=== PATIENT | female | born 1980 | race Caucasian/White ===

== ENCOUNTER 2016-07-02 11:25 | Emergency (ER) | payer BC ==
--- NOTE | 2016-07-02 12:10 | ED ---
Lower Extremity Injury HPI - General Chief Complaint: Extremity Injury, Lower Stated Complaint: left foot pain Time Seen by Provider: 07/02/16 12:04 Source: patient Mode of arrival: ambulatory Limitations: no limitations - History of Present Illness Initial Comments: Patient is a 35-year-old female presenting to the hospital with complaints of left plantar foot pain that started yesterday. Patient does not recall any injury to foot. Patient states she was just released from the hospital yesterday for pancreatitis and is currently awaiting surgery for cholecystectomy. Patient currently rates pain 2 out of 10 at rest, 8 out of 10 when she attempts to walk on it. Patient describes pain as sharp when she tries to walk on it and states it feels like his pocket of fluid just proximal to her fourth and fifth toes. Patient denies any previous injury or surgery to her left lower extremity. Patient states she took a Vicodin this morning mostly for her abdominal pain. Patient denies chills, fevers, nausea, vomiting , shortness of breath, chest pain, numbness or tingling. - Related Data Home Medications Medication Instructions Recorded Confirmed Levothyroxine Sodium [Synthroid] 25 mcg PO DAILY 12/07/14 07/02/16 Albuterol Sulfate [Proair Hfa] 2 puff INHALATION RT-Q6H PRN 04/26/15 07/02/16 Cholecalciferol [Vitamin D3] 1,000 unit PO DAILY 04/26/15 07/02/16 Montelukast Sodium [Singulair] 10 mg PO DAILY 07/02/16 07/02/16 Allergies Allergy/AdvReac Type Severity Reaction Status Date / Time venom-honey bee Allergy Unknown Verified 07/02/16 11:55 [bee venom (honey bee)] Review of Systems ROS Statement: Those systems with pertinent positive or pertinent negative responses have been documented in the HPI. ROS Other: All systems not noted in ROS Statement are negative. Past Medical History Past Medical History: Thyroid Disorder Additional Past Medical History / Comment(s): 04/26/15 Pt presented to [facility] ER with upper abdominal pain. Pain is severe, epigastric and radiates to her back. She has had N/V with it. Pain began last Sunday. She is admitted with clinical impression of pancreatitis. Other HX: pancreatitis, hypokalemia, hypothyroidism. History of Any Multi-Drug Resistant Organisms: None Reported Past Surgical History: Section, Orthopedic Surgery Additional Past Surgical History / Comment(s): R foot injury-Sx repair. Past Anesthesia/Blood Transfusion Reactions: No Reported Reaction Additional Past Anesthesia/Blood Transfusion Reaction / Comment(s): Pt states she has never recieved blood. Past Psychological History: Anxiety Additional Psychological History / Comment(s): Pt resides with her spouse and children. She is independent. She drives. Homemaker Smoking Status: Current every day smoker Past Alcohol Use History: Occasional Additional Past Alcohol Use History / Comment(s): Pt states she started smoking at age 17yrs and is alittle less than a ppd smoker. Pt states she drinks less than 7 drinks per week. Past Drug Use History: None Reported - Past Family History Father Family Medical History: Congestive Heart Failure (CHF) Additional Family Medical History / Comment(s): Father has a pacer. He is 63 yrs old. Mother Family Medical History: Cancer Additional Family Medical History / Comment(s): Mother had uterine cancer. She is 59 yrs old. General Exam Limitations: no limitations General appearance: alert, in no apparent distress Head exam: Present: atraumatic, normocephalic, normal inspection Eye exam: Present: normal appearance ENT exam: Present: normal exam, normal oropharynx, mucous membranes moist, normal external ear exam Neck exam: Present: normal inspection, full ROM. Absent: tenderness Respiratory exam: Present: normal lung sounds bilaterally. Absent: respiratory distress, wheezes, rales, rhonchi, stridor Cardiovascular Exam: Present: normal rhythm, tachycardia, normal heart sounds. Absent: systolic murmur GI/Abdominal exam: Present: soft, normal bowel sounds. Absent: distended, tenderness Extremities exam: Present: normal inspection, full ROM, tenderness (Tenderness to plantar surface of left foot proximal to third, fourth, and fifth toe.), normal capillary refill. Absent: pedal edema, joint swelling, calf tenderness Left Foot/Toe exam: Present: normal inspection, full ROM, tenderness (Tenderness to plantar surface proximal to third, fourth, and fifth toes). Absent: swelling, abrasion, laceration, ecchymosis, deformity, erythema, puncture wound, foreign body, calcaneal tenderness, tenderness at base of 5th metatarsal Neurovascular tendon exam: Present: no vascular compromise. Absent: abnormal cap refill, motor deficit, sensory deficit, tendon deficit, extremity cold to touch, foot drop Neurological exam: Present: alert, oriented X3, other (No focal deficits noted.) Psychiatric exam: Present: normal affect, normal mood Skin exam: Present: warm, dry, intact, normal color. Absent: rash Course Vital Signs 07/02/16 11:32 Temperature 98.7 F Pulse Rate 108 H Respiratory 20 Rate Blood Pressure 125/73 O2 Sat by Pulse 96 Oximetry Medical Decision Making - Medical Decision Making Left plantar foot pain suspect secondary to metatarsalgia. Patient instructed to continue Motrin and Tylenol for pain and we are walking shoes with good forefoot support. Patient started to avoid wearing sandals or walking barefoot. Patient instructed to follow-up with primary care physician or orthopedic surgeon in 7-10 days if pain persists. Patient agrees with treatment plan. Discharge instructions and return parameters reviewed. - Radiology Data Radiology results: report reviewed X-ray left foot: Osseous structures are intact and there is hypertrophic change and narrowing of the first MTP. Calcaneal spurs noted. There is no acute fracture or dislocation. Disposition Clinical Impression: Metatarsalgia of left foot Disposition: HOME SELF-CARE Condition: Good Instructions: Arthralgia (ED) Additional Instructions: Obtained with walking shoes that offer for foot support. Avoid walking barefoot. Continue Motrin or Tylenol for pain. May use ice or heat to help with the pain. Follow-up with primary care physician as directed. If pain persists, follow-up with orthopedic service for further evaluation. Referrals: Clementina Israel MD [Primary Care Provider] - 1-2 days [facility] [PHYSICIAN W[employer] MACHINIST] - 1-2 days Time of Disposition: 12:46
--- NOTE | 2016-07-02 12:27 | XR ---
EXAMINATION TYPE: XR foot complete LT DATE OF EXAM: 07/02/2016 COMPARISON: NONE HISTORY: Pain TECHNIQUE: Three views are submitted. FINDINGS: The osseous structures are intact and there is hypertrophic change and narrowing of the first MTP. Ca lcaneal spurs noted.. There is no acute fracture or dislocation. IMPRESSION: 1. No acute fracture or dislocation. If symptoms persist, follow-up exam in 7 to 10 days could be ob tained.
[2016-07-02 12:53] VITALS: BP 120/70; PULSE 78; RESP 16; TEMP 97.8
== END 2016-07-02 12:53 | disposition home or self-care (01) ==
LOC: EC 11:25
DX: M77.42 Metatarsalgia, left foot (principal); E03.9 Hypothyroidism, unspecified; F17.200 Nicotine dependence, unspecified, uncomplicated; Z79.899 Other long term (current) drug therapy; Z91.030 Bee allergy status
CPT/HCPCS: 99283

== ENCOUNTER 2016-07-06 13:33 | Day surgery (SDC) | payer BC ==
[2016-07-04 13:53] VITALS: BMI 38.4
--- NOTE | 2016-07-06 09:55 | P.GSHP ---
History of Present Illness H&P Date: 07/06/16 CHIEF COMPLAINT: Cholecystitis HISTORY OF PRESENT ILLNESS: The patient is a 36-year-old female who presents with history of epigastric including right upper quadrant abdominal pain. She underwent diagnostic studies for her gallbladder. Separately her clinical picture was consistent with cholecystitis. Now she presents for surgical intervention. PAST MEDICAL HISTORY: Please see list PAST SURGICAL HISTORY: Please see list MEDICATIONS: Please see list ALLERGIES: Denies. SOCIAL HISTORY: No illicit drug use or recent tobacco use FAMILY HISTORY: Pertinent for gallbladder disease REVIEW OF ORGAN SYSTEMS: CONSTITUTIONAL: No reports of fevers or chills. HEENT: Denies any troubles with the vision or hearing. PHYSICAL EXAM: VITAL SIGNS: Afebrile vital signs stable GENERAL: Well-developed pleasant in no acute distress. HEENT: No scleral icterus. Extraocular movements grossly intact. Moist buccal mucosa. NECK: Supple without lymphadenopathy. CHEST: Unlabored respirations. Equal bilateral excursions. CARDIOVASCULAR: Regular rate regular rhythm rhythm. Distal 2+ pulses. ABDOMEN: Soft, nondistended. Tender along the epigastrium and right upper quadrant. MUSCULOSKELETAL: No clubbing, cyanosis, or edema. NEURO: Cranial nerves II to XII within normal limits. No focal or lateralizing signs. PSYCH: Alert and oriented to person, place and time. ASSESSMENT: 1. Epigastric and right upper quadrant abdominal pain 2. Chronic cholecystitis 3. Symptomatic gallstones. PLAN: 1. Will need a robotic-assisted laparoscopic cholecystectomy possible open. Benefits and risks were described. 2. Heparin for DVT prophylaxis 5000 units. 3. Antibiotic prophylaxis. Past Medical History Past Medical History: Asthma, Thyroid Disorder Additional Past Medical History / Comment(s): currently having abd pain,recent admission to [facility] for Pacreatitis 06-29-16 thru 07-01-16.Hx 04/26/15 Pt presented to [facility] ER with upper abdominal pain. Pain is severe, epigastric and radiates to her back. She has had N/V with it. Pain began last Sunday. She is admitted with clinical impression of pancreatitis. Other HX: pancreatitis, hypokalemia, hypothyroidism,anemia History of Any Multi-Drug Resistant Organisms: None Reported Past Surgical History: Section, Orthopedic Surgery Additional Past Surgical History / Comment(s): R foot injury-Sx repair,c-sect x 2 Past Anesthesia/Blood Transfusion Reactions: No Reported Reaction Additional Past Anesthesia/Blood Transfusion Reaction / Comment(s): Pt states she has never recieved blood,took awhile to come out of anesthesia with foot surg. Past Psychological History: Anxiety Additional Psychological History / Comment(s): Pt resides with her spouse and children. She is independent. She drives. Homemaker Smoking Status: Current every day smoker Past Alcohol Use History: Occasional Additional Past Alcohol Use History / Comment(s): Pt states she started smoking at age 17yrs and is alittle less than a ppd smoker. Pt states she drinks less than 7 drinks per week. Past Drug Use History: None Reported - Past Family History Father Family Medical History: Congestive Heart Failure (CHF) Additional Family Medical History / Comment(s): Father has a pacer. Mother Family Medical History: Cancer Additional Family Medical History / Comment(s): Mother had uterine cancer. She is 59 yrs old. Medications and Allergies Home Medications Medication Instructions Recorded Confirmed Type Levothyroxine Sodium [Synthroid] 50 mcg PO QAM 12/07/14 07/04/16 History Albuterol Sulfate [Proair Hfa] 2 puff INHALATION RT-Q6H PRN 04/26/15 07/04/16 History Cholecalciferol [Vitamin D3] 1,000 unit PO DAILY 04/26/15 07/04/16 History Montelukast Sodium [Singulair] 10 mg PO QAM 07/02/16 07/04/16 History Hydrocodone/Acetaminophen [Ernul 1 each PO Q4H PRN 07/04/16 07/04/16 History 5-325 Tablet] Ibuprofen [Motrin] 600 mg PO Q6HR PRN 07/04/16 07/04/16 History Allergies Allergy/AdvReac Type Severity Reaction Status Date / Time venom-honey bee Allergy Swelling Verified 07/04/16 13:41 [bee venom (honey bee)] increasingly worse with each sting
[~2016-07-06 13:33] MED LIST: ACETAMINOPHEN IV (For NPO) 1,000 MG in EMPTY BAG 1 BAG IVPB ONE; DEXAMETHASONE SOD PHOSPHATE 10 MG/ML 1 ML VIAL IV ONE; HEPARIN SODIUM,PORCINE 5,000 UNIT/ML 1 ML VIAL SQ ONE; LACTATED RINGERS 1,000 ML IV SCH; LIDOCAINE 1% 20 ML VIAL (10MG/ML) FOR IV START INTRADERMA PRN; ONDANSETRON 4 MG/2 ML VIAL IVP ONE; SCOPOLAMINE 1.5MG/72HR PATCH TRANSDERM ONE; ceFAZolin 2 GM in SODIUM CHLORIDE 0.9% 100 ML IVPB ONE
[2016-07-06] MEDS ORDERED: LACTATED RINGERS 1,000 ML IV ONE ×2 (14:11→18:39)
[2016-07-06 15:08] LABS: ALT 23 U/L (9-52); AST 23 U/L (14-36); Alkaline Phosphatase 44 U/L (38-126); Anion Gap 9 mmol/L; Blood Urea Nitrogen 10 mg/dL (7-17); Calcium 9.6 mg/dL (8.4-10.2); Carbon Dioxide 26 mmol/L (22-30); Chloride 106 mmol/L (98-107); Glucose 97 mg/dL (74-99); Non-African American GFR(MDRD) >60 (>60 ml/min/1.73 sqM); Potassium 4.5 mmol/L (3.5-5.1); Sodium 141 mmol/L (137-145); Total Bilirubin 0.5 mg/dL (0.2-1.3); Total Protein 6.5 g/dL (6.3-8.2)
[2016-07-06] MEDS ORDERED: SUCCINYLCHOLINE CHLORIDE 100 MG/5 ML SYR IV ONE (17:17)
[2016-07-06] MEDS ORDERED: ROCURONIUM BROMIDE 10 MG/ML 10 ML VIAL IV ONE (17:17)
[2016-07-06] MEDS ORDERED: fentaNYL (PF) 50 MCG/ML 2 ML AMP ONE (17:17)
[2016-07-06] MEDS ORDERED: ALBUTEROL INHALER 60 PUFF/8 GM INHALER INHALATION ONE (17:17)
[2016-07-06] MEDS ORDERED: HYDROmorphone (PF) 1 MG/ML ONE (17:17)
[2016-07-06] MEDS ORDERED: LIDOCAINE 1% INJ 10MG/ML (20 ML MDV) ONE (17:17)
[2016-07-06] MEDS ORDERED: GLYCOPYRROLATE 0.2 MG/ML 2 ML VIAL ONE (17:17)
[2016-07-06] MEDS ORDERED: ESMOLOL 100 MG/10 ML VIAL ONE (17:17)
[2016-07-06] MEDS ORDERED: MIDAZOLAM 2 MG/2 ML VIAL ONE (17:17)
[2016-07-06] MEDS ORDERED: NEOSTIGMINE 1 MG/ML 10 ML VIAL ONE (17:17)
[2016-07-06] MEDS ORDERED: PROPOFOL 10 MG/ML 20 ML VIAL IV ONE (17:17)
[2016-07-06] MEDS ORDERED: BUPIVACAIN-EPI 0.25%-1:200,000 30 ML VIAL SQ ONE (17:39)
--- NOTE | 2016-07-06 18:36 | P.OP ---
Date of Procedure: 07/06/16 Preoperative Diagnosis: Postoperative Diagnosis: Procedure(s) Performed: Implants: Indications for Procedure: Operative Findings: Description of Procedure: SURGEON: TONY RAYGOZA MD MOLD PREPARER: aGbby Ramos PREOPERATIVE DIAGNOSES: 1. Chronic cholecystitis. 2. Family history of gallbladder disease. 3. Morbid obesity due to excess calories. 4. Body mass index 38.4 5. Symptomatic gallstones. 6. Right upper quadrant abdominal pain. 7. Gallstone pancreatitis. POSTOPERATIVE DIAGNOSES: 1. Chronic cholecystitis. 2. Family history of gallbladder disease. 3. Morbid obesity due to excess calories. 4. Body mass index 38.4 5. Symptomatic gallstones. 6. Right upper quadrant abdominal pain. 7. Gallstone pancreatitis. OPERATION: Robotic-assisted laparoscopic cholecystectomy, multiport ESTIMATED BLOOD LOSS: 5 mL. SPECIMENS REMOVED: Gallbladder. COMPLICATIONS: None. OPERATIVE FINDINGS: 1. Chronic cholecystitis. INDICATIONS: The patient is a 36-year-old female who presents with gallstone pancreatitis secondary to symptomatically gallstones. Surgical intervention with a laparoscopic cholecystectomy was described at length including injury to the biliary tree, bleeding, infection, need for further surgery. Informed consent was obtained. Robotic assisted laparoscopic approach was described. Benefits and risks of the procedure including but not limited to bleeding, infection, injury to the biliary tree was described. Informed consent was obtained. DESCRIPTION OF PROCEDURE: Patient was brought to the operating room, placed in supine position. After general induction, the abdomen had been prepped and draped in standard sterile fashion. The robotic da Swati SI system was primed. After a timeout protocol was performed, the patient had been prepped and draped in standard sterile fashion. The robot was docked along the right lateral abdomen. The patient was repositioned in reverse Trendelenburg position. Please note prior to docking of the robot; however, a 5 mm 0 degrees laparoscopic trocar entry was performed along the left upper quadrant. Next, two 8 mm robotic ports were placed along the right upper abdomen. The camera 12-mm port was maintained along the epigastrium. Another 8 mm port was placed along the left upper abdominal wall after exchanging the 5 mm port. Please note that the ports were placed at least 10 to 15 cm away from the target anatomy of the gallbladder. Using grasper for arm 3 and arm 2, including hook cautery for arm 1, the robotic system was docked and primed as described. Instruments were interchanged by the assistant branch manager including hook cautery, Bovie cautery scissors and clip appliers. I had sat at the console. Adhesions were identified along the infundibulum of the gallbladder and addressed using hook cautery including blunt dissection with a long forceps grasper. The gallbladder fundus was retracted over the dome of the liver. Initial attention was brought to the infundibulum which was gently retracted in the inferior lateral approach. Using a long forceps grasper, the cystic duct including the cystic artery was carefully skeletonized. Using a 2 large clips were placed proximally, and 2 large clips were placed distally along the cystic duct and then cut with cautery. Again care was taken to avoid any injury to the biliary tree as the common bile duct was clearly visualized during this portion of dissection. Next, the cystic artery was clipped twice proximally, once distally and then cauterized. Electro-Bovie cautery was used to remove the gallbladder from the hepatic fossa without decompression of the gallbladder. Hemostasis was checked and found to be adequate. The robot was undocked. I re-scrubbed into the case. Using a 10 mm Endo Catch bag via the 12 mm port, the specimen was removed from the abdominal cavity. The 12 mm port site was oversewn using 0 Vicryl including a Dedrick Bowser as well. All pneumoperitoneum instruments were evacuated from the abdominal cavity. The incisions were reapproximated using 4-0 Monocryl in an interrupted subcuticular fashion. Please note along the trocar sites, local anesthetic was placed as a field block prior to insertion of all instruments. Dermabond was applied to the skin. At the end of the procedure needle, sponge, and instrument count had been verified correct by the surgical oncologist. The patient was transferred to postanesthesia care unit in stable condition. The patient's was contacted regarding her level of care. Plan - Discharge Summary New Discharge Prescriptions: No Action Levothyroxine Sodium [Synthroid] 50 mcg PO QAM Albuterol Sulfate [Proair Hfa] 2 puff INHALATION RT-Q6H PRN PRN Reason: Shortness Of Breath Cholecalciferol [Vitamin D3] 1,000 unit PO DAILY Montelukast Sodium [Singulair] 10 mg PO QAM Ibuprofen [Motrin] 600 mg PO Q6HR PRN PRN Reason: Pain Hydrocodone/Acetaminophen [Brandywine 5-325 Tablet] 1 each PO Q4H PRN PRN Reason: Pain Discharge Medication List Levothyroxine Sodium [Synthroid] 50 mcg PO QAM 12/07/14 [History] Albuterol Sulfate [Proair Hfa] 2 puff INHALATION RT-Q6H PRN 04/26/15 [History] Cholecalciferol [Vitamin D3] 1,000 unit PO DAILY 04/26/15 [History] Montelukast Sodium [Singulair] 10 mg PO QAM 07/02/16 [History] Hydrocodone/Acetaminophen [Brandywine 5-325 Tablet] 1 each PO Q4H PRN 07/04/16 [ History] Ibuprofen [Motrin] 600 mg PO Q6HR PRN 07/04/16 [History] Patient Instructions/Handouts: *Surgery [facility] - Scopalamine Patch Instructions
[2016-07-06] MEDS ORDERED: NALOXONE 0.4 MG/ML 1 ML VIAL IV PRN (18:38)
[2016-07-06] MEDS ORDERED: HYDROcodone/APAP 5-325MG 1 EACH TAB PO PRN (18:38)
[2016-07-06 18:51] VITALS: TEMP 98
[2016-07-06] MEDS: HYDROmorphone 1 MG/ML 1 ML SYRINGE IVP PRN ×3 (19:01→19:29)
[2016-07-06 21:24] VITALS: BP 126/84; PULSE 94; RESP 18
== END 2016-07-06 21:33 | disposition home or self-care (01) ==
LOC: OR 13:33
PROVIDERS: ATTEND Surgery Plastic and Reconstructive Surgery
DX: K80.10 Calculus of gallbladder with chronic cholecystitis without obstruction (principal); K82.8 Other specified diseases of gallbladder; K85.10 Biliary acute pancreatitis without necrosis or infection; Z83.79 Family history of other diseases of the digestive system; E66.01 Morbid (severe) obesity due to excess calories; Z68.38 Body mass index [BMI] 38.0-38.9, adult; J45.909 Unspecified asthma, uncomplicated; E03.9 Hypothyroidism, unspecified; F41.9 Anxiety disorder, unspecified; F17.200 Nicotine dependence, unspecified, uncomplicated; Z79.1 Long term (current) use of non-steroidal anti-inflammatories (NSAID); Z79.899 Other long term (current) drug therapy; Z91.030 Bee allergy status
CPT/HCPCS: 81025; 88304; 80053; 47562; J2250; J1644; J1100; J2710; J0690; J2405; J2001; J3010; J1170; J0131; J0330; J2704

== ENCOUNTER 2016-10-05 20:24 | Emergency (ER) | payer BC ==
[2016-10-05 20:32] VITALS: BP 127/84; PULSE 106; RESP 20; TEMP 98
[2016-10-05] MEDS ORDERED: diphenhydrAMINE 50 MG/ML 1 ML VIAL IM STA (20:39)
[2016-10-05] MEDS ORDERED: methylPREDNISolone SOD SUCCI 125 MG/2 ML VIAL IM STA (20:39)
[2016-10-05] MEDS ORDERED: FAMOTIDINE 20 MG TAB PO STA (20:39)
--- NOTE | 2016-10-05 20:46 | ED ---
General Adult HPI - General Chief complaint: Skin/Abscess/Foreign Body Stated complaint: Allergic reaction Time Seen by Provider: 10/05/16 20:33 Source: patient, RN notes reviewed Mode of arrival: ambulatory Limitations: no limitations - History of Present Illness Initial comments: 36 yo female presents to the ER with cc of allergic reaction. patient states she started with hives throughout the body and now it has progressed to the face. patient states that she has had no difficulty breathing. patient does not know what she has been exposed to. Patient states that she has noticed some swelling. Patient states there is been no other symptoms with this. Patient was concerned due to the worsening rash so she thought that she should be evaluated. Patient denies any new foods soaps or detergents.Patient denies any recent fever, chills, shortness of breath, chest pain, back pain, abdominal pain , nausea vomiting, numbness or tingling, dysuria or hematuria, constipation or diarrhea, headaches or visual changes, or any other current symptoms. - Related Data Home Medications Medication Instructions Recorded Confirmed Levothyroxine Sodium [Synthroid] 50 mcg PO QAM 12/07/14 10/05/16 Albuterol Sulfate [Proair Hfa] 2 puff INHALATION RT-Q6H PRN 04/26/15 10/05/16 Cholecalciferol [Vitamin D3] 1,000 unit PO DAILY 04/26/15 10/05/16 Montelukast Sodium [Singulair] 10 mg PO QAM 07/02/16 10/05/16 Previous Rx's Medication Instructions Recorded Famotidine [Pepcid] 20 mg PO BID #10 tablet 10/05/16 diphenhydrAMINE [Benadryl] 50 mg PO HS PRN #5 capsule 10/05/16 predniSONE 50 mg PO DAILY #5 tab 10/05/16 Allergies Allergy/AdvReac Type Severity Reaction Status Date / Time venom-honey bee Allergy Swelling Verified 10/05/16 20:32 [bee venom (honey bee)] increasingly worse with each sting Review of Systems ROS Statement: Those systems with pertinent positive or pertinent negative responses have been documented in the HPI. ROS Other: All systems not noted in ROS Statement are negative. Past Medical History Past Medical History: Asthma, Thyroid Disorder Additional Past Medical History / Comment(s): currently having abd pain,recent admission to [facility] for Pacreatitis 06-29-16 thru 07-01-16.Hx 04/26/15 Pt presented to [facility] ER with upper abdominal pain. Pain is severe, epigastric and radiates to her back. She has had N/V with it. Pain began last Sunday. She is admitted with clinical impression of pancreatitis. Other HX: pancreatitis, hypokalemia, hypothyroidism,anemia History of Any Multi-Drug Resistant Organisms: None Reported Past Surgical History: Section, Orthopedic Surgery Additional Past Surgical History / Comment(s): R foot injury-Sx repair,c-sect x 2 Past Anesthesia/Blood Transfusion Reactions: No Reported Reaction Additional Past Anesthesia/Blood Transfusion Reaction / Comment(s): Pt states she has never recieved blood,took awhile to come out of anesthesia with foot surg. Past Psychological History: Anxiety Smoking Status: Current every day smoker Past Alcohol Use History: Occasional Past Drug Use History: None Reported - Past Family History Father Family Medical History: Congestive Heart Failure (CHF) Additional Family Medical History / Comment(s): Father has a pacer. Mother Family Medical History: Cancer Additional Family Medical History / Comment(s): Mother had uterine cancer. She is 59 yrs old. General Exam Limitations: no limitations General appearance: alert, in no apparent distress Eye exam: Present: normal appearance, PERRL, EOMI. Absent: scleral icterus, conjunctival injection, periorbital swelling Neck exam: Present: normal inspection. Absent: tenderness, meningismus, lymphadenopathy Respiratory exam: Present: normal lung sounds bilaterally. Absent: respiratory distress, wheezes, rales, rhonchi, stridor Cardiovascular Exam: Present: regular rate, normal rhythm, normal heart sounds. Absent: systolic murmur, diastolic murmur, rubs, gallop, clicks Extremities exam: Present: normal inspection, full ROM, normal capillary refill. Absent: tenderness, pedal edema, joint swelling, calf tenderness Back exam: Present: normal inspection Neurological exam: Present: alert, oriented X3 Psychiatric exam: Present: normal affect Skin exam: Present: warm, dry, intact, urticaria (diffuse) Course Vital Signs 10/05/16 20:30 Temperature 98 F Pulse Rate 106 H Respiratory 20 Rate Blood Pressure 127/84 O2 Sat by Pulse 98 Oximetry Medical Decision Making - Medical Decision Making 36 chest male presents to the emergency department with a chief complaint of what appears to be urticaria. This time unknown cause. We will treat patient with steroids and Benadryl and Pepcid. Return on this for home. She has had this for 2 days any anaphylaxis we discussed return parameters and all the questions. She stated that she understood and she is again plan. This time she 'll be discharged home. Disposition Clinical Impression: Urticaria Disposition: HOME SELF-CARE Condition: Stable Instructions: Urticaria (ED) Additional Instructions: Please use medication as discussed. Please follow up with family doctor if symptoms have not improved over the next two days. Please return to the emergency room if your symptoms increase or worsen or for any other concerns. Prescriptions: diphenhydrAMINE [Benadryl] 50 mg PO HS PRN #5 capsule PRN Reason: Itching Famotidine [Pepcid] 20 mg PO BID #10 tablet predniSONE 50 mg PO DAILY #5 tab Referrals: Clementina Israel MD [Primary Care Provider] - 1-2 days Time of Disposition: 21:20
== END 2016-10-05 21:39 | disposition home or self-care (01) ==
LOC: EC 20:24
DX: L50.9 Urticaria, unspecified (principal); E03.9 Hypothyroidism, unspecified; J45.909 Unspecified asthma, uncomplicated; F17.200 Nicotine dependence, unspecified, uncomplicated; Z86.2 Personal history of diseases of the blood and blood-forming organs and certain disorders involving the immune mechanism; Z91.030 Bee allergy status; Z79.899 Other long term (current) drug therapy
CPT/HCPCS: 99283; 96372 ×2; J1200; J2930

== ENCOUNTER 2016-10-08 13:22 | Emergency (ER) | payer BC ==
[2016-10-08] MEDS ORDERED: FAMOTIDINE 20 MG/2 ML VIAL IV STA (13:49)
[2016-10-08] MEDS ORDERED: diphenhydrAMINE 50 MG/ML 1 ML VIAL IVP STA (13:49)
[2016-10-08] MEDS ORDERED: methylPREDNISolone SOD SUCCI 125 MG/2 ML VIAL IV STA (13:49)
[2016-10-08] MEDS ORDERED: IPRATROPIUM-ALBUTEROL 3 ML NEB INHALATION STA (13:49)
--- NOTE | 2016-10-08 13:52 | ED ---
General Adult HPI - General Chief complaint: Allergic Reaction Stated complaint: Rash/SOB Time Seen by Provider: 10/08/16 13:41 Source: patient, RN notes reviewed Mode of arrival: wheelchair Limitations: no limitations - History of Present Illness Initial comments: Patient's a 36-year-old female who presents emergency room today with chief complaint of ALLERGIC reaction. Patient does admit that she broke out in a rash and hives approximately 2 days ago. Patient does admit that she did have an ALLERGY shot done 4 days ago as well. Patient states that she was seen here the emergency room started on steroids, Benadryl, Pepcid. She states that she did not take her medications yet today as she is trying to take her thyroid medication and cannot take these medications for 4 hours. Patient does admit that she's felt increased shortness breath over the last few hours at home. States rash is not improving touch come back here to the emergency room to have it evaluated. Patient denies any known contact or reason for the reaction. She denies any other complaints or symptoms at this time. - Related Data Home Medications Medication Instructions Recorded Confirmed Albuterol Sulfate [Proair Hfa] 2 puff INHALATION RT-Q6H PRN 04/26/15 10/08/16 Levothyroxine Sodium [Synthroid] 50 mcg PO DAILY 10/08/16 10/08/16 Previous Rx's Medication Instructions Recorded Famotidine [Pepcid] 20 mg PO BID #10 tablet 10/05/16 diphenhydrAMINE [Benadryl] 50 mg PO HS PRN #5 capsule 10/05/16 predniSONE 50 mg PO DAILY #5 tab 10/05/16 predniSONE 50 mg PO DAILY #3 tab 10/08/16 Allergies Allergy/AdvReac Type Severity Reaction Status Date / Time venom-honey bee Allergy Swelling Verified 10/08/16 13:55 [bee venom (honey bee)] increasingly worse with each sting Review of Systems ROS Statement: Those systems with pertinent positive or pertinent negative responses have been documented in the HPI. ROS Other: All systems not noted in ROS Statement are negative. Past Medical History Past Medical History: Asthma, Thyroid Disorder Additional Past Medical History / Comment(s): currently having abd pain,recent admission to [facility] for Pacreatitis 06-29-16 thru 07-01-16.Hx 04/26/15 Pt presented to [facility] ER with upper abdominal pain. Pain is severe, epigastric and radiates to her back. She has had N/V with it. Pain began last Sunday. She is admitted with clinical impression of pancreatitis. Other HX: pancreatitis, hypokalemia, hypothyroidism,anemia History of Any Multi-Drug Resistant Organisms: None Reported Past Surgical History: Section, Orthopedic Surgery Additional Past Surgical History / Comment(s): R foot injury-Sx repair,c-sect x 2 Past Anesthesia/Blood Transfusion Reactions: No Reported Reaction Additional Past Anesthesia/Blood Transfusion Reaction / Comment(s): Pt states she has never recieved blood,took awhile to come out of anesthesia with foot surg. Past Psychological History: Anxiety Smoking Status: Current every day smoker Past Alcohol Use History: Occasional Past Drug Use History: None Reported - Past Family History Father Family Medical History: Congestive Heart Failure (CHF) Additional Family Medical History / Comment(s): Father has a pacer. Mother Family Medical History: Cancer Additional Family Medical History / Comment(s): Mother had uterine cancer. She is 59 yrs old. General Exam - General Exam Comments Initial Comments: General: The patient is awake and alert, in no distress, and does not appear acutely ill. Eye: Pupils are equal, round and reactive to light, extra-ocular movements are intact. No nystagmus. There is normal conjunctiva bilaterally. No signs of icterus. Ears, nose, mouth and throat: There are moist mucous membranes and no oral lesions. Neck: The neck is supple, there is no tenderness or JVD. Cardiovascular: There is a regular rate and rhythm. No murmur, rub or gallop is appreciated. Respiratory: Lungs are clear to auscultation, respirations are non-labored, breath sounds are equal. No wheezes, stridor, rales, or rhonchi. Gastrointestinal: Soft, non-distended, non-tender abdomen without masses or organomegaly noted. There is no rebound or guarding present. No CVA tenderness. Bowel sounds are unremarkable. Musculoskeletal: Normal ROM, no tenderness. Strength 5/5. Sensation intact. Pulses equal bilaterally 2+. Neurological: A&O x 3. CN II-XII intact, There are no obvious motor or sensory deficits. Coordination appears grossly intact. Speech is normal. Skin: Skin is warm and dry and no rashes or lesions are noted. Psychiatric: Cooperative, appropriate mood & affect, normal judgment. Limitations: no limitations Course Vital Signs 10/08/16 10/08/16 10/08/16 13:38 14:00 14:06 Temperature 98.9 F Pulse Rate 109 H 88 92 Respiratory 24 Rate Blood Pressure 139/92 O2 Sat by Pulse 96 Oximetry Medical Decision Making - Medical Decision Making Patient reexamined at this time shows no signs of distress. She missed a history of asthma. She did have some wheezing bilaterally. She has not been using breathing treatments at home but she does admit that it seems to be worse with ALLERGIES and change in weather. Patient is advised continue with her treatments at home at this time pulse ox is 98% room air and is feeling much better. Patient is advised to continue her previous to prescribed steroid will be given a prescription for 3 more tabs to continue steroids for an infectious 3 days. She is advised to follow-up the family doctor over the next 2 days. Advised continue also Benadryl Pepcid. Advised return here to emergency room if any symptoms increase or worsen. Patient states understanding and is in agreement. Disposition Clinical Impression: Allergic reaction Disposition: HOME SELF-CARE Condition: Good Instructions: Urticaria (ED) Additional Instructions: Please use medication as discussed. Please follow-up with family doctor in the next 2 days of symptoms have not improved. Please return to emergency room if the symptoms increase or worsen or for any other concerns. Prescriptions: predniSONE 50 mg PO DAILY #3 tab Referrals: Clementina Israel MD [Primary Care Provider] - 1-2 days Time of Disposition: 15:21
[2016-10-08 15:44] VITALS: BP 124/70; PULSE 96; RESP 16; TEMP 99.5
== END 2016-10-08 15:42 | disposition home or self-care (01) ==
LOC: EC 13:22
DX: T78.40XA Allergy, unspecified, initial encounter (principal); R06.02 Shortness of breath; E07.9 Disorder of thyroid, unspecified; F17.200 Nicotine dependence, unspecified, uncomplicated; Z79.899 Other long term (current) drug therapy; Z91.030 Bee allergy status
CPT/HCPCS: 94640; 99283; 96374; 96375 ×2; J1200; J2930

== ENCOUNTER 2017-11-17 23:13 | Inpatient (IN) | payer BC ==
[2017-11-17] MEDS ORDERED: ONDANSETRON 4 MG/2 ML VIAL IVP STA (23:50)
[2017-11-17] MEDS ORDERED: MORPHINE SULFATE 4 MG/ML SYRINGE IV STA (23:50)
[2017-11-17] MEDS ORDERED: SODIUM CHLORIDE 0.9% 1,000 ML IV STA ×2 (23:50)
--- NOTE | 2017-11-17 23:58 | ED ---
Abdominal Pain HPI - General Chief Complaint: Abdominal Pain Stated Complaint: VOMITING,BACK PAIN Time Seen by Provider: 11/17/17 23:31 Source: patient Mode of arrival: ambulatory Limitations: no limitations - History of Present Illness Initial Comments: Patient is a 37-year-old female presenting for abdominal pain. Patient states that she's got recurrent history of pancreatitis and that for the last couple days, she has had 6 episodes of vomiting. The pain and then became more epigastric as well as in the upper back and she feels like it's a stabbing sensation. It is not associated with fevers or chills as well as chest pain or shortness of breath but she thinks that this is consistent with her prior pancreatitis episodes. She also denies taking any alcohol which she has done in the past. - Related Data Home Medications Medication Instructions Recorded Confirmed Levothyroxine Sodium [Synthroid] 50 mcg PO DAILY 10/08/16 10/12/17 Cholecalciferol (Vitamin D3) 2,000 unit PO DAILY 10/12/17 10/12/17 [Vitamin D3] Ferrous Sulfate [Feosol] 325 mg PO DAILY 10/12/17 10/12/17 Allergies Allergy/AdvReac Type Severity Reaction Status Date / Time venom-honey bee Allergy Swelling Verified 11/17/17 23:22 [bee venom (honey bee)] increasingly worse with each sting Review of Systems ROS Statement: Those systems with pertinent positive or pertinent negative responses have been documented in the HPI. Constitutional: Negative for chills, fatigue and fever. HENT: Negative for congestion. Respiratory: Negative for chest tightness, shortness of breath and wheezing. Negative for cough Cardiovascular: Negative for chest pain and palpitations. Gastrointestinal: Positive for abdominal pain and nausea/vomiting. Negative for abdominal distention, diarrhea. Genitourinary: Negative for dysuria. Musculoskeletal: Positive for back pain, neck pain and neck stiffness. Skin: Negative for color change. Neurological: Negative for dizziness, speech difficulty, weakness and light- headedness. Psychiatric/Behavioral: Negative for agitation and confusion. Negative for anxiety ROS Other: All systems not noted in ROS Statement are negative. Past Medical History Past Medical History: Asthma, Thyroid Disorder Additional Past Medical History / Comment(s): Other HX: pancreatitis, hypokalemia, hypothyroidism,anemia History of Any Multi-Drug Resistant Organisms: None Reported Past Surgical History: Section, Orthopedic Surgery Additional Past Surgical History / Comment(s): R foot injury-Sx repair,c-sect x 2 Past Anesthesia/Blood Transfusion Reactions: No Reported Reaction Additional Past Anesthesia/Blood Transfusion Reaction / Comment(s): Pt states she has never recieved blood,took awhile to come out of anesthesia with foot surg. Past Psychological History: Anxiety Smoking Status: Current every day smoker Past Alcohol Use History: Occasional Past Drug Use History: Marijuana - Past Family History Father Family Medical History: Congestive Heart Failure (CHF) Additional Family Medical History / Comment(s): Father has a pacer. Mother Family Medical History: Cancer Additional Family Medical History / Comment(s): Mother had uterine cancer. She is 59 yrs old. General Exam - General Exam Comments Initial Comments: Constitutional: Pt is oriented to person, place, and time. Pt appears well- developed and well-nourished. No distress. HENT: Head: Normocephalic and atraumatic. Eyes: EOM are normal. Neck: Normal range of motion. Neck supple. Cardiovascular: Tachycardia present, regular rhythm, S1 normal, S2 normal and normal heart sounds. Exam reveals no gallop and no friction rub. No murmur heard. Pulmonary/Chest: Effort normal and breath sounds normal. No tachypnea and no bradypnea. No respiratory distress. No wheezes or rales noted. Abdominal: Soft. Bowel sounds are normal. Pt exhibits no shifting dullness, no distension, no pulsatile liver, no fluid wave, no abdominal bruit and no ascites. There is no tenderness. There is no rigidity, no rebound, no guarding, no tenderness at McBurney's point and negative Aguayo's sign. Musculoskeletal: Normal range of motion. Neurological: Pt is alert and oriented to person, place, and time. No cranial nerve deficit. Skin: Skin is warm and dry. No rash noted. Pt is not diaphoretic. No erythema. No pallor. Psychiatric: Pt has a normal mood and affect. Pt behavior is normal. Thought content normal. Limitations: no limitations Course Vital Signs 11/17/17 11/18/17 23:22 00:53 Temperature 97.0 F L Pulse Rate 116 H 79 Respiratory 18 18 Rate Blood Pressure 149/92 117/79 O2 Sat by Pulse 97 99 Oximetry Medical Decision Making - Medical Decision Making Laboratory studies showed that there is no significant leukocytosis and no evidence of pancreatitis. However, there was significant pancreatitis his lipase is elevated at 10,465. For this, the patient was made nothing by mouth and started on normal saline infusion at 200 mL per hour.Explained all labs and diagnostic test results and that we will admit patient to hospital. Pt is agreeable to plan and case has been discussed with Dr. Vasquez and they agree to accept the pt. - Lab Data Result diagrams: 11/17/17 23:34 11/17/17 23:34 Lab Results 11/17/17 11/17/17 11/17/17 Range/Units 23:34 23:34 23:34 WBC 11.1 H (3.8-10.6) k/uL RBC 4.85 (3.80-5.40) m/uL Hgb 15.7 (11.4-16.0) gm/dL Hct 46.4 H (34.0-46.0) % MCV 95.6 (80.0-100.0) fL MCH 32.3 (25.0-35.0) pg MCHC 33.8 (31.0-37.0) g/dL RDW 12.9 (11.5-15.5) % Plt Count 288 (150-450) k/uL Neutrophils % 71 % Lymphocytes % 19 % Monocytes % 4 % Eosinophils % 3 % Basophils % 0 % Neutrophils # 7.9 H (1.3-7.7) k/uL Lymphocytes # 2.1 (1.0-4.8) k/uL Monocytes # 0.5 (0-1.0) k/uL Eosinophils # 0.4 (0-0.7) k/uL Basophils # 0.0 (0-0.2) k/uL Sodium 138 (137-145) mmol/L Potassium 3.5 (3.5-5.1) mmol/L Chloride 102 (98-107) mmol/L Carbon Dioxide 19 L (22-30) mmol/L Anion Gap 17 mmol/L BUN 11 (7-17) mg/dL Creatinine 0.62 (0.52-1.04) mg/dL Est GFR (CKD-EPI)AfAm >90 (>60 ml/min/1.73 sqM) Est GFR (CKD-EPI)NonAf >90 (>60 ml/min/1.73 sqM) Glucose 95 (74-99) mg/dL Calcium 10.3 H (8.4-10.2) mg/dL Total Bilirubin 0.9 (0.2-1.3) mg/dL AST 18 (14-36) U/L ALT 26 (9-52) U/L Alkaline Phosphatase 73 (38-126) U/L Total Protein 7.9 (6.3-8.2) g/dL Albumin 4.8 (3.5-5.0) g/dL Lipase 00713 H (23-300) U/L Urine Color Urine Appearance (Clear) Urine pH (5.0-8.0) Ur Specific [place] (1.001-1.035) Urine Protein (Negative) Urine Glucose (UA) (Negative) Urine Ketones (Negative) Urine Blood (Negative) Urine Nitrite (Negative) Urine Bilirubin (Negative) Urine Urobilinogen (<2.0) mg/dL Ur Leukocyte Esterase (Negative) Urine RBC (0-5) /hpf Urine WBC (0-5) /hpf Ur Squamous Epith Cells (0-4) /hpf Urine Mucus (None) /hpf Urine HCG, Qual Not Detected (Not Detectd) 11/17/17 Range/Units 23:34 WBC (3.8-10.6) k/uL RBC (3.80-5.40) m/uL Hgb (11.4-16.0) gm/dL Hct (34.0-46.0) % MCV (80.0-100.0) fL MCH (25.0-35.0) pg MCHC (31.0-37.0) g/dL RDW (11.5-15.5) % Plt Count (150-450) k/uL Neutrophils % % Lymphocytes % % Monocytes % % Eosinophils % % Basophils % % Neutrophils # (1.3-7.7) k/uL Lymphocytes # (1.0-4.8) k/uL Monocytes # (0-1.0) k/uL Eosinophils # (0-0.7) k/uL Basophils # (0-0.2) k/uL Sodium (137-145) mmol/L Potassium (3.5-5.1) mmol/L Chloride (98-107) mmol/L Carbon Dioxide (22-30) mmol/L Anion Gap mmol/L BUN (7-17) mg/dL Creatinine (0.52-1.04) mg/dL Est GFR (CKD-EPI)AfAm (>60 ml/min/1.73 sqM) Est GFR (CKD-EPI)NonAf (>60 ml/min/1.73 sqM) Glucose (74-99) mg/dL Calcium (8.4-10.2) mg/dL Total Bilirubin (0.2-1.3) mg/dL AST (14-36) U/L ALT (9-52) U/L Alkaline Phosphatase (38-126) U/L Total Protein (6.3-8.2) g/dL Albumin (3.5-5.0) g/dL Lipase (23-300) U/L Urine Color Yellow Urine Appearance Cloudy H (Clear) Urine pH 6.0 (5.0-8.0) Ur Specific [place] 1.028 (1.001-1.035) Urine Protein 2+ H (Negative) Urine Glucose (UA) Negative (Negative) Urine Ketones 4+ H (Negative) Urine Blood Trace H (Negative) Urine Nitrite Negative (Negative) Urine Bilirubin Negative (Negative) Urine Urobilinogen 2.0 (<2.0) mg/dL Ur Leukocyte Esterase Negative (Negative) Urine RBC 1 (0-5) /hpf Urine WBC 2 (0-5) /hpf Ur Squamous Epith Cells 21 H (0-4) /hpf Urine Mucus Rare H (None) /hpf Urine HCG, Qual (Not Detectd) Disposition Clinical Impression: Pancreatitis Disposition: ADMITTED IP TO THIS [facility] Condition: Good Referrals: Clementina Israel MD [Primary Care Provider] - 1-2 days Decision to Admit Reason: Admit from EC Decision Date: 11/18/17 Decision Time: 01:06
[2017-11-18 00:02] LABS: Basophils % (A) 0 %; Eosinophils # (A) 0.4 k/uL (0-0.7); Eosinophils % (A) 3 %; HCT 46.4 % (34.0-46.0); HGB 15.7 gm/dL (11.4-16.0); Lymphocytes # (A) 2.1 k/uL (1.0-4.8); Lymphocytes % (A) 19 %; MCH 32.3 pg (25.0-35.0); MCHC 33.8 g/dL (31.0-37.0); MCV 95.6 fL (80.0-100.0); Mean Platelet Volume 7.2; Monocytes # (A) 0.5 k/uL (0-1.0); Monocytes % (A) 4 %; Neutrophils # (A) 7.9 k/uL (1.3-7.7); Neutrophils % (A) 71 %; Platelet Count 288 k/uL (150-450); RBC 4.85 m/uL (3.80-5.40); RDW 12.9 % (11.5-15.5); WBC 11.1 k/uL (3.8-10.6)
[2017-11-18 00:04] LABS: Appearance,Urine Cloudy (Clear); Bilirubin,Urine Negative (Negative); Blood,Urine Trace (Negative); Color,Urine Yellow; Glucose,Urine (UA) Negative (Negative); Ketones,Urine 4+ (Negative); Leukocyte Esterase,Urine Negative (Negative); Mucus,Urine Rare /hpf; Nitrite,Urine Negative (Negative); Protein,Urine 2+ (Negative); RBC,Urine 1 /hpf (0-5); Specific Gravity,Urine 1.028 (1.001-1.035); Squamous Epithelial Cell,Urine 21 /hpf (0-4); WBC,Urine 2 /hpf (0-5)
[2017-11-18 00:10] LABS: ALT 26 U/L (9-52); AST 18 U/L (14-36); Albumin 4.8 g/dL (3.5-5.0); Alkaline Phosphatase 73 U/L (38-126); Anion Gap 17 mmol/L; Blood Urea Nitrogen 11 mg/dL (7-17); Calcium 10.3 mg/dL (8.4-10.2); Carbon Dioxide 19 mmol/L (22-30); Chloride 102 mmol/L (98-107); Glucose 95 mg/dL (74-99); Potassium 3.5 mmol/L (3.5-5.1); Sodium 138 mmol/L (137-145); Total Bilirubin 0.9 mg/dL (0.2-1.3); Total Protein 7.9 g/dL (6.3-8.2)
[2017-11-18] MEDS ORDERED: HYDROmorphone 1 MG/ML 1 ML SYRINGE IVP STA (00:26)
[2017-11-18 00:48] LABS: Lipase 10465 U/L (23-300)
[2017-11-18] MEDS ORDERED: SODIUM CHLORIDE 0.9% 1,000 ML IV STA (01:03)
[2017-11-18] MEDS ORDERED: NALOXONE 0.4 MG/ML 1 ML VIAL IV PRN (01:04)
[2017-11-18] MEDS: HYDROmorphone 1 MG/ML 1 ML SYRINGE IVP PRN ×11 (03:04→23:57)
[2017-11-18] MEDS: LACTATED RINGERS 1,000 ML IV SCH ×3 (06:26→20:18)
[2017-11-18] MEDS: LEVOTHYROXINE 50 MCG TAB PO SCH (06:26)
--- NOTE | 2017-11-18 06:55 | P.HPIM ---
History of Present Illness H&P Date: 11/18/17 Chief Complaint: abd pain 37-year-old female with history of asthma, and recurrent pancreatitis. She presented due to recurrent vomiting over the past few days associated with epigastric abdominal pain radiating to the back stabbing in nature 10 out of 10 in severity, which is consistent with her prior pancreatitis attacks, eating makes pain worse. This was associated with repeated nausea and vomiting, she couldnot keep anything down, and loose diarrhea non bloody no melena. Diarrhea has stopped for the past 1-2 days Patient has history of cholecystectomy, Patient denies any alcohol intake, changes in her recent medications, denies any trauma to the abdomen. Patient denies any fevers or chills, headache changes in her vision or hearing denies any focal neurologic deficits denies any chest pain or trouble breathing Review of Systems Pertinent positives as noted in HPI. All other systems were reviewed and are negative Past Medical History Past Medical History: Asthma, Thyroid Disorder Additional Past Medical History / Comment(s): Other HX: pancreatitis, hypokalemia, hypothyroidism,anemia, vit D deficiency History of Any Multi-Drug Resistant Organisms: None Reported Past Surgical History: Section, Cholecystectomy, Orthopedic Surgery Additional Past Surgical History / Comment(s): R foot injury-Sx repair,c-sect x 2 Past Anesthesia/Blood Transfusion Reactions: No Reported Reaction Additional Past Anesthesia/Blood Transfusion Reaction / Comment(s): Pt states she has never recieved blood,took awhile to come out of anesthesia with foot surg. Past Psychological History: ADD/ADHD, Anxiety Additional Psychological History / Comment(s): Pt resides with her spouse and children. She is independent. She drives. Homemaker Smoking Status: Current every day smoker Past Alcohol Use History: Occasional Additional Past Alcohol Use History / Comment(s): Pt states she started smoking at age 17yrs and is alittle less than a ppd smoker. Pt states she drinks less than 7 drinks per week. Past Drug Use History: Marijuana Additional Drug Use History / Comment(s): Pt smokes marijuana occasionally. - Past Family History Father Family Medical History: Congestive Heart Failure (CHF) Additional Family Medical History / Comment(s): Father has a pacer. Mother Family Medical History: Cancer Additional Family Medical History / Comment(s): Mother had uterine cancer. She is 59 yrs old. Medications and Allergies Home Medications Medication Instructions Recorded Confirmed Type Levothyroxine Sodium [Synthroid] 50 mcg PO DAILY 10/08/16 11/18/17 History Cholecalciferol (Vitamin D3) 2,000 unit PO DAILY 10/12/17 11/18/17 History [Vitamin D3] Ferrous Sulfate [Feosol] 325 mg PO DAILY 10/12/17 11/18/17 History Albuterol Inhaler [Ventolin Hfa 1 - 2 puff INHALATION RT-Q6H PRN 11/18/17 History Inhaler] Allergies Allergy/AdvReac Type Severity Reaction Status Date / Time venom-honey bee Allergy Intermediate Swelling Verified 11/18/17 02:05 [bee venom (honey bee)] increasingly worse with each sting Physical Exam Vitals: Vital Signs Temp Pulse Pulse Resp BP BP Pulse Ox 11/18/17 01:54 98.2 F 72 18 140/85 100 11/18/17 01:24 84 19 134/100 99 11/18/17 00:53 79 18 117/79 99 11/17/17 23:22 97.0 F L 116 H 18 149/92 97 Intake and Output 11/17/17 11/17/17 11/18/17 14:59 22:59 06:59 Intake Total 0 Balance 0 Intake: Oral 0 Other: Weight 86.455 kg Constitutional: No acute distress, conversant, pleasant Eyes: Anicteric sclerae, moist conjunctiva, no lid-lag Pupils equal round reactive to light ENMT: NC/AT Oropharynx clear, no erythema, or exudates Neck: Supple, FROM, no masses, or JVD No carotid bruits No thyromegaly Lungs: Clear to auscultation Clear to percussion Normal respiratory effort, no accessory muscle use Cardiovascular: Heart regular in rate and rhythm, No murmurs, gallops, or rubs No peripheral edema Abdominal: Soft Some discomfort to deep palpation of the epigastric region , no guarding, rebound or rigidity Abdomen moving with respiration Normoactive bowel sounds No hepatomegaly, No splenomegaly No palpable mass No abdominal wall hernia noted Skin: Normal temperature, tone, texture, turgor No induration No subcutaneous nodules No rash, lesions No ulcers Extremities: No digital cyanosis No clubbing Pedal pulses intact and symmetrical Radial pulses intact and symmetrical No calf tenderness Psychiatric: Alert and oriented to person, place and time Appropriate affect fair judgment Neuro Muscles Strength 5/5 in all 4 extremities Sensation to light touch grossly present throughout Cranial nerves II-XII grossly intact No focal sensory deficits Lymphatics: no palpable cervical or supraclavicular , or inguinal lymph nodes Results CBC & Chem 7: 11/17/17 23:34 11/17/17 23:34 Labs: Abnormal Lab Results - Last 24 Hours (Table) 11/17/17 11/17/17 11/17/17 Range/Units 23:34 23:34 23:34 WBC 11.1 H (3.8-10.6) k/uL Hct 46.4 H (34.0-46.0) % Neutrophils # 7.9 H (1.3-7.7) k/uL Carbon Dioxide 19 L (22-30) mmol/L Calcium 10.3 H (8.4-10.2) mg/dL Lipase 93598 H (23-300) U/L Urine Appearance Cloudy H (Clear) Urine Protein 2+ H (Negative) Urine Ketones 4+ H (Negative) Urine Blood Trace H (Negative) Ur Squamous Epith Cells 21 H (0-4) /hpf Urine Mucus Rare H (None) /hpf Thrombosis Risk Factor Assmnt - Choose All That Apply Any of the Below Risk Factors Present?: Yes Each Factor Represents 1 point: Obesity (BMI >25), Varicose veins Other Risk Factors: No Other congenital or acquired thrombophilia - If yes, enter type in comment: No Thrombosis Risk Factor Assessment Total Risk Factor Score: 2 Thrombosis Risk Factor Assessment Level: Low Risk Assessment and Plan Assessment: 37-year-old female with history of asthma and recurrent pancreatitis patient is admitted as inpatient with anticipated length of stay of more than 48 hours due to a new episode of acute pancreatitis associated with recurrent vomiting over the past few days, and the ED patient was found to have lipase of over 10,000. Patient denies any alcohol intake Plan: Acute pancreatitis Pain control Aggressive IV fluid hydration lactated Ringer Follow-up labs Symptoms control Nothing by mouth check c diff for reported diarrhea Asthma currently stable DuoNeb's when necessary as needed Hypothyroidism currently stable Continue levothyroxine DVT prophylaxis Heparin subcu 3 times a day CODE STATUS: Full code Discussed with: Patient, ER,RN Anticipated discharge: 48-[address]:home A total of 60 minutes was spent on the care of this complex patient more than 50 % of the time was spent in counseling and care coordination.
[2017-11-18 07:25] LABS: HCT 42.4 % (34.0-46.0); MCH 31.8 pg (25.0-35.0); MCHC 33.1 g/dL (31.0-37.0); MCV 95.9 fL (80.0-100.0); Mean Platelet Volume 6.8; Platelet Count 243 k/uL (150-450); RBC 4.42 m/uL (3.80-5.40); RDW 12.8 % (11.5-15.5); WBC 8.6 k/uL (3.8-10.6)
[2017-11-18 07:38] LABS: Anion Gap 12 mmol/L; Blood Urea Nitrogen 9 mg/dL (7-17); Calcium 8.8 mg/dL (8.4-10.2); Carbon Dioxide 19 mmol/L (22-30); Chloride 108 mmol/L (98-107); Cholesterol 171 mg/dL (<200); Glucose 82 mg/dL (74-99); HDL Cholesterol 37 mg/dL (40-60); LDL Cholesterol,Calculated 98 mg/dL (0-99); Potassium 4.2 mmol/L (3.5-5.1); Sodium 139 mmol/L (137-145); Triglycerides 181 mg/dL (<150)
[2017-11-18] MEDS ORDERED: IPRATROPIUM-ALBUTEROL 3 ML NEB INHALATION PRN (09:18)
--- NOTE | 2017-11-18 09:19 | P.PN ---
Progress Note - Text Progress Note Date: 11/18/17 Patient was seen and examined. No acute events overnight. Patient reports improvement in her abdominal pain, received Dilaudid injection 1 hour ago. Patient reports multiple episodes of pancreatitis in the past. She did get a cholecystectomy and July 2016. Since then she has had 2 episodes of pancreatitis. Patient reports drinking 1-2 glasses of wine daily. She reports nausea but no vomiting. She is nothing by mouth. AOx3 Heart is regular rate and rhythm. Normal S1-S2. Lungs are clear to auscultation bilaterally. Abdomen soft with positive bowel sounds. There is tenderness to palpation of the right upper and left upper quadrant. There is no rebound tenderness. There is no hepatomegaly. There is no lower extremity edema. Assessment and Plan 1. Pancreatitis: Lipase 75723. Lipid panel shows T. Chol 171, TG of 181. Patient is afebrile with a mild leukocytosis of 11.1 on 11/17 which resolved this morning. CT AP in 10/2017 shows mild pancreatitis with some calcifications in the head with no duct dilatation. Pain control with Dilaudid IV 0.5 mg IV Q1H. Continue LR 150 cc/h. Zofrain IV PRN for N/V. NPO and advance diet as tolerated. FU RUQ US, C. difficile, Lipase 2. Asthma: Stable. DuoNeb PRN. 3. Hypothryoidism: Stable. Synthroid 50 mcg PO QD. 4. DVT/GI Prophylaxis: SCD boots. Protonix 40 mg IV QD.
--- NOTE | 2017-11-18 10:55 | US ---
EXAMINATION TYPE: US liver DATE OF EXAM: 11/18/2017 COMPARISON: NONE CLINICAL HISTORY: Pancreatitis. EXAM MEASUREMENTS: Liver Length: 14.0 cm Gallbladder Wall: Surgically absent CBD: 0.5 cm Right Kidney: 10.0 x 4.3 x 4.8 cm Pancreas: not well visualized due to overlying bowel gas, duct measures 0.4cm Liver: wnl Gallbladder: Surgically absent Evidence for sonographic Aguayo's sign: no CBD: wnl Right Kidney: wnl Limited views of the pancreas demonstrate a dilated pancreatic duct measuring 4.2 mm. The liver is normal in size without evidence of biliary dilatation. The gallbladder is been removed. Distal common hepatic duct measures 5 mm. There is no sonographic Mu rphy's sign. The right kidney is normal. IMPRESSION: 1. MILD PROMINENCE OF THE PANCREATIC DUCT. 2. NO EVIDENCE OF PSEUDOCYST AT THIS TIME.
[2017-11-19] MEDS: HYDROmorphone 1 MG/ML 1 ML SYRINGE IVP PRN ×11 (01:16→22:31)
[2017-11-19] MEDS: ONDANSETRON ODT 4 MG TAB PO PRN (02:48)
[2017-11-19] MEDS ORDERED: HYDROmorphone 1 MG/ML 1 ML SYRINGE IVP STA (02:56)
[2017-11-19] MEDS ORDERED: MELATONIN 3 MG TABLET PO ONE (03:30)
[2017-11-19] MEDS: LACTATED RINGERS 1,000 ML IV SCH ×4 (04:43→20:44)
[2017-11-19] MEDS: LEVOTHYROXINE 50 MCG TAB PO SCH (06:24)
[2017-11-19] MEDS: PANTOPRAZOLE 40 MG/10 ML VIAL IVP SCH (08:42)
--- NOTE | 2017-11-19 08:57 | P.PN ---
Subjective Progress Note Date: 11/19/17 Principal diagnosis: Acute pancreatitis Patient is doing fairly well today. She informs me that her pain is a lot better compared to yesterday. She is rating her pain as 4-5 out of 10 in severity. She said that she is feeling hungry. Nursing staff informed me that patient has been getting IV Dilaudid 1 mg every 1 hour around the clock. There was no acute events overnight reported by nursing staff. Repeat lab work from this morning is still pending. Objective - Vital Signs Vital signs: Vital Signs Temp 98.4 F 11/18/17 23:00 Pulse 73 11/18/17 23:00 Resp 18 11/18/17 23:00 BP 145/60 11/18/17 23:00 Pulse Ox 99 11/18/17 23:00 Intake & Output 11/18/17 11/19/17 11/19/17 18:59 06:59 18:59 Intake Total 0 Balance 0 Intake: Oral 0 Other: # Voids 2 1 - Exam General: The patient is awake and alert, in no distress Eye: there is normal conjunctiva bilaterally. Neck: The neck is supple, there is no JVD. Cardiovascular: Normal S1-S2, no S3-S4, no murmurs. Respiratory: Lungs clear to auscultation bilaterally Gastrointestinal: Abdomen is soft, there is mild tenderness to palpation in the upper abdomen worse in the epigastric area Musculoskeletal: There is no pedal edema. Neurological:. Speech is normal. Skin: Skin is warm and dry - Labs CBC & Chem 7: 11/18/17 07:07 11/18/17 07:07 Assessment and Plan Assessment: 1. Pancreatitis: Lipase 13668 on presentation awaiting repeat today. CT AP in shows mild pancreatitis with some calcifications in the head with no duct dilatation. Ultrasound during this admission showed no evidence of pseudocyst. There is mild dilation of the pancreatic duct. Patient was treated with aggressive IV fluid hydration, pain control, and antiemetics. GI consulted awaiting evaluation. Patient has been nothing by mouth since admission. 2. Asthma: Stable. DuoNeb PRN. 3. Hypothryoidism: Stable. Synthroid 50 mcg PO QD. 4. DVT/GI Prophylaxis: Subcu heparin. Protonix 40 mg IV QD. Today, I reviewed her medication list and lab work results. Urinalysis is contaminated with no evidence of UTI. I discussed with the patient changing her pain medication frequency to every 3 hours. Start liquid diet and advance as tolerated. Await lab work from this morning. Encouraged ambulation. Overall improvement in clinical condition.
--- NOTE | 2017-11-19 09:38 | P.CONS ---
History of Present Illness - Reason for Consult Consult date: 11/19/17 pancreatitis Requesting physician: Vikki Vasquez - Chief Complaint abdominal pain - History of Present Illness 37-year-old female patient of Dr. Israel with a past medical history of pancreatitis dates back to 2014, remote alcohol consumption, acalculous cholecystectomy 2016, anxiety, asthma, and hypothyroidism. Patient presents with acute abdominal pain upper abdomen back 1 day with nausea vomiting without fever chills hematemesis medical easy melena. Pancreatic enzymes elevated lipase 10,465. LFTs within normal limits. Patient had a previous attack of pancreatitis last month lipase is 330. Previous tach prior to that was about a year ago. Patient used to drink on a daily basis at night a few mixed drinks to help with sleep for a few years. She now drinks socially last alcoholic drink was a glass of wine 2 weeks ago. She's been told in the past or pancreatitis most likely related to alcohol consumption. No history of known autoimmune disorders. Triglycerides 181. Abdominal ultrasound CBD 0.5 cm. Liver within normal limits. Pancreas not visualized. Pancreatic duct 0.[address] last month reported multiple calcifications within the head of the pancreas with subtle inflammatory changes adjacent to the uncinate process. Review of Systems Constitutional: Denies fever, chills, sweats, weight gain, or loss. HEENT: Negative for migraines, blurred vision or loss, earaches, drainage, tinnitus, oral mucosal lesions, dysphagia, or odynophagia. CARDIAC: Negative for chest pain, arrhythmias, or palpitation. RESPIRATORY: Negative for shortness of breath, hemoptysis, cough, or sputum production. GI: See HPI for pertinent findings. : Negative for hematuria, urgency, frequency, polyuria, or dysuria. GYNc: Denies possibility of . Negative vaginal discharge. MUSCULOSKELETAL: Negative for muscle aches, swelling, arthritis, and arthralgias. NEUROLOGIC: Negative for stroke or TIA. ENDOCRINE: Negative for thyroid problems. SKIN: Negative for rash or itching. PSYCHIATRIC: History of anxiety. Past Medical History Past Medical History: Asthma, Thyroid Disorder Additional Past Medical History / Comment(s): Other HX: pancreatitis, hypokalemia, hypothyroidism,anemia, vit D deficiency History of Any Multi-Drug Resistant Organisms: None Reported Past Surgical History: Section, Cholecystectomy, Orthopedic Surgery Additional Past Surgical History / Comment(s): R foot injury-Sx repair,c-sect x 2 Past Anesthesia/Blood Transfusion Reactions: No Reported Reaction Additional Past Anesthesia/Blood Transfusion Reaction / Comm: Pt states she has never recieved blood,took awhile to come out of anesthesia with foot surg. Past Psychological History: ADD/ADHD, Anxiety Additional Psychological History / Comment(s): Pt resides with her spouse and children. She is independent. She drives. Homemaker Smoking Status: Current every day smoker Past Alcohol Use History: Occasional Additional Past Alcohol Use History / Comment(s): Pt states she started smoking at age 17yrs and is alittle less than a ppd smoker. Pt states she drinks less than 7 drinks per week. Past Drug Use History: Marijuana Additional Drug Use History / Comment(s): Pt smokes marijuana occasionally. - Past Family History Father Family Medical History: Congestive Heart Failure (CHF) Additional Family Medical History / Comment(s): Father has a pacer. Mother Family Medical History: Cancer Additional Family Medical History / Comment(s): Mother had uterine cancer. She is 59 yrs old. Medications and Allergies Home Medications Medication Instructions Recorded Confirmed Type Cholecalciferol (Vitamin D3) 2,000 unit PO DAILY 10/12/17 11/18/17 History [Vitamin D3] Ferrous Sulfate [Feosol] 325 mg PO DAILY 10/12/17 11/18/17 History Albuterol Inhaler [Ventolin Hfa 1 - 2 puff INHALATION RT-Q6H PRN 11/18/17 History Inhaler] Levothyroxine Sodium [Synthroid] 75 mcg PO DAILY 11/18/17 11/18/17 History Allergies Allergy/AdvReac Type Severity Reaction Status Date / Time venom-honey bee Allergy Intermediate Swelling Verified 11/18/17 10:57 [bee venom (honey bee)] increasingly worse with each sting Physical Exam Vitals: Vital Signs Temp Pulse Resp BP Pulse Ox 11/19/17 08:30 18 11/18/17 23:00 98.4 F 73 18 145/60 99 11/18/17 20:00 98.2 F 80 18 134/65 99 11/18/17 14:08 98.2 F 69 19 129/70 99 Intake and Output 11/18/17 11/19/17 11/19/17 22:59 06:59 14:59 Intake Total 0 0 Balance 0 0 Intake: Oral 0 0 Other: # Voids 1 1 General appearance: The patient is alert, oriented, in no acute distress. HET: Head is normocephalic and atraumatic. Pupils are equal and reactive. Oropharynx is clear without lesions. Neck: Supple without lymphadenopathy. Trachea midline. Heart: S1 S2. Regular rate and rhythm. Lungs: No crackles or wheezes are heard. Abdomen: Soft, mild midepigastric tenderness, nondistended with bowel sounds. No peritoneal signs. No palpable organomegaly or masses. Extremities: Normal skin color and turgor. No cyanosis, rash, ulceration, clubbing, or edema. Radial and pedal pulses are 2/4 bilaterally. Neurological: No focal deficits. Strength and sensation are grossly intact. Results CBC & Chem 7: 11/18/17 07:07 11/19/17 10:02 US - abdomen: report reviewed (Dr. Mars) Assessment and Plan (1) Acute pancreatitis Narrative/Plan: 37-year-old female admitted with acute pancreatitis with a history of pancreatitis and remote alcohol consumption acalculous cholecystectomy 2016. Possible alcohol related autoimmune cannot be entirely excluded. Current Visit: No Status: Acute Code(s): K85.9 - ACUTE PANCREATITIS, UNSPECIFIED * DO NOT USE * SNOMED Code(s): 557119632 Plan: 1. Abdominal pain is improving. Morning chemistries are pending. We'll start clear liquids and observe. JIMY screen IgG subclass 1-4 rule out autoimmune disease. We'll follow closely with you. Continue with IV hydration 125 mL an hour. Thank you for this kind referral and the opportunity to participate in the care of your patient. This consultation was discussed with Dr. Jones. The impression and plan of care have been directed as dictated.
[2017-11-19] MEDS: HEPARIN SODIUM,PORCINE 5,000 UNIT/ML 1 ML VIAL SQ SCH ×2 (10:21→20:44)
[2017-11-19 10:44] LABS: ALT 25 U/L (9-52); AST 22 U/L (14-36); Albumin 3.4 g/dL (3.5-5.0); Alkaline Phosphatase 56 U/L (38-126); Anion Gap 10 mmol/L; Blood Urea Nitrogen 5 mg/dL (7-17); Carbon Dioxide 25 mmol/L (22-30); Chloride 104 mmol/L (98-107); Glucose 70 mg/dL (74-99); Sodium 139 mmol/L (137-145); Total Bilirubin 0.6 mg/dL (0.2-1.3)
[2017-11-19 11:44] LABS: Lipase 4946 U/L (23-300)
[2017-11-19] MEDS: MELATONIN 3 MG TABLET PO SCH (20:44)
[2017-11-20] MEDS: HYDROmorphone 1 MG/ML 1 ML SYRINGE IVP PRN ×8 (01:21→23:08)
[2017-11-20] MEDS: LACTATED RINGERS 1,000 ML IV SCH ×3 (05:37→23:10)
[2017-11-20] MEDS: LEVOTHYROXINE 50 MCG TAB PO SCH (06:49)
[2017-11-20] MEDS: PANTOPRAZOLE 40 MG/10 ML VIAL IVP SCH (07:59)
[2017-11-20] MEDS: HEPARIN SODIUM,PORCINE 5,000 UNIT/ML 1 ML VIAL SQ SCH ×2 (07:59→20:04)
--- NOTE | 2017-11-20 08:22 | P.DS ---
Providers Date of admission: 11/18/17 01:06 Expected date of discharge: 11/20/17 Attending physician: Vikki Vasquez MD Consults: 11/18/17 11:10 Consult Physician Urgent Consulting Provider: Harmony Mars Consult Reason/Comments: Pancreatitis, dilated pancreatic duct Do you want consulting provider notified?: Yes Primary care physician: Clementina Israel MD Hospital Course: 1. Pancreatitis: Lipase 19944 on presentation trending down on follow-up lab work. CT AP in 10/2017 shows mild pancreatitis with some calcifications in the head with no duct dilatation. Ultrasound during this admission showed no evidence of pseudocyst. There is mild dilation of the pancreatic duct. Patient was treated with aggressive IV fluid hydration, pain control, and antiemetics. GI consulted and workup to rule out autoimmune pancreatitis in process. Triglyceride level within acceptable range. Patient improved significantly throughout her hospital stay. Diet was advanced as tolerated. 2. Asthma: Stable. DuoNeb PRN. 3. Hypothryoidism: Stable. Synthroid 50 mcg PO QD. Patient will be discharged home in a stable condition. She will follow-up with her PCP and GI as directed. She'll be given prescription for tramadol for pain control as needed. She was advised to avoid alcohol. Patient Condition at Discharge: Good Plan - Discharge Summary Discharge Rx Participant: No New Discharge Prescriptions: New traMADol HCL [Ultram] 50 mg PO Q6HR PRN 3 Days #12 tab PRN Reason: Pain Continue Ferrous Sulfate [Iron (65 MG Elemental)] 325 mg PO DAILY Cholecalciferol (Vitamin D3) [Vitamin D3] 2,000 unit PO DAILY Albuterol Inhaler [Ventolin Hfa Inhaler] 1 - 2 puff INHALATION RT-Q6H PRN PRN Reason: Shortness Of Breath Or Wheezing Levothyroxine Sodium [Synthroid] 75 mcg PO DAILY Discharge Medication List Cholecalciferol (Vitamin D3) [Vitamin D3] 2,000 unit PO DAILY 10/12/17 [History] Ferrous Sulfate [Iron (65 MG Elemental)] 325 mg PO DAILY 10/12/17 [History] Albuterol Inhaler [Ventolin Hfa Inhaler] 1 - 2 puff INHALATION RT-Q6H PRN [History] Levothyroxine Sodium [Synthroid] 75 mcg PO DAILY 11/18/17 [History] traMADol HCL [Ultram] 50 mg PO Q6HR PRN 3 Days #12 tab 11/20/17 [Rx] Follow up Appointment(s)/Referral(s): Clementina Israel MD [Primary Care Provider] - 3 Days Harmony Mars MD [STAFF PHYSICIAN] - 1 Week Discharge Disposition: HOME SELF-CARE
--- NOTE | 2017-11-20 09:14 | P.PN ---
Subjective Progress Note Date: 11/20/17 Principal diagnosis: pancreatitis Increased abdominal pain after eating regular breakfast; crying. Morning chemistries pending. Afebrile. Objective - Vital Signs Vital signs: Vital Signs Temp 98.3 F 11/20/17 01:22 Pulse 79 11/20/17 01:22 Resp 18 11/20/17 01:22 BP 151/89 11/20/17 01:22 Pulse Ox 97 11/20/17 01:22 Intake & Output 11/19/17 11/20/17 11/20/17 18:59 06:59 18:59 Intake Total 240 Balance 240 Intake: Oral 240 Other: # Voids 1 1 - Constitutional General appearance: Present: obese - EENT Eyes: Present: normal appearance ENT: Present: normal oropharynx Ears: bilateral: normal - Neck Neck: Present: normal ROM - Respiratory Respiratory: bilateral: CTA - Cardiovascular Rhythm: regular Heart sounds: normal: S1, S2 - Gastrointestinal General gastrointestinal: Present: soft Localized gastrointestinal: tender: LUQ - Integumentary Integumentary: Present: normal turgor - Neurologic Neurologic: Present: CNII-XII intact - Musculoskeletal Musculoskeletal: Present: gait normal - Psychiatric Psychiatric: Present: A&O x's 3, appropriate affect, intact judgment & insight - Labs CBC & Chem 7: 11/18/17 07:07 11/19/17 10:02 Labs: Abnormal Lab Results - Last 24 Hours (Table) 11/19/17 Range/Units 10:02 BUN 5 L (7-17) mg/dL Glucose 70 L (74-99) mg/dL Total Protein 6.0 L (6.3-8.2) g/dL Albumin 3.4 L (3.5-5.0) g/dL Lipase 4946 H (23-300) U/L Assessment and Plan (1) Acute pancreatitis Narrative/Plan: 37-year-old female admitted with acute pancreatitis with a history of pancreatitis and remote alcohol consumption acalculous cholecystectomy 2017. Possible alcohol related autoimmune cannot be entirely excluded. Current Visit: No Status: Acute Code(s): K85.9 - ACUTE PANCREATITIS, UNSPECIFIED * DO NOT USE * SNOMED Code(s): 798063690 Plan: 1. Abdominal pain worsened w/meal this morning will decrease to liquid diet. JIMY negative. Morning chemistries are pending. Outpatient EUS discussed. RTO 1 -2 weeks. We'll follow closely with you. Toradol 30 mg IV every 6 hours as needed. Continue with IV hydration 125 mL an hour. Assessment and plan of care discussed with Dr. Jones
[2017-11-20] MEDS: KETOROLAC 30 MG/ML 1 ML VIAL IVP PRN ×2 (09:21→16:12)
[2017-11-20] MEDS: ONDANSETRON ODT 4 MG TAB PO PRN (09:22)
[2017-11-20 10:14] LABS: Basophils % (A) 1 %; Eosinophils # (A) 0.5 k/uL (0-0.7); Eosinophils % (A) 9 %; HCT 40.5 % (34.0-46.0); HGB 13.9 gm/dL (11.4-16.0); Lymphocytes # (A) 1.5 k/uL (1.0-4.8); Lymphocytes % (A) 26 %; MCH 32.8 pg (25.0-35.0); MCHC 34.3 g/dL (31.0-37.0); MCV 95.7 fL (80.0-100.0); Monocytes # (A) 0.3 k/uL (0-1.0); Monocytes % (A) 5 %; Neutrophils # (A) 3.3 k/uL (1.3-7.7); Neutrophils % (A) 56 %; Platelet Count 234 k/uL (150-450); RBC 4.23 m/uL (3.80-5.40); RDW 12.5 % (11.5-15.5); WBC 5.9 k/uL (3.8-10.6)
[2017-11-20 10:47] LABS: ALT 33 U/L (9-52); AST 22 U/L (14-36); Albumin 3.7 g/dL (3.5-5.0); Alkaline Phosphatase 57 U/L (38-126); Anion Gap 11 mmol/L; Blood Urea Nitrogen 3 mg/dL (7-17); Calcium 9.4 mg/dL (8.4-10.2); Carbon Dioxide 25 mmol/L (22-30); Chloride 102 mmol/L (98-107); Potassium 3.4 mmol/L (3.5-5.1); Sodium 138 mmol/L (137-145); Total Bilirubin 0.5 mg/dL (0.2-1.3); Total Protein 6.3 g/dL (6.3-8.2)
[2017-11-20 10:54] LABS: Glucose 118 mg/dL (74-99)
[2017-11-20 11:29] LABS: IgG Subclass 3 50.6 mg/dL (11.0-85.0); IgG Subclass 4 37.2 mg/dL (3.0-175.0)
[2017-11-20 12:26] LABS: Lipase 4544 U/L (23-300)
[2017-11-20] MEDS ORDERED: HYDROmorphone 1 MG/ML 1 ML SYRINGE IVP PRN (15:45)
[2017-11-20] MEDS: MELATONIN 3 MG TABLET PO SCH (20:04)
[2017-11-21] MEDS: KETOROLAC 30 MG/ML 1 ML VIAL IVP PRN ×2 (02:10→08:23)
[2017-11-21] MEDS: HYDROmorphone 1 MG/ML 1 ML SYRINGE IVP PRN ×2 (02:11→05:23)
[2017-11-21] MEDS: LEVOTHYROXINE 50 MCG TAB PO SCH (06:12)
[2017-11-21] MEDS: LACTATED RINGERS 1,000 ML IV SCH (06:12)
[2017-11-21] MEDS ORDERED: HYDROmorphone 1 MG/ML 1 ML SYRINGE IVP PRN (07:10)
[2017-11-21] MEDS ORDERED: POTASSIUM CHLORIDE ER 20 MEQ TAB.ER PO STA (07:10)
[2017-11-21] MEDS: PANTOPRAZOLE 40 MG/10 ML VIAL IVP SCH (08:22)
[2017-11-21 08:23] LABS: Basophils % (A) 1 %; Eosinophils # (A) 0.5 k/uL (0-0.7); Eosinophils % (A) 9 %; HGB 13.6 gm/dL (11.4-16.0); Lymphocytes # (A) 1.6 k/uL (1.0-4.8); Lymphocytes % (A) 29 %; MCH 32.2 pg (25.0-35.0); MCHC 33.9 g/dL (31.0-37.0); Mean Platelet Volume 6.9; Monocytes # (A) 0.3 k/uL (0-1.0); Monocytes % (A) 6 %; Neutrophils # (A) 2.9 k/uL (1.3-7.7); Neutrophils % (A) 52 %; Platelet Count 264 k/uL (150-450); RBC 4.22 m/uL (3.80-5.40); RDW 12.5 % (11.5-15.5); WBC 5.7 k/uL (3.8-10.6)
[2017-11-21] MEDS: HEPARIN SODIUM,PORCINE 5,000 UNIT/ML 1 ML VIAL SQ SCH (08:23)
[2017-11-21 08:35] VITALS: RESP 20
[2017-11-21 08:54] LABS: ALT 26 U/L (9-52); AST 22 U/L (14-36); Albumin 3.5 g/dL (3.5-5.0); Alkaline Phosphatase 43 U/L (38-126); Anion Gap 12 mmol/L; Blood Urea Nitrogen 3 mg/dL (7-17); Calcium 8.9 mg/dL (8.4-10.2); Carbon Dioxide 27 mmol/L (22-30); Chloride 101 mmol/L (98-107); Glucose 87 mg/dL (74-99); Potassium 3.4 mmol/L (3.5-5.1); Sodium 140 mmol/L (137-145); Total Bilirubin 0.5 mg/dL (0.2-1.3); Total Protein 5.9 g/dL (6.3-8.2)
[2017-11-21 09:08] LABS: Lipase 3979 U/L (23-300)
--- NOTE | 2017-11-21 09:24 | P.PN ---
Subjective Principal diagnosis: Acute pancreatitis Patient is doing well today. She was not discharged yesterday as she was complaining of worsening abdominal pain. She appears very comfortable to me. She was talking to me comfortably and laughing at times. That was similar to yesterday. She is still requesting IV Dilaudid around the clock. She was frustrated this morning when her nurse informed her that her IV Dilaudid was changed to every 6 hours. Objective - Vital Signs Vital signs: Vital Signs Temp 98.2 F 11/21/17 08:18 Pulse 67 11/21/17 08:18 Resp 20 11/21/17 08:18 BP 133/89 11/21/17 08:18 Pulse Ox 96 11/21/17 08:18 Intake & Output 11/20/17 11/21/17 11/21/17 18:59 06:59 18:59 Other: # Voids 2 - Exam General: The patient is awake and alert, in no distress Eye: there is normal conjunctiva bilaterally. Neck: The neck is supple, there is no JVD. Cardiovascular: Normal S1-S2, no S3-S4, no murmurs. Respiratory: Lungs clear to auscultation bilaterally Gastrointestinal: Abdomen is soft, there is mild tenderness to palpation in the upper abdomen worse in the epigastric area Musculoskeletal: There is no pedal edema. Neurological:. Speech is normal. Skin: Skin is warm and dry - Labs CBC & Chem 7: 11/21/17 08:00 11/21/17 08:00 Labs: Abnormal Lab Results - Last 24 Hours (Table) 11/19/17 11/20/17 11/21/17 Range/Units 10:02 09:51 08:00 Potassium 3.4 L 3.4 L (3.5-5.1) mmol/L BUN 3 L 3 L (7-17) mg/dL Glucose 118 H (74-99) mg/dL Total Protein 5.9 L (6.3-8.2) g/dL Lipase 4544 H 3979 H (23-300) U/L IgG1 395.0 L (405.0-1011.0) mg/dL Assessment and Plan Assessment: 1. Pancreatitis: Lipase 05429 on presentation and now trending down. CT AP in shows mild pancreatitis with some calcifications in the head with no duct dilatation. Ultrasound during this admission showed no evidence of pseudocyst. There is mild dilation of the pancreatic duct. Patient was treated with aggressive IV fluid hydration, pain control, and antiemetics. GI consulted appreciate his recommendations. Workup for autoimmune pancreatitis in process. Triglycerides within normal range. 2. Asthma: Stable. DuoNeb PRN. 3. Hypothryoidism: Stable. Synthroid 50 mcg PO QD. 4. DVT/GI Prophylaxis: Subcu heparin. Protonix 40 mg IV QD. Awaiting GI clearance for discharge
--- NOTE | 2017-11-21 11:20 | P.PN ---
Subjective Progress Note Date: 11/21/17 Principal diagnosis: pancreatitis Abdominal pain improved from yesterday but still present. White count 5.7. Hemoglobin 13.6. LFTs within normal limits. JIMY screen negative. IgG subclass 1-4 unremarkable. Lipase 3979 improved from 4544 yesterday. Afebrile. Tolerating liquid diet. Objective - Vital Signs Vital signs: Vital Signs Temp 98.2 F 11/21/17 08:18 Pulse 67 11/21/17 08:18 Resp 20 11/21/17 08:18 BP 133/89 11/21/17 08:18 Pulse Ox 96 11/21/17 08:18 Intake & Output 11/20/17 11/21/17 11/21/17 18:59 06:59 18:59 Other: # Voids 2 - Exam General appearance: The patient is alert, oriented, in no acute distress. HET: Head is normocephalic and atraumatic. Pupils are equal and reactive. Oropharynx is clear without lesions. Neck: Supple without lymphadenopathy. Trachea midline. Heart: S1 S2. Regular rate and rhythm. Lungs: No crackles or wheezes are heard. Abdomen: Soft, mild midepigastric left upper quadrant tenderness, nondistended with bowel sounds. No peritoneal signs. No palpable organomegaly or masses. Extremities: Normal skin color and turgor. No cyanosis, rash, ulceration, clubbing, or edema. Radial and pedal pulses are 2/4 bilaterally. Neurological: No focal deficits. Strength and sensation are grossly intact. - Labs CBC & Chem 7: 11/21/17 08:00 11/21/17 08:00 Labs: Abnormal Lab Results - Last 24 Hours (Table) 11/19/17 11/20/17 11/21/17 Range/Units 10:02 09:51 08:00 Potassium 3.4 L (3.5-5.1) mmol/L BUN 3 L (7-17) mg/dL Glucose 118 H (74-99) mg/dL Total Protein 5.9 L (6.3-8.2) g/dL Lipase 4544 H 3979 H (23-300) U/L IgG1 395.0 L (405.0-1011.0) mg/dL Assessment and Plan (1) Acute pancreatitis Narrative/Plan: 37-year-old female admitted with acute pancreatitis with a history of pancreatitis and remote alcohol consumption acalculous cholecystectomy 2017. Possible alcohol. Autoimmune workup so far unremarkable. Current Visit: No Status: Acute Code(s): K85.9 - ACUTE PANCREATITIS, UNSPECIFIED * DO NOT USE * SNOMED Code(s): 194983434 Plan: 1. Agreeable for discharge if patient tolerates diet. Advise repeat chemistries in the outpatient setting in 3-5 days. Return to office in 7-10 days. Patient was advised to return to the hospital with worsening abdominal pain new-onset of fever chills nausea vomiting or abdominal bloatedness. Low fat diet. He should verbalized understanding of instructions. She is requesting discharge later today. Follow with PCP 7-10 days after discharge. Assessment and plan a care discussed with Dr. Jones
[2017-11-21 12:36] VITALS: BP 116/82; PULSE 73; TEMP 98.1
== END 2017-11-21 14:28 | disposition home or self-care (01) | DRG 440 ==
LOC: EC 23:13 → 6PED 11-18 01:06
PROVIDERS: ADMIT Internal Medicine; ATTEND Internal Medicine
DX: K85.90 Acute pancreatitis without necrosis or infection, unspecified (principal); K86.1 Other chronic pancreatitis; E03.9 Hypothyroidism, unspecified; F17.210 Nicotine dependence, cigarettes, uncomplicated; F41.9 Anxiety disorder, unspecified; F90.9 Attention-deficit hyperactivity disorder, unspecified type; J45.909 Unspecified asthma, uncomplicated; Z80.49 Family history of malignant neoplasm of other genital organs; Z82.49 Family history of ischemic heart disease and other diseases of the circulatory system; Z79.890 Hormone replacement therapy; Z79.899 Other long term (current) drug therapy; Z91.030 Bee allergy status; E55.9 Vitamin D deficiency, unspecified
CPT/HCPCS: 36415; 76705; 80048; 80053; 80061; 81001; 81025; 82787; 83690; 85025; 85027; 86038; 96361; 96374; 96375; 99285

== ENCOUNTER → 2017-11-24 | Outpatient (CLI) | payer BC ==
[2017-11-24 12:09] LABS: Amylase 208 U/L (30-110)
[2017-11-24 12:36] LABS: Lipase 2073 U/L (23-300)
== END ==
LOC: LABWHC1 10:43
PROVIDERS: ATTEND Nurse Practitioner
DX: K85.90 Acute pancreatitis without necrosis or infection, unspecified (principal)
CPT/HCPCS: 36415; 82150; 83690

== ENCOUNTER 2018-04-03 12:47 | Emergency (ER) | payer BC ==
[2018-04-03 12:55] VITALS: TEMP 98.4
[2018-04-03] MEDS ORDERED: IPRATROPIUM-ALBUTEROL 3 ML NEB INHALATION STA ×2 (13:34→13:35)
[2018-04-03] MEDS ORDERED: methylPREDNISolone SOD SUCCI 125 MG/2 ML VIAL IV STA (13:35)
[2018-04-03] MEDS ORDERED: SODIUM CHLORIDE 0.9% 1,000 ML IV STA ×2 (13:35)
--- NOTE | 2018-04-03 14:10 | ED ---
SOB HPI - General Chief Complaint: Shortness of Breath Stated Complaint: GEOFFREY-Dr sent Time Seen by Provider: 04/03/18 13:06 Source: patient, RN notes reviewed, old records reviewed Mode of arrival: ambulatory Limitations: no limitations - History of Present Illness Initial Comments: Patient is a 37-year-old female presents resort today with shortness of breath. She reports she's had progressive shortness breath for the past 2 months. She states is worse over the past 2 weeks. Patient states that she was seen by medics wrist are not steroids and antibiotic prescription she has 5 days left of Augmentin. Patient reports she is a smoker. She is nursing a technical sales director. - Related Data Home Medications Medication Instructions Recorded Confirmed Cholecalciferol (Vitamin D3) 2,000 unit PO DAILY 10/12/17 04/03/18 [Vitamin D3] Ferrous Sulfate [Iron (65 MG 325 mg PO DAILY 10/12/17 04/03/18 Elemental)] Levothyroxine Sodium [Synthroid] 75 mcg PO DAILY 11/18/17 04/03/18 Albuterol Nebulized (Conc) 2.5 mg INHALATION RT-Q4H 04/03/18 04/03/18 [Ventolin Nebulized (Conc)] Albuterol Sulfate [Proair Hfa] 2 puff INHALATION RT-Q4H 04/03/18 04/03/18 Amoxic-Pot Clav 500-125 mg 1 tab PO TID 04/03/18 04/03/18 [Augmentin 500-125 mg] Montelukast [Singulair] 10 mg PO DAILY 04/03/18 04/03/18 Previous Rx's Medication Instructions Recorded Ipratropium-Albuterol Nebulize 3 ml INHALATION TID #30 neb 04/03/18 [Duoneb 0.5 mg-3 mg/3 ml Soln] predniSONE 50 mg PO DAILY #5 tablet 04/03/18 Allergies Allergy/AdvReac Type Severity Reaction Status Date / Time venom-honey bee Allergy Intermediate Swelling Verified 04/03/18 12:55 [bee venom (honey bee)] increasingly worse with each sting Review of Systems ROS Statement: Those systems with pertinent positive or pertinent negative responses have been documented in the HPI. ROS Other: All systems not noted in ROS Statement are negative. Past Medical History Past Medical History: Asthma, Thyroid Disorder Additional Past Medical History / Comment(s): Other HX: pancreatitis, hypokalemia, hypothyroidism,anemia, vit D deficiency History of Any Multi-Drug Resistant Organisms: None Reported Past Surgical History: Section, Cholecystectomy, Orthopedic Surgery Additional Past Surgical History / Comment(s): R foot injury-Sx repair,c-sect x 2 Past Anesthesia/Blood Transfusion Reactions: No Reported Reaction Additional Past Anesthesia/Blood Transfusion Reaction / Comment(s): Pt states she has never recieved blood,took awhile to come out of anesthesia with foot surg. Past Psychological History: ADD/ADHD, Anxiety Smoking Status: Current every day smoker Past Alcohol Use History: Occasional Past Drug Use History: Marijuana - Past Family History Father Family Medical History: Congestive Heart Failure (CHF) Additional Family Medical History / Comment(s): Father has a pacer. Mother Family Medical History: Cancer Additional Family Medical History / Comment(s): Mother had uterine cancer. She is 59 yrs old. General Exam - General Exam Comments Initial Comments: 37-year-old male. Alert and oriented. No distress. Limitations: no limitations General appearance: alert, in no apparent distress Head exam: Present: atraumatic, normocephalic, normal inspection Eye exam: Present: normal appearance, PERRL, EOMI. Absent: scleral icterus, conjunctival injection, periorbital swelling ENT exam: Present: normal exam, mucous membranes moist Neck exam: Present: normal inspection. Absent: tenderness, meningismus, lymphadenopathy Respiratory exam: Present: wheezes, decreased breath sounds. Absent: normal lung sounds bilaterally, respiratory distress, rales, rhonchi, stridor Cardiovascular Exam: Present: regular rate, normal rhythm, normal heart sounds. Absent: systolic murmur, diastolic murmur, rubs, gallop, clicks GI/Abdominal exam: Present: soft, normal bowel sounds. Absent: distended, tenderness, guarding, rebound, rigid Extremities exam: Present: normal inspection, full ROM, normal capillary refill. Absent: tenderness, pedal edema, joint swelling, calf tenderness Back exam: Present: normal inspection, full ROM Neurological exam: Present: alert, oriented X3, CN II-XII intact Psychiatric exam: Present: normal affect, normal mood Skin exam: Present: warm, dry, intact, normal color. Absent: rash Course Vital Signs 04/03/18 04/03/18 04/03/18 12:52 13:29 13:30 Temperature 98.4 F Pulse Rate 105 H 105 H Respiratory 20 16 18 Rate Blood Pressure 129/86 120/91 O2 Sat by Pulse 95 96 Oximetry 04/03/18 04/03/18 04/03/18 13:47 14:04 16:51 Temperature Pulse Rate 86 100 66 Respiratory 16 Rate Blood Pressure 137/95 O2 Sat by Pulse 96 Oximetry Medical Decision Making - Medical Decision Making 37-year-old female presents emergency department today with complaints of shortness of breath. His been progressive over the past 2 months. She reports today with significant wheezing. She is have a smoker. She was given a double DuoNeb treatment and IV Solu-Medrol. Lab work including d-dimer and troponin was negative. EKG is normal. Chest x-rays negative for any acute process. She is currently on Augmentin out patiently for bronchitis treatment. At this time Patient has normal vital signs. Pulse ox 100% on room air. She continues to have some wheezing. Discussed the Patient could follow up patiently with her PCP and referral for pulmonology. Patient will be discharged at this time with increased steroids and repeat breathing treatments at home. - Lab Data Result diagrams: 04/03/18 14:30 04/03/18 14:30 Lab Results 04/03/18 04/03/18 04/03/18 Range/Units 14:30 14:30 14:30 WBC 7.2 (3.8-10.6) k/uL RBC 4.55 (3.80-5.40) m/uL Hgb 14.6 (11.4-16.0) gm/dL Hct 42.6 (34.0-46.0) % MCV 93.7 (80.0-100.0) fL MCH 32.1 (25.0-35.0) pg MCHC 34.3 (31.0-37.0) g/dL RDW 13.5 (11.5-15.5) % Plt Count 230 (150-450) k/uL Neutrophils % 59 % Lymphocytes % 31 % Monocytes % 6 % Eosinophils % 1 % Basophils % 1 % Neutrophils # 4.3 (1.3-7.7) k/uL Lymphocytes # 2.2 (1.0-4.8) k/uL Monocytes # 0.4 (0-1.0) k/uL Eosinophils # 0.1 (0-0.7) k/uL Basophils # 0.0 (0-0.2) k/uL PT 9.9 (9.0-12.0) sec INR 0.9 (<1.2) APTT 25.7 (22.0-30.0) sec D-Dimer 0.34 (<0.60) mg/L FEU Sodium 141 (137-145) mmol/L Potassium 3.2 L (3.5-5.1) mmol/L Chloride 107 (98-107) mmol/L Carbon Dioxide 24 (22-30) mmol/L Anion Gap 10 mmol/L BUN 15 (7-17) mg/dL Creatinine 0.69 (0.52-1.04) mg/dL Est GFR (CKD-EPI)AfAm >90 (>60 ml/min/1.73 sqM) Est GFR (CKD-EPI)NonAf >90 (>60 ml/min/1.73 sqM) Glucose 107 H (74-99) mg/dL Calcium 9.2 (8.4-10.2) mg/dL Total Bilirubin 0.6 (0.2-1.3) mg/dL AST 24 (14-36) U/L ALT 50 (9-52) U/L Alkaline Phosphatase 71 (38-126) U/L Troponin I (0.000-0.034) ng/mL Total Protein 7.1 (6.3-8.2) g/dL Albumin 4.3 (3.5-5.0) g/dL 04/03/18 Range/Units 14:30 WBC (3.8-10.6) k/uL RBC (3.80-5.40) m/uL Hgb (11.4-16.0) gm/dL Hct (34.0-46.0) % MCV (80.0-100.0) fL MCH (25.0-35.0) pg MCHC (31.0-37.0) g/dL RDW (11.5-15.5) % Plt Count (150-450) k/uL Neutrophils % % Lymphocytes % % Monocytes % % Eosinophils % % Basophils % % Neutrophils # (1.3-7.7) k/uL Lymphocytes # (1.0-4.8) k/uL Monocytes # (0-1.0) k/uL Eosinophils # (0-0.7) k/uL Basophils # (0-0.2) k/uL PT (9.0-12.0) sec INR (<1.2) APTT (22.0-30.0) sec D-Dimer (<0.60) mg/L FEU Sodium (137-145) mmol/L Potassium (3.5-5.1) mmol/L Chloride (98-107) mmol/L Carbon Dioxide (22-30) mmol/L Anion Gap mmol/L BUN (7-17) mg/dL Creatinine (0.52-1.04) mg/dL Est GFR (CKD-EPI)AfAm (>60 ml/min/1.73 sqM) Est GFR (CKD-EPI)NonAf (>60 ml/min/1.73 sqM) Glucose (74-99) mg/dL Calcium (8.4-10.2) mg/dL Total Bilirubin (0.2-1.3) mg/dL AST (14-36) U/L ALT (9-52) U/L Alkaline Phosphatase (38-126) U/L Troponin I <0.012 (0.000-0.034) ng/mL Total Protein (6.3-8.2) g/dL Albumin (3.5-5.0) g/dL 04/03/18 15:19 Normal sinus rhythm. Nonspecific T-wave abnormality. Abnormal EKG. Ventricular rate 90 beats per minutes. 146 most seconds. Care physician 74 ms. QT QTC 364/445 ms. - Radiology Data Radiology results: report reviewed CXR negative for any acute process. Disposition Clinical Impression: Asthma exacerbation with COPD (chronic obstructive pulmonary disease) Disposition: HOME SELF-CARE Condition: Good Instructions (If sedation given, give patient instructions): Asthma (ED) Additional Instructions: Patient advised of close follow-up with your primary care physician. Return to emergency department if any alarming signs or symptoms occur. Patient needs to discontinue smoking. Use the DuoNeb treatments as prescribed as well as use the steroids. Return to the emergency department if any worsening difficulty breathing and also follow up with pulmonology. Prescriptions: Ipratropium-Albuterol Nebulize [Duoneb 0.5 mg-3 mg/3 ml Soln] 3 ml INHALATION TID #30 neb predniSONE 50 mg PO DAILY #5 tablet Is patient prescribed a controlled substance at d/c from ED?: No Referrals: Clementina Israel MD [Primary Care Provider] - 1-2 days Time of Disposition: 16:22
[2018-04-03 14:49] LABS: Basophils % (A) 1 %; Eosinophils # (A) 0.1 k/uL (0-0.7); Eosinophils % (A) 1 %; HCT 42.6 % (34.0-46.0); HGB 14.6 gm/dL (11.4-16.0); Lymphocytes # (A) 2.2 k/uL (1.0-4.8); Lymphocytes % (A) 31 %; MCH 32.1 pg (25.0-35.0); MCHC 34.3 g/dL (31.0-37.0); MCV 93.7 fL (80.0-100.0); Mean Platelet Volume 6.8; Monocytes # (A) 0.4 k/uL (0-1.0); Monocytes % (A) 6 %; Neutrophils # (A) 4.3 k/uL (1.3-7.7); Neutrophils % (A) 59 %; Platelet Count 230 k/uL (150-450); RBC 4.55 m/uL (3.80-5.40); RDW 13.5 % (11.5-15.5); WBC 7.2 k/uL (3.8-10.6)
[2018-04-03 14:59] LABS: ALT 50 U/L (9-52); AST 24 U/L (14-36); Albumin 4.3 g/dL (3.5-5.0); Alkaline Phosphatase 71 U/L (38-126); Anion Gap 10 mmol/L; Blood Urea Nitrogen 15 mg/dL (7-17); Calcium 9.2 mg/dL (8.4-10.2); Carbon Dioxide 24 mmol/L (22-30); Chloride 107 mmol/L (98-107); Glucose 107 mg/dL (74-99); Potassium 3.2 mmol/L (3.5-5.1); Sodium 141 mmol/L (137-145); Total Bilirubin 0.6 mg/dL (0.2-1.3); Total Protein 7.1 g/dL (6.3-8.2)
[2018-04-03 15:05] LABS: D-Dimer 0.34 mg/L FEU (<0.60); INR 0.9 (<1.2); Partial Thromboplastin Time 25.7 sec (22.0-30.0); Prothrombin Time 9.9 sec (9.0-12.0)
--- NOTE | 2018-04-03 15:14 | XR ---
EXAMINATION TYPE: XR chest 2V DATE OF EXAM: 04/03/2018 COMPARISON: 01/13/2012 TECHNIQUE: PA and lateral views submitted. HISTORY: Shortness of breath and cough FINDINGS: The lungs are clear and there is no pneumothorax, pleural effusion, or focal pneumonia. No overt fa ilure. Hypertrophic change of the vertebral column noted. IMPRESSION: 1. No acute process.
[2018-04-03 16:53] VITALS: BP 137/95; PULSE 66; RESP 16
== END 2018-04-03 16:51 | disposition home or self-care (01) ==
LOC: EC 12:47
DX: J44.9 Chronic obstructive pulmonary disease, unspecified (principal); R94.31 Abnormal electrocardiogram [ECG] [EKG]; E03.9 Hypothyroidism, unspecified; D64.9 Anemia, unspecified; E55.9 Vitamin D deficiency, unspecified; F17.200 Nicotine dependence, unspecified, uncomplicated; Z91.030 Bee allergy status; Z79.890 Hormone replacement therapy; Z79.899 Other long term (current) drug therapy
CPT/HCPCS: 99285; 96374; 96361 ×2; 36415; 94640; 93005; 85379; 80053; 84484; 85025; 85610; 85730; 71046; J2930

== ENCOUNTER → 2018-10-03 | Outpatient (CLI) | payer BC ==
--- NOTE | 2018-10-04 03:46 | US ---
EXAMINATION TYPE: US pelvic complete DATE OF EXAM: 10/03/2018 COMPARISON: CT 2018 CLINICAL HISTORY: 38-year-old female Z80.49, N92.0. Irregular heavy cycles, spotting in between perio ds, 4, para 4, history of 2 c-sections TECHNIQUE: Transabdominal sonographic images of the pelvis were acquired. Transvaginal sonographic images were medically necessary to better assess the following anatomy: ovaries and endometrium Date of LMP: 08/26/2018 FINDINGS: EXAM MEASUREMENTS: Uterus: 9.3 x 4.7 x 5.0 cm Endometrial Stripe: 1.4 cm Right Ovary: not seen Left Ovary: not seen Glass Maker notes:Difficult and limited study due to patient body habitus 1. Uterus: heterogeneous . Tiny 3 mm cystic structure along the anterior lower uterine segment at th e level of the patient's scar. 2. Endometrium: borderline thickened 3. Right Ovary: not seen due to overlying bowel gas 4. Left Ovary: not seen due to overlying bowel gas 5. Bilateral Adnexa: wnl 6. Posterior cul-de-sac: small amount of free fluid IMPRESSION: 1. Technically difficult and limited study. 2. 3 mm cystic structure along the anterior HAL at the level of the patient's scar. Finding s may represent a tiny scar niche. 3. Small amount of cul-de-sac free fluid likely physiologic. 4. Heterogeneous myometrium may be seen in the setting of diffuse small fibroid change or adenomyosis . 5. Neither ovary could be visualized.
== END | disposition home or self-care (01) ==
LOC: RADUSWWP 15:32
PROVIDERS: ATTEND Family Medicine
DX: N85.8 Other specified noninflammatory disorders of uterus (principal); R93.89 Abnormal findings on diagnostic imaging of other specified body structures; Z80.49 Family history of malignant neoplasm of other genital organs
CPT/HCPCS: 76830; 76856

== ENCOUNTER 2019-05-03 20:01 | Inpatient (IN) | payer BC ==
[2019-05-03] MEDS ORDERED: ONDANSETRON 4 MG/2 ML VIAL IVP STA (20:22)
[2019-05-03] MEDS ORDERED: SODIUM CHLORIDE 0.9% 1,000 ML IV ONE (20:23)
[2019-05-03] MEDS ORDERED: HYDROmorphone 0.5 MG/0.5 ML SYRINGE IVP STA ×2 (20:23→21:24)
[2019-05-03] MEDS ORDERED: SODIUM CHLORIDE 0.9% 500 ML 500 ML IV ONE (20:23)
[2019-05-03 20:34] LABS: Basophils % (A) 0 %; Eosinophils # (A) 0.3 k/uL (0-0.7); Eosinophils % (A) 2 %; HCT 42.4 % (34.0-46.0); HGB 14.6 gm/dL (11.4-16.0); Lymphocytes # (A) 1.7 k/uL (1.0-4.8); Lymphocytes % (A) 13 %; MCH 32.8 pg (25.0-35.0); MCHC 34.4 g/dL (31.0-37.0); MCV 95.3 fL (80.0-100.0); Mean Platelet Volume 7.3; Monocytes # (A) 0.5 k/uL (0-1.0); Monocytes % (A) 4 %; Neutrophils % (A) 78 %; Platelet Count 332 k/uL (150-450); RBC 4.45 m/uL (3.80-5.40); RDW 13.3 % (11.5-15.5); WBC 12.9 k/uL (3.8-10.6)
[2019-05-03 20:41] LABS: ALT 22 U/L (4-34); AST 27 U/L (14-36); African American GFR (CKD) >90 (>60 ml/min/1.73 sqM); Albumin 4.8 g/dL (3.5-5.0); Alkaline Phosphatase 59 U/L (38-126); Anion Gap 10 mmol/L; Blood Urea Nitrogen 13 mg/dL (7-17); Calcium 9.9 mg/dL (8.4-10.2); Carbon Dioxide 19 mmol/L (22-30); Chloride 106 mmol/L (98-107); Glucose 133 mg/dL (74-99); Non-African American GFR(CKD) >90 (>60 ml/min/1.73 sqM); Potassium 4.2 mmol/L (3.5-5.1); Sodium 135 mmol/L (137-145); Total Bilirubin 0.6 mg/dL (0.2-1.3); Total Protein 7.7 g/dL (6.3-8.2)
--- NOTE | 2019-05-03 21:16 | CT ---
EXAMINATION TYPE: CT abdomen pelvis w con DATE OF EXAM: 05/03/2019 HISTORY: abdominal pain CT DLP: 1790.5mGycm Automated Exposure Control for Dose Reduction was Utilized. CONTRAST: CT scan of the abdomen and pelvis is performed without oral but with IV Contrast, patient injected wi th 100 mL of Isovue 300. COMPARISON: CT abdomen and pelvis October 12, 2017 FINDINGS: LUNG BASES: No significant abnormality is appreciated. LIVER/GB: Gallbladder once again not identified presumed surgically absent. Liver is low density sugg esting possible fatty infiltration. PANCREAS: Some calcifications in the pancreatic head and uncinate process redemonstrated. Increased i n number from prior study. Moderate to severe ill-defined fluid and fat stranding along course of ent chandrakant pancreas. Pancreatic duct is mildly dilated proximal body and head to the duodenal ampulla where there may be obstructing calculus coronal image 41. No significant extrahepatic biliary dilatation. P ancreatic duct measures up to nearly 5 mm near ampulla. No definitive areas of necrosis or nonenhance ment. No well-formed fluid collection is present. SPLEEN: No significant abnormality is seen. ADRENALS: No significant abnormality is seen. KIDNEYS: No significant abnormality is seen. BOWEL: Suboptimal evaluation without enteric contrast. No suspicious small or large bowel dilatation. UTERUS/ADNEXA: Anteverted uterus. Ovaries are within normal limits in size. Right ovary has periphera l 1.3 cm hyperdense follicle axial image 60. LYMPH NODES: No greater than 1cm abdominal or pelvic lymph nodes are appreciated. OSSEOUS STRUCTURES: No significant abnormality is seen. OTHER: No significant additional abnormality is seen. IMPRESSION: There is fairly severe uncomplicated acute on chronic pancreatitis with mild proximal tierney caleb dilatation. Cannot exclude a pancreatic calcification causing some narrowing or occlusion of the pancreatic duct near the duodenal ampulla. No definitive necrosis or well-formed fluid collection cur rently.
[2019-05-03 21:17] LABS: Amylase 2154 U/L (30-110)
[2019-05-03 21:21] LABS: Appearance,Urine Clear (Clear); Bilirubin,Urine Negative (Negative); Blood,Urine Negative (Negative); Color,Urine Yellow; Glucose,Urine (UA) Negative (Negative); Ketones,Urine 1+ (Negative); Leukocyte Esterase,Urine Negative (Negative); Nitrite,Urine Negative (Negative); PH, Urine 5.5 (5.0-8.0); Protein,Urine Negative (Negative); Specific Gravity,Urine 1.044 (1.001-1.035); Urobilinogen,Urine <2.0 mg/dL (<2.0)
[2019-05-03] MEDS ORDERED: NALOXONE 0.4 MG/ML 1 ML VIAL IV PRN (21:25)
[2019-05-03] MEDS ORDERED: ONDANSETRON 4 MG/2 ML VIAL IVP PRN (21:25)
[2019-05-03] MEDS ORDERED: HYDROmorphone 0.5 MG/0.5 ML SYRINGE IVP PRN (21:25)
--- NOTE | 2019-05-03 21:30 | ED ---
Abdominal Pain HPI - General Source: patient Mode of arrival: ambulatory Limitations: no limitations <Herlinda Sanchez - Last Filed: 05/03/19 22:04> <Yuniel Barba - Last Filed: 05/03/19 23:33> - General Chief Complaint: Abdominal Pain Stated Complaint: Abd pain Time Seen by Provider: 05/03/19 20:09 - History of Present Illness Initial Comments: 38-year-old female presenting today for chief complaint of epigastric pain that began at 3 PM. Patient states that she does have history of pancreatitis she states it was initially secondary to a copies. 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 Patient denies any new medications. Patient denies any recent RUQ, denies fever or chills. Patient states that she has had nausea vomiting accompanying the epigastric pain that radiates to her back. Patient states the pain became so severe that she felt as best presents emergency department. Patient denies melena hematochezia lower abdominal pain chest pain shortness of breath or arm or jaw pain. Patient states this feels identical to when she's had pancreatitis in the past. Review of systems negative on arrival patient appears uncomfortable, writhing around in pain. (Herlinda Sanchez) - Related Data Home Medications Medication Instructions Recorded Confirmed Cholecalciferol (Vitamin D3) 2,000 unit PO DAILY 10/12/17 04/03/18 [Vitamin D3] Ferrous Sulfate [Iron (65 MG 325 mg PO DAILY 10/12/17 04/03/18 Elemental)] Levothyroxine Sodium [Synthroid] 75 mcg PO DAILY 11/18/17 04/03/18 Albuterol Nebulized (Conc) 2.5 mg INHALATION RT-Q4H 04/03/18 04/03/18 [Ventolin Nebulized (Conc)] Albuterol Sulfate [Proair Hfa] 2 puff INHALATION RT-Q4H 04/03/18 04/03/18 Amoxic-Pot Clav 500-125 mg 1 tab PO TID 04/03/18 04/03/18 [Augmentin 500-125 mg] Montelukast [Singulair] 10 mg PO DAILY 04/03/18 04/03/18 Previous Rx's Medication Instructions Recorded Ipratropium-Albuterol Nebulize 3 ml INHALATION TID #30 neb 04/03/18 [Duoneb 0.5 mg-3 mg/3 ml Soln] predniSONE 50 mg PO DAILY #5 tablet 04/03/18 Allergies Allergy/AdvReac Type Severity Reaction Status Date / Time venom-honey bee Allergy Intermediate Swelling Verified 05/03/19 20:05 [bee venom (honey bee)] increasingly worse with each sting Review of Systems ROS Other: All systems not noted in ROS Statement are negative. <Herlinda Sanchez - Last Filed: 05/03/19 22:04> ROS Other: All systems not noted in ROS Statement are negative. <Yuniel Barba - Last Filed: 05/03/19 23:33> ROS Statement: Those systems with pertinent positive or pertinent negative responses have been documented in the HPI. Past Medical History Past Medical History: Asthma, Thyroid Disorder Additional Past Medical History / Comment(s): Other HX: pancreatitis, hypokalemia, hypothyroidism,anemia, vit D deficiency History of Any Multi-Drug Resistant Organisms: None Reported Past Surgical History: Section, Cholecystectomy, Orthopedic Surgery Additional Past Surgical History / Comment(s): R foot injury-Sx repair,c-sect x 2 Past Anesthesia/Blood Transfusion Reactions: No Reported Reaction Additional Past Anesthesia/Blood Transfusion Reaction / Comment(s): Pt states she has never recieved blood,took awhile to come out of anesthesia with foot surg. Past Psychological History: ADD/ADHD, Anxiety Smoking Status: Current every day smoker Past Alcohol Use History: Occasional Past Drug Use History: Marijuana - Past Family History Father Family Medical History: Congestive Heart Failure (CHF) Additional Family Medical History / Comment(s): Father has a pacer. Mother Family Medical History: Cancer Additional Family Medical History / Comment(s): Mother had uterine cancer. She is 59 yrs old. <Herlinda Sanchez - Last Filed: 05/03/19 22:04> General Exam Limitations: no limitations <Herlinda Sanchez - Last Filed: 05/03/19 22:04> - General Exam Comments Initial Comments: General: The patient is awake and alert, in no distress Eye: +3 mm pupils are equal, round and reactive to light, extra-ocular movements are intact. No nystagmus. There is normal conjunctiva bilaterally. No signs of icterus. Ears, nose, mouth and throat: There are moist mucous membranes and no oral lesions. Neck: The neck is supple, there is no tenderness or JVD. Cardiovascular: There is a regular rate and rhythm. No murmur, rub or gallop is appreciated. Respiratory: Lungs are clear to auscultation, respirations are non-labored, breath sounds are equal. No wheezes, stridor, rales, or rhonchi. Gastrointestinal: Soft, non-distended, epigastric abdominal pain, remaining abdomen nontender without masses or organomegaly noted. There is no rebound or guarding present. Musculoskeletal: Normal ROM, no tenderness. Strength 5/5. Sensation intact. Radial pulses equal bilaterally 2+. Neurological: A&O x 3. CN II-XII intact grossly, There are no obvious motor or sensory deficits. Coordination appears grossly intact. Speech is normal. Skin: Skin is warm and dry and no rashes or lesions are noted. Psychiatric: Cooperative, appropriate mood & affect, normal judgment. (Herlinda Sanchez) Course <Yuniel Barba - Last Filed: 05/03/19 23:33> Vital Signs 05/03/19 05/03/19 20:02 21:41 Temperature 97.4 F L 98.2 F Pulse Rate 111 H 83 Respiratory 20 18 Rate Blood Pressure 152/86 143/98 O2 Sat by Pulse 95 98 Oximetry - Reevaluation(s) Reevaluation #1: 05/03/19 23:32 PA supervision: I personally evaluate this case patient did present with complaints of abdominal pain. It started today. Patient was noted have marke dly elevated lipase and amylase levels. She has had that show evidence of acute chronic pancreatitis. Discussed with Marquis from Dr. Jewell's service. Consultation will be made by GI. (Yuniel Barba) Medical Decision Making - Lab Data Result diagrams: 05/03/19 20:10 05/03/19 20:10 <Herlinda Sanchez - Last Filed: 05/03/19 22:04> - Lab Data Result diagrams: 05/03/19 20:10 05/03/19 20:10 <Yuniel Barba - Last Filed: 05/03/19 23:33> - Medical Decision Making 38-year-old feel presenting today for chief complaint of epigastric pain history of pancreatitis. There is ductal dilation on the CT differential diagnosis includes stone, acute on chronic pancreatitis. Lipase >73233. Patient pain controlled with dilaudid. Patient placed NPO. Zosyn initiated for possible stone. Patient does not appears septic at this time. Patient has IVF initiated. Patient will be admitted for monitoring, pain control and IV hydration. Patient agreeable discussed case with Dr. Barba who is agreeable to care plan and admission. (Herlinda Sanchez) - Lab Data Lab Results 05/03/19 05/03/19 05/03/19 Range/Units 20:10 20:10 20:10 WBC 12.9 H (3.8-10.6) k/uL RBC 4.45 (3.80-5.40) m/uL Hgb 14.6 (11.4-16.0) gm/dL Hct 42.4 (34.0-46.0) % MCV 95.3 (80.0-100.0) fL MCH 32.8 (25.0-35.0) pg MCHC 34.4 (31.0-37.0) g/dL RDW 13.3 (11.5-15.5) % Plt Count 332 (150-450) k/uL Neutrophils % 78 % Lymphocytes % 13 % Monocytes % 4 % Eosinophils % 2 % Basophils % 0 % Neutrophils # 10.0 H (1.3-7.7) k/uL Lymphocytes # 1.7 (1.0-4.8) k/uL Monocytes # 0.5 (0-1.0) k/uL Eosinophils # 0.3 (0-0.7) k/uL Basophils # 0.0 (0-0.2) k/uL Sodium 135 L (137-145) mmol/L Potassium 4.2 (3.5-5.1) mmol/L Chloride 106 (98-107) mmol/L Carbon Dioxide 19 L (22-30) mmol/L Anion Gap 10 mmol/L BUN 13 (7-17) mg/dL Creatinine 0.66 (0.52-1.04) mg/dL Est GFR (CKD-EPI)AfAm >90 (>60 ml/min/1.73 sqM) Est GFR (CKD-EPI)NonAf >90 (>60 ml/min/1.73 sqM) Glucose 133 H (74-99) mg/dL Calcium 9.9 (8.4-10.2) mg/dL Total Bilirubin 0.6 (0.2-1.3) mg/dL AST 27 (14-36) U/L ALT 22 (4-34) U/L Alkaline Phosphatase 59 (38-126) U/L Total Protein 7.7 (6.3-8.2) g/dL Albumin 4.8 (3.5-5.0) g/dL Amylase 2154 H* (30-110) U/L Lipase 72603 H (23-300) U/L Urine Color Urine Appearance (Clear) Urine pH (5.0-8.0) Ur Specific [place] (1.001-1.035) Urine Protein (Negative) Urine Glucose (UA) (Negative) Urine Ketones (Negative) Urine Blood (Negative) Urine Nitrite (Negative) Urine Bilirubin (Negative) Urine Urobilinogen (<2.0) mg/dL Ur Leukocyte Esterase (Negative) Serum Alcohol <10 mg/dL 05/03/19 Range/Units 21:05 WBC (3.8-10.6) k/uL RBC (3.80-5.40) m/uL Hgb (11.4-16.0) gm/dL Hct (34.0-46.0) % MCV (80.0-100.0) fL MCH (25.0-35.0) pg MCHC (31.0-37.0) g/dL RDW (11.5-15.5) % Plt Count (150-450) k/uL Neutrophils % % Lymphocytes % % Monocytes % % Eosinophils % % Basophils % % Neutrophils # (1.3-7.7) k/uL Lymphocytes # (1.0-4.8) k/uL Monocytes # (0-1.0) k/uL Eosinophils # (0-0.7) k/uL Basophils # (0-0.2) k/uL Sodium (137-145) mmol/L Potassium (3.5-5.1) mmol/L Chloride (98-107) mmol/L Carbon Dioxide (22-30) mmol/L Anion Gap mmol/L BUN (7-17) mg/dL Creatinine (0.52-1.04) mg/dL Est GFR (CKD-EPI)AfAm (>60 ml/min/1.73 sqM) Est GFR (CKD-EPI)NonAf (>60 ml/min/1.73 sqM) Glucose (74-99) mg/dL Calcium (8.4-10.2) mg/dL Total Bilirubin (0.2-1.3) mg/dL AST (14-36) U/L ALT (4-34) U/L Alkaline Phosphatase (38-126) U/L Total Protein (6.3-8.2) g/dL Albumin (3.5-5.0) g/dL Amylase (30-110) U/L Lipase (23-300) U/L Urine Color Yellow Urine Appearance Clear (Clear) Urine pH 5.5 (5.0-8.0) Ur Specific [place] 1.044 H (1.001-1.035) Urine Protein Negative (Negative) Urine Glucose (UA) Negative (Negative) Urine Ketones 1+ H (Negative) Urine Blood Negative (Negative) Urine Nitrite Negative (Negative) Urine Bilirubin Negative (Negative) Urine Urobilinogen <2.0 (<2.0) mg/dL Ur Leukocyte Esterase Negative (Negative) Serum Alcohol mg/dL Disposition Is patient prescribed a controlled substance at d/c from ED?: No Time of Disposition: 21:31 Decision to Admit Reason: Admit from EC Decision Date: 05/03/19 Decision Time: 21:31 <Herlinda Sanchez - Last Filed: 05/03/19 22:04> <Yuniel Barba - Last Filed: 05/03/19 23:33> Clinical Impression: Pancreatitis, Pancreatic duct dilated, Epigastric abdominal pain Disposition: ADMITTED IP TO THIS [facility] Condition: Stable
[2019-05-03] MEDS: SODIUM CHLORIDE 0.9% 1,000 ML IV SCH (21:32)
[2019-05-03] MEDS ORDERED: PIPERACILLIN-TAZOBACTAM 3.375 GM in SODIUM CHLORIDE 0.9% 100 ML IVPB STA (22:03)
[2019-05-04] MEDS: KETOROLAC 30 MG/ML 1 ML VIAL IVP SCH ×5 (00:50→23:51)
[2019-05-04] MEDS: HYDROmorphone 0.5 MG/0.5 ML SYRINGE IVP PRN ×4 (03:30→21:44)
[2019-05-04] MEDS: SODIUM CHLORIDE 0.9% 1,000 ML IV SCH ×4 (06:02→21:48)
[2019-05-04 06:58] LABS: Amylase 1164 U/L (30-110)
[2019-05-04] MEDS: PANTOPRAZOLE 40 MG/10 ML VIAL IVP SCH (08:21)
[2019-05-04] MEDS ORDERED: ALBUTEROL NEBULIZED 2.5 MG/3 ML INHALATION PRN ×2 (12:38)
--- NOTE | 2019-05-04 14:04 | P.HPIM ---
History of Present Illness Patient is a very pleasant 38-year-old female came in with complaints of epigastric abdominal pain she be in severe radiating to the back with multiple episodes of nausea vomiting has been going on for last 3-4 days patient had about 3-4 episodes of pancreatitis in the past patient is found to have pancreatitis with highly elevated lipase and amylase. Computed tomography scan is consistent with that there was a suspicion that there is a calcified ampulla because of his gastric body evaluate the patient no intervention is being planned at this abnormal finding and ampullary area patient is presently nothing by mouth IV fluids at 1 25 mL/h which was decreased from 1 75 mL per hour presently nausea is better still have some abdominal pain lipase have come down significantly etiology of this pancreatitis is not clear patient had a cholecystectomy in the past when she had previous episodes of pancreatitis patient drinks alcohol only an occasional basis not an alcoholic. Triglyceride levels will be obtained tomorrow morning. Review of Systems I REVIEW OF SYSTEMS: CONSTITUTIONAL: No fever, no malaise, no fatigue. HEENT: No recent visual problems or hearing problems. Denied any sore throat. CARDIOVASCULAR: No chest pain, orthopnea, PND, no palpitations, no syncope. PULMONARY: No shortness of breath, no cough, no hemoptysis. GASTROINTESTINAL: As mentioned in HPI NEUROLOGICAL: No headaches, no weakness, no numbness. HEMATOLOGICAL: Denies any bleeding or petechiae. GENITOURINARY: Denies any burning micturition, frequency, or urgency. MUSCULOSKELETAL/RHEUMATOLOGICAL: Denies any joint pain, swelling, or any muscle pain. ENDOCRINE: Denies any polyuria or polydipsia. The rest of the 14-point review of systems is negative. Past Medical History Past Medical History: Asthma, Thyroid Disorder Additional Past Medical History / Comment(s): Other HX: pancreatitis, hypokalemia, hypothyroidism,anemia, vit D deficiency History of Any Multi-Drug Resistant Organisms: None Reported Past Surgical History: Section, Cholecystectomy, Orthopedic Surgery Additional Past Surgical History / Comment(s): R foot injury-Sx repair,c-sect x 2 Past Anesthesia/Blood Transfusion Reactions: No Reported Reaction Additional Past Anesthesia/Blood Transfusion Reaction / Comment(s): Pt states she has never recieved blood,took awhile to come out of anesthesia with foot surg. Past Psychological History: ADD/ADHD, Anxiety Additional Psychological History / Comment(s): Pt resides with her spouse and children. She is independent. She drives. Homemaker Smoking Status: Current every day smoker Past Alcohol Use History: Occasional Additional Past Alcohol Use History / Comment(s): Pt states she started smoking at age 17yrs and is alittle less than a ppd smoker. Pt states she drinks less than 7 drinks per week. Past Drug Use History: Marijuana Additional Drug Use History / Comment(s): Pt smokes marijuana occasionally. - Past Family History Father Family Medical History: Congestive Heart Failure (CHF) Additional Family Medical History / Comment(s): Father has a pacer. Mother Family Medical History: Cancer Additional Family Medical History / Comment(s): Mother had uterine cancer. She is 59 yrs old. Medications and Allergies Home Medications Medication Instructions Recorded Confirmed Type Cholecalciferol (Vitamin D3) 2,000 unit PO DAILY 10/12/17 05/04/19 History [Vitamin D3] Ferrous Sulfate [Iron (65 MG 325 mg PO DAILY 10/12/17 05/04/19 History Elemental)] Levothyroxine Sodium [Synthroid] 75 mcg PO DAILY 11/18/17 05/04/19 History Albuterol Sulfate [Proair Hfa] 2 puff INHALATION RT-Q4H PRN 04/03/18 05/04/19 History Montelukast [Singulair] 10 mg PO DAILY 04/03/18 05/04/19 History Albuterol Nebulized [Ventolin 2.5 mg INHALATION RT-Q4H PRN 05/04/19 05/04/19 History Nebulized] Fluticasone/Salmeterol [Advair 1 puff INHALATION RT-BID 05/04/19 05/04/19 History 250-50 Diskus] Allergies Allergy/AdvReac Type Severity Reaction Status Date / Time venom-honey bee Allergy Intermediate Swelling Verified 05/04/19 09:40 [bee venom (honey bee)] increasingly worse with each sting Physical Exam Vitals: Vital Signs Temp Pulse Pulse Resp BP BP Pulse Ox 05/04/19 05:50 98.2 F 76 18 153/86 99 05/03/19 23:15 97.9 F 95 16 142/89 97 05/03/19 21:41 98.2 F 83 18 143/98 98 05/03/19 20:02 97.4 F L 111 H 20 152/86 95 Intake and Output 05/03/19 05/04/19 05/04/19 22:59 06:59 14:59 Other: # Voids 1 Weight 90.718 kg 90.718 kg PHYSICAL EXAMINATION: GENERAL: The patient is alert and oriented x3, not in any acute distress. Well developed, well nourished. HEENT: Pupils are round and equally reacting to light. EOMI. No scleral icterus. No conjunctival pallor. Normocephalic, atraumatic. No pharyngeal erythema. No thyromegaly. CARDIOVASCULAR: S1 and S2 present. No murmurs, rubs, or gallops. PULMONARY: Chest is clear to auscultation, no wheezing or crackles. ABDOMEN: Epigastric abdominal tenderness normoactive bowel sounds. No palpable organomegaly. MUSCULOSKELETAL: No joint swelling or deformity. EXTREMITIES: No cyanosis, clubbing, or pedal edema. NEUROLOGICAL: Gross neurological examination did not reveal any focal deficits. SKIN: No rashes. Results CBC & Chem 7: 05/03/19 20:10 05/03/19 20:10 Labs: Abnormal Lab Results - Last 24 Hours (Table) 05/03/19 05/03/19 05/03/19 Range/Units 20:10 20:10 21:05 WBC 12.9 H (3.8-10.6) k/uL Neutrophils # 10.0 H (1.3-7.7) k/uL Sodium 135 L (137-145) mmol/L Carbon Dioxide 19 L (22-30) mmol/L Glucose 133 H (74-99) mg/dL Amylase 2154 H* (30-110) U/L Lipase 24818 H (23-300) U/L Ur Specific [place] 1.044 H (1.001-1.035) Urine Ketones 1+ H (Negative) 05/04/19 Range/Units 06:17 WBC (3.8-10.6) k/uL Neutrophils # (1.3-7.7) k/uL Sodium (137-145) mmol/L Carbon Dioxide (22-30) mmol/L Glucose (74-99) mg/dL Amylase 1164 H* (30-110) U/L Lipase 6685 H (23-300) U/L Ur Specific [place] (1.001-1.035) Urine Ketones (Negative) Thrombosis Risk Factor Assmnt - Choose All That Apply Any of the Below Risk Factors Present?: Yes Each Factor Represents 1 point: Obesity (BMI >25) Other Risk Factors: No Other congenital or acquired thrombophilia - If yes, enter type in comment: No Thrombosis Risk Factor Assessment Total Risk Factor Score: 1 Thrombosis Risk Factor Assessment Level: Low Risk Assessment and Plan Plan: -Acute pancreatitis: Idiopathic patient was given IV fluids will remain nothing by mouth triglycerides Tomorrow morning. -Hypothyroidism can he with levothyroxine neck and- Asthma without any acute exacerbation -Nicotine abuse: Counseling was provided DVT prophylaxis early ambulation GI prophylaxis with Protonix
--- NOTE | 2019-05-04 18:08 | CONS ---
CONSULTATION DATE OF SERVICE: 05/04/2019 REQUESTING PHYSICIAN: Dr. Hinson. REASON FOR CONSULTATION: Acute pancreatitis. HISTORY OF PRESENT ILLNESS: The patient is a 38-year-old, pleasant, white female who was admitted to the hospital acute onset of severe epigastric pain associated with nausea and vomiting, which started about three to four days ago. The symptoms continued to progressively get worse and yesterday her symptoms got much worse. She threw up at least five or six times, came into the emergency room elevated amylase and lipase consistent with acute pancreatitis. She did have a CT of the abdomen and pelvis done in the emergency room that showed changes in the pancrease consistent with pancreatitis with slight dilation of the common bile duct. The patient had about three or four episodes of pancreatitis in the past. During one of the episodes of pancreatitis about two years ago she underwent gallbladder surgery. She has history of moderate alcohol use. She used to drink about three to four shots of liquor every day but she slowed down significantly for the last two years and right now drinks about once or twice a week. PAST MEDICAL HISTORY: Significant for asthma, hypothyroidism, acute recurrent pancreatitis. PAST SURGICAL HISTORY: Cholecystectomy, , right foot surgery. SOCIAL HISTORY: Chronic smoker. Occasional alcohol use with history of moderate drinking in the past. FAMILY HISTORY: Mother had episode of acute pancreatitis. Father has congestive heart failure. MEDICATIONS: Medications at home include Singulair, Advair, ProAir, vitamin D3, calcium, Synthroid, iron sulfate. ALLERGIES: BEE VENOM. REVIEW OF SYSTEMS: CARDIOPULMONARY: No chest pain or shortness of breath. GENITOURINARY: No dysuria or hematuria. MUSCULOSKELETAL: Unremarkable. SKIN: Unremarkable. ENDOCRINE: Unremarkable. PSYCHIATRIC: Unremarkable. NEUROLOGY: Unremarkable. ENT/VISION: Unremarkable. CONSTITUTIONAL: No recent weight loss. No fever, chills, or night sweats. PHYSICAL EXAMINATION: She appears comfortable. No apparent distress. VITAL SIGNS: Stable. Blood pressure is 106/71, pulse rate 64, temperature 98.2. HEENT: Unremarkable. Conjunctivae pink. Sclerae anicteric. Oral cavity has no lesions. NECK: No JVD or lymph node enlargement. CHEST: Clear to auscultation. HEART: Regular rate and rhythm. ABDOMEN: Soft. Bowel sounds are positive. Mild tenderness in the epigastric area. EXTREMITIES: No pedal edema. SKIN: No rashes. NEUROLOGIC: Alert and oriented x3. No focal deficits. LABS: Labs done at the time of admission to the hospital yesterday, WBC 12.9, hemoglobin 14.6, platelets normal. Basic metabolic panel is within normal limits. ALT, AST, T- bili, and alkaline phosphatase. Amylase is 2154, lipase is 14,813. Today amylase is down to 1164 and lipase is down to 6685. Serum alcohol less than 10. CT of the abdomen and pelvis done in the emergency room showed calcifications of the pancreatic head and uncinate process, increased from the prior study. Moderate to ill- defined fluid and fat surrounding along the entire pancreas consistent with acute pancreatitis and dilated pancreatic duct. IMPRESSION: Acute recurrent pancreatitis with calcifications noted in the pancreatic head would suggest chronic relapsing pancreatitis, probably related to prior history of alcohol use, though she has only moderate drinking in the past. Status post gallbladder surgery several years ago. Serum transaminases are within normal limits which makes it unlikely that we are dealing with a biliary pancreatitis. The patient is clinically doing better. RECOMMENDATIONS: 1. NPO. 2. Aggressive IV hydration. 3. Symptomatic and supportive care. 4. Repeat labs in the morning. 5. May need an EUS of the pancreas on an outpatient basis. 6. Agree with obtaining a serum fasting triglyceride level in the morning and we will follow with you closely. Thank you for this consultation. MMLINDSAYL / FRANCINEN: [id number] /
[2019-05-04] MEDS: SYMBICORT 80-4.5 MCG INHALER INHALATION SCH (19:15)
[2019-05-05] MEDS: HYDROmorphone 0.5 MG/0.5 ML SYRINGE IVP PRN ×4 (02:47→21:13)
[2019-05-05] MEDS: KETOROLAC 30 MG/ML 1 ML VIAL IVP SCH ×4 (06:18→23:34)
[2019-05-05] MEDS: LEVOTHYROXINE 75 MCG TAB PO SCH (06:18)
[2019-05-05] MEDS: SODIUM CHLORIDE 0.9% 1,000 ML IV SCH ×3 (06:20→21:13)
[2019-05-05 06:28] LABS: HCT 36.6 % (34.0-46.0); HGB 12.2 gm/dL (11.4-16.0); MCH 32.5 pg (25.0-35.0); MCHC 33.3 g/dL (31.0-37.0); MCV 97.4 fL (80.0-100.0); Mean Platelet Volume 7.3; Platelet Count 208 k/uL (150-450); RBC 3.76 m/uL (3.80-5.40); RDW 13.2 % (11.5-15.5); WBC 5.7 k/uL (3.8-10.6)
[2019-05-05 06:52] LABS: ALT 15 U/L (4-34); AST 20 U/L (14-36); African American GFR (CKD) >90 (>60 ml/min/1.73 sqM); Albumin 3.2 g/dL (3.5-5.0); Alkaline Phosphatase 47 U/L (38-126); Anion Gap 8 mmol/L; Blood Urea Nitrogen 4 mg/dL (7-17); Calcium 7.8 mg/dL (8.4-10.2); Carbon Dioxide 24 mmol/L (22-30); Chloride 104 mmol/L (98-107); Cholesterol 164 mg/dL (<200); Glucose 77 mg/dL (74-99); HDL Cholesterol 34 mg/dL (40-60); LDL Cholesterol,Calculated 78 mg/dL (0-99); Non-African American GFR(CKD) >90 (>60 ml/min/1.73 sqM); Potassium 3.3 mmol/L (3.5-5.1); Sodium 136 mmol/L (137-145); Total Bilirubin 0.5 mg/dL (0.2-1.3); Total Protein 5.8 g/dL (6.3-8.2); Triglycerides 259 mg/dL (<150)
[2019-05-05] MEDS: PANTOPRAZOLE 40 MG/10 ML VIAL IVP SCH (07:22)
[2019-05-05] MEDS: SYMBICORT 80-4.5 MCG INHALER INHALATION SCH ×2 (07:57→19:25)
[2019-05-05] MEDS ORDERED: POTASSIUM CHLORIDE 20 MEQ in WATER FOR INJECTION 1 100ML.BAG IVPB STA (09:18)
[2019-05-05 09:45] LABS: Amylase 414 U/L (30-110)
[2019-05-05] MEDS ORDERED: POTASSIUM CHLORIDE ER 20 MEQ TAB.ER PO STA (09:58)
--- NOTE | 2019-05-05 13:13 | P.PN ---
Subjective Progress Note Date: 05/05/19 Principal diagnosis: Patient is a very pleasant 38-year-old female came in with complaints of epigastric abdominal pain she be in severe radiating to the back with multiple episodes of nausea vomiting has been going on for last 3-4 days patient had about 3-4 episodes of pancreatitis in the past patient is found to have pancreatitis with highly elevated lipase and amylase. Computed tomography scan is consistent with that there was a suspicion that there is a calcified ampulla because of his gastric body evaluate the patient no intervention is being planned at this abnormal finding and ampullary area patient is presently nothing by mouth IV fluids at 1 25 mL/h which was decreased from 1 75 mL per hour presently nausea is better still have some abdominal pain lipase have come down significantly etiology of this pancreatitis is not clear patient had a cholecystectomy in the past when she had previous episodes of pancreatitis patient drinks alcohol only an occasional basis not an alcoholic. Triglyceride levels will be obtained tomorrow morning. 05/05/2019 Patient is seen and evaluated in follow-up today stating that her epigastric abdominal pain has gotten much better and patient's diet is being advanced to clear liquids and will continue to monitor. If patient tolerates diet can be advanced further as she tolerates it. GI is following the patient. Amylase is 414 and lipase is 1982. Potassium slightly low at 3.3 and will be replaced. Will repeat a.m. labs. Currently no reports of chest pain, shortness of breath, or palpitations. Patient is afebrile. No reports of nausea or vomiting and patient is tolerating diet. Objective - Vital Signs Vital signs: Vital Signs Temp 97.7 F 05/05/19 12:05 Pulse 68 05/05/19 12:05 Resp 17 05/05/19 12:05 BP 113/72 05/05/19 12:05 Pulse Ox 99 05/05/19 12:05 Intake & Output 05/04/19 05/05/19 05/05/19 18:59 06:59 18:59 Intake Total 1000 Balance 1000 Intake: Intake, IV Titration 1000 Amount Sodium Chloride 0.9% 1, 1000 000 ml @ 125 mls/hr IV . [facility] Rx#:[id number] Other: Voiding Method Toilet # Voids 4 2 - Exam GENERAL: The patient is alert and oriented x3, not in any acute distress. Well developed, well nourished. HEENT: Pupils are round and equally reacting to light. EOMI. No scleral icterus. No conjunctival pallor. Normocephalic, atraumatic. No pharyngeal erythema. No thyromegaly. CARDIOVASCULAR: S1 and S2 present. No murmurs, rubs, or gallops. PULMONARY: Chest is clear to auscultation, no wheezing or crackles. ABDOMEN: Soft, nontender, normoactive bowel sounds. No palpable organomegaly. MUSCULOSKELETAL: No joint swelling or deformity. EXTREMITIES: No cyanosis, clubbing, or pedal edema. NEUROLOGICAL: Gross neurological examination did not reveal any focal deficits. SKIN: No rashes. - Labs CBC & Chem 7: 05/05/19 05:50 05/05/19 05:50 Labs: Abnormal Lab Results - Last 24 Hours (Table) 05/05/19 05/05/19 05/05/19 Range/Units 05:50 05:50 05:50 RBC 3.76 L (3.80-5.40) m/uL Sodium 136 L (137-145) mmol/L Potassium 3.3 L (3.5-5.1) mmol/L BUN 4 L (7-17) mg/dL Calcium 7.8 L (8.4-10.2) mg/dL Total Protein 5.8 L (6.3-8.2) g/dL Albumin 3.2 L (3.5-5.0) g/dL Triglycerides 259 H (<150) mg/dL HDL Cholesterol 34 L (40-60) mg/dL Amylase 414 H* (30-110) U/L Lipase 1982 H (23-300) U/L Assessment and Plan Assessment: -Acute pancreatitis: Idiopathic. Patient remains on IV fluids and is being advanced to clear liquids today. Fasting triglycerides are high at 259. -Hypothyroidism -Asthma without any acute exacerbation -Nicotine abuse: Counseling was provided -DVT prophylaxis early ambulation -GI prophylaxis with Protonix Plan: Diet is being advanced to clear liquids and can be advanced as tolerated. Will repeat a.m. labs to monitor potassium. Patient denies any active nausea or vomiting. Possible discharge in 24 hours.
--- NOTE | 2019-05-05 14:43 | PN ---
PROGRESS NOTE DATE OF SERVICE: 05/05/2019 Patient is a 38-year-old pleasant white female admitted to hospital with acute recurrent pancreatitis. She presents with severe epigastric pain. She is feeling better. Abdominal pain has improved. No further episodes of nausea, vomiting. No fever, chills, or night sweats. PHYSICAL EXAMINATION: She appears comfortable, in no apparent distress. VITAL SIGNS: Stable. Blood pressure 130/72, pulse 68, temperature 97.7. HEENT: Examination unremarkable, conjunctivae are pink, sclerae nonicteric, oral cavity no lesions. NECK: No JVD or lymph node enlargement. CHEST: Clear to auscultation. HEART: Regular rate and rhythm. ABDOMEN: Soft. Bowel sounds are positive. No organomegaly. Mild tenderness in the epigastric area. EXTREMITIES: No pedal edema. SKIN: No rashes. NEURO: Alert and oriented x3. No focal deficits. LABS: WBC 5.7, hemoglobin 12.2, platelets normal. Basic metabolic panel, potassium is 3.3. Lipase is down to 192, Lasix 1 4. AST, ALT within normal limits. Fasting serum triglycerides 259. IMPRESSION: 1. Acute recurrent pancreatitis. CAT scan of the abdomen showing calcifications in the pancreas consistent with chronic pancreatitis. 2. Serum fasting triglycerides are within normal limits. 3. Amylase and lipase improving, clinically patient has significantly improved. 4. History of remote alcohol abuse. RECOMMENDATIONS: 1. Start on a clear liquid diet. 2. Pain medications as needed. 3. Increase ambulation. 4. Will obtain serum IgG 4 level to rule out any pancreatitis. 5. Repeat labs in the morning and if she is improved, she can be discharged home with outpatient followup in 2 weeks. Thank you for this consultation. MMODL / IJN: [id number] /
[2019-05-05 23:06] VITALS: RESP 18
[2019-05-06] MEDS: HYDROmorphone 0.5 MG/0.5 ML SYRINGE IVP PRN (01:37)
[2019-05-06] MEDS: SODIUM CHLORIDE 0.9% 1,000 ML IV SCH (05:48)
[2019-05-06] MEDS: LEVOTHYROXINE 75 MCG TAB PO SCH (05:48)
[2019-05-06] MEDS: KETOROLAC 30 MG/ML 1 ML VIAL IVP SCH (05:48)
[2019-05-06 06:02] VITALS: BP 131/76; PULSE 88; TEMP 97.5
[2019-05-06] MEDS: PANTOPRAZOLE 40 MG/10 ML VIAL IVP SCH (07:00)
[2019-05-06 07:16] LABS: African American GFR (CKD) >90 (>60 ml/min/1.73 sqM); Anion Gap 4 mmol/L; Blood Urea Nitrogen 3 mg/dL (7-17); Calcium 7.9 mg/dL (8.4-10.2); Carbon Dioxide 25 mmol/L (22-30); Chloride 107 mmol/L (98-107); Glucose 97 mg/dL (74-99); Non-African American GFR(CKD) >90 (>60 ml/min/1.73 sqM); Potassium 3.6 mmol/L (3.5-5.1); Sodium 136 mmol/L (137-145)
[2019-05-06] MEDS: SYMBICORT 80-4.5 MCG INHALER INHALATION SCH (07:36)
[2019-05-06 10:15] LABS: IgG Subclass 3 45.7 mg/dL (11.0-85.0); IgG Subclass 4 31.1 mg/dL (3.0-175.0)
--- NOTE | 2019-05-06 13:00 | P.DS ---
Providers Date of admission: 05/03/19 22:55 Expected date of discharge: 05/06/19 Attending physician: Val Jacobsen Consults: 05/03/19 21:28 Consult Physician Routine Consulting Provider: Harmony Mars Consult Reason/Comments: Pancreatitis Do you want consulting provider notified?: Yes Primary care physician: [facility] Course: Final diagnosis -Acute pancreatitis: Idiopathic -Hypertriglyceridemia -Hypothyroidism -Asthma without any acute exacerbation -Nicotine abuse: Counseling was provided -DVT prophylaxis -GI prophylaxis Discharge disposition Patient is being discharged in a stable condition with guarded prognosis to home. Patient will follow-up with Dr. Castelan upon discharge. Patient will also follow-up with GI Dr. Mars in the outpatient setting. Total time taken is 35 minutes. History of present illness This is a 38-year-old female who was recently admitted with epigastric abdominal pain with multiple episodes of nausea and vomiting and is being closely monitored. GI following. Patient was being treated for pancreatitis. Amylase and lipase levels were highly elevated. Repeat labs showed improvement and patient has been able to tolerate diet and would like to go home today. Patient will continue on Protonix daily and will follow-up with her primary care provider along with GI in the outpatient setting. Instructed patient to continue advancing diet slowly as tolerated. Currently no reports of chest pain, shortness of breath, or palpitations. Patient is afebrile. No reports of nausea or vomiting and patient is tolerating diet. On exam vital signs are stable. Temp is 97.5F, pulse is 88, respirations are 18, blood pressure is 131/76, oxygen saturation is 95% on room air. Cardio S1, S2 are present. Respiratory shows clear to auscultation. Abdomen is soft and nontender. Nervous system shows no focal deficits. Please refer to medication reconciliation sheet for a list of medications. Patient Condition at Discharge: Stable Plan - Discharge Summary Discharge Rx Participant: No New Discharge Prescriptions: New Pantoprazole Sodium [Protonix] 40 mg PO DAILY #30 tablet. Continue Ferrous Sulfate [Iron (65 MG Elemental)] 325 mg PO DAILY Cholecalciferol (Vitamin D3) [Vitamin D3] 2,000 unit PO DAILY Levothyroxine Sodium [Synthroid] 75 mcg PO DAILY Montelukast [Singulair] 10 mg PO DAILY Albuterol Sulfate [Proair Hfa] 2 puff INHALATION RT-Q4H PRN PRN Reason: Shortness Of Breath Fluticasone/Salmeterol [Advair 250-50 Diskus] 1 puff INHALATION RT-BID Albuterol Nebulized [Ventolin Nebulized] 2.5 mg INHALATION RT-Q4H PRN PRN Reason: Shortness Of Breath Discharge Medication List Cholecalciferol (Vitamin D3) [Vitamin D3] 2,000 unit PO DAILY 10/12/17 [History] Ferrous Sulfate [Iron (65 MG Elemental)] 325 mg PO DAILY 10/12/17 [History] Levothyroxine Sodium [Synthroid] 75 mcg PO DAILY 11/18/17 [History] Albuterol Sulfate [Proair Hfa] 2 puff INHALATION RT-Q4H PRN 04/03/18 [History] Montelukast [Singulair] 10 mg PO DAILY 04/03/18 [History] Albuterol Nebulized [Ventolin Nebulized] 2.5 mg INHALATION RT-Q4H PRN 05/04/19 [History] Fluticasone/Salmeterol [Advair 250-50 Diskus] 1 puff INHALATION RT-BID 05/04/19 [History] Pantoprazole Sodium [Protonix] 40 mg PO DAILY #30 tablet. 05/06/19 [Rx] Follow up Appointment(s)/Referral(s): Harmony Mars MD [STAFF PHYSICIAN] - 05/29/19 10:30 am (2-3 weeks, can call office for lab results) Juan Haney [Primary Care Provider] - 1-2 days (call office to set up appt.) Patient Instructions/Handouts: Pancreatitis (DC) Activity/Diet/Wound Care/Special Instructions: activity limited until follow up follow up with pcp this week follow up with GI as scheduled continue to advance diet slowly as tolerated Discharge Disposition: HOME SELF-CARE
--- NOTE | 2019-05-06 15:13 | PN ---
PROGRESS NOTE DATE OF SERVICE: 05/06/2019 The patient is a 38-year-old, pleasant, white female admitted to the hospital with acute recurrent pancreatitis. She is feeling better. Her abdominal pain has improved. Mild epigastric discomfort. On clear liquid diet yesterday, tolerating well. No new complaints. PHYSICAL EXAMINATION: Appears comfortable. VITAL SIGNS: Blood pressure 131/76, pulse rate 88, temperature 97.5. HEENT: Unremarkable. Conjunctivae are pink. Sclerae nonicteric. Oral cavity: No lesions. NECK: No JVD or lymph node enlargement. CHEST: Clear to auscultation. HEART: Regular rate and rhythm. ABDOMEN: Soft. Minimal tenderness in the epigastric area. Bowel sounds are positive. No organomegaly. EXTREMITIES: No pedal edema. SKIN: No rashes. NEUROLOGIC: Alert and oriented x3. No focal deficits. LABS: IgG 4 levels are within normal limits at 31. Basic metabolic panel from today is within normal limits. IMPRESSION: Acute recurrent pancreatitis. CT of the abdomen showing calcifications of the pancreas consistent with chronic pancreatitis. The patient had several episodes of pancreatitis in the past, doing much better, symptoms resolving, on clear liquid diet, tolerating well. So far fasting serum triglycerides are normal and IgG 4 levels are normal. RECOMMENDATIONS: 1. Advance to low-fat diet. 2. She can be discharged home today with an outpatient followup in 2 to 3 weeks. 3. Given the findings on the recent CT of the abdomen, we will consider endoscopic ultrasound of the pancreas on an outpatient basis. Thank you for this consultation. MMODL / IJN: [id number] /
== END 2019-05-06 10:59 | disposition home or self-care (01) | DRG 440 ==
LOC: EC 20:01 → 6NMEDSUR 22:55
PROVIDERS: ADMIT Hospitalist; ATTEND Hospitalist
DX: K85.00 Idiopathic acute pancreatitis without necrosis or infection (principal); K86.1 Other chronic pancreatitis; E03.9 Hypothyroidism, unspecified; E78.1 Pure hyperglyceridemia; Z71.6 Tobacco abuse counseling; F17.210 Nicotine dependence, cigarettes, uncomplicated; F41.9 Anxiety disorder, unspecified; F90.9 Attention-deficit hyperactivity disorder, unspecified type; J45.909 Unspecified asthma, uncomplicated; Z79.890 Hormone replacement therapy; Z79.899 Other long term (current) drug therapy; Z80.49 Family history of malignant neoplasm of other genital organs; Z82.49 Family history of ischemic heart disease and other diseases of the circulatory system; E55.9 Vitamin D deficiency, unspecified; Z90.49 Acquired absence of other specified parts of digestive tract
CPT/HCPCS: 36415; 74177; 80048; 80053; 80061; 80320; 81003; 82150; 82787; 83690; 85025; 85027; 94640; 96361; 96365; 96375; 96376; 99285

== ENCOUNTER 2019-09-26 09:39 | Inpatient (IN) | payer BC ==
[2019-09-26] MEDS ORDERED: SODIUM CHLORIDE 0.9% 1,000 ML IV STA (10:12)
[2019-09-26] MEDS ORDERED: MORPHINE SULFATE 4 MG/ML SYRINGE IV STA (10:12)
[2019-09-26] MEDS ORDERED: ONDANSETRON 4 MG/2 ML VIAL IVP STA (10:12)
[2019-09-26] MEDS ORDERED: HYDROmorphone 0.5 MG/0.5 ML SYRINGE IVP STA (10:39)
[2019-09-26 10:48] LABS: Basophils # (A) 0.1 k/uL (0-0.2); Basophils % (A) 1 %; Eosinophils # (A) 0.5 k/uL (0-0.7); Eosinophils % (A) 5 %; HCT 44.9 % (34.0-46.0); Lymphocytes # (A) 1.5 k/uL (1.0-4.8); Lymphocytes % (A) 16 %; MCH 32.5 pg (25.0-35.0); MCHC 33.5 g/dL (31.0-37.0); MCV 96.9 fL (80.0-100.0); Mean Platelet Volume 7.4; Monocytes # (A) 0.4 k/uL (0-1.0); Monocytes % (A) 4 %; Neutrophils # (A) 6.9 k/uL (1.3-7.7); Neutrophils % (A) 73 %; Platelet Count 260 k/uL (150-450); RBC 4.63 m/uL (3.80-5.40); RDW 13.4 % (11.5-15.5); WBC 9.5 k/uL (3.8-10.6)
--- NOTE | 2019-09-26 10:51 | ED ---
Abdominal Pain HPI <Laith Coronado - Last Filed: 09/26/19 13:02> - General Source: patient Mode of arrival: ambulatory Limitations: no limitations <Clementina Raymundo - Last Filed: 09/26/19 13:19> - General Chief Complaint: Abdominal Pain Stated Complaint: pancreas/pain Time Seen by Provider: 09/26/19 10:00 - History of Present Illness Initial Comments: Patient is a 39-year-old female presenting to emergency Department with complaints of epigastric pain with radiation into her back 2 days. She does have a history of pancreatitis and she states this feels similar. She states the pain started yesterday but has been increasing throughout the night and into today. She states she drinks alcohol on occasion, did have a glass of wine yesterday. She states the last time she had this was back in April. She denies fever or chills does admit to nausea and vomiting. She also admits to one episode of diarrhea. She admits to history of cholecystectomy, C-sections, no other abdominal surgeries. She denies chest pain or shortness of breath. She states she did not take anything for pain today. She states she is not . She has no further complaints at this time. Upon arrival to the ER, her vital signs are stable. (Clementina Raymundo) - Related Data Home Medications Medication Instructions Recorded Confirmed Levothyroxine Sodium [Synthroid] 75 mcg PO DAILY 11/18/17 09/26/19 Albuterol Sulfate [Proair Hfa] 2 puff INHALATION RT-Q4H PRN 04/03/18 09/26/19 Montelukast [Singulair] 10 mg PO DAILY 04/03/18 09/26/19 Allergies Allergy/AdvReac Type Severity Reaction Status Date / Time venom-honey bee Allergy Intermediate Swelling Verified 09/26/19 11:42 [bee venom (honey bee)] increasingly worse with each sting Review of Systems ROS Other: All systems not noted in ROS Statement are negative. <Laith Coronado - Last Filed: 09/26/19 13:02> ROS Other: All systems not noted in ROS Statement are negative. <Clementina Raymundo - Last Filed: 09/26/19 13:19> ROS Statement: Those systems with pertinent positive or pertinent negative responses have been documented in the HPI. Past Medical History Past Medical History: Asthma, Thyroid Disorder Additional Past Medical History / Comment(s): Other HX: pancreatitis, hypokalemia, hypothyroidism,anemia, vit D deficiency History of Any Multi-Drug Resistant Organisms: None Reported Past Surgical History: Section, Cholecystectomy, Orthopedic Surgery Additional Past Surgical History / Comment(s): R foot injury-Sx repair,c-sect x 2 Past Anesthesia/Blood Transfusion Reactions: No Reported Reaction Additional Past Anesthesia/Blood Transfusion Reaction / Comment(s): Pt states she has never recieved blood,took awhile to come out of anesthesia with foot surg. Past Psychological History: ADD/ADHD, Anxiety Smoking Status: Current every day smoker Past Alcohol Use History: Occasional Past Drug Use History: Marijuana - Past Family History Father Family Medical History: Congestive Heart Failure (CHF) Additional Family Medical History / Comment(s): Father has a pacer. Mother Family Medical History: Cancer Additional Family Medical History / Comment(s): Mother had uterine cancer. She is 59 yrs old. <Clementina Raymundo L - Last Filed: 09/26/19 13:19> General Exam Limitations: no limitations <Clementina Raymundo L - Last Filed: 09/26/19 13:19> - General Exam Comments Initial Comments: GENERAL: Patient is well-developed and well-nourished. Patient is nontoxic and in mild distress. HEAD: Atraumatic, normocephalic. EYES: Pupils equal round and reactive to light, extraocular movements intact, sclera anicteric, conjunctiva are normal. Eyelids were unremarkable. ENT: TMs normal, nares patent, oropharynx clear without exudates. Moist mucous membranes. NECK: Normal range of motion, supple without lymphadenopathy or JVD. LUNGS: Unlabored respirations. Breath sounds clear to auscultation bilaterally and equal. No wheezes rales or rhonchi. HEART: Regular rate and rhythm without murmurs, rubs or gallops. ABDOMEN: Patient has pain to palpation in epigastric and right and left upper quadrants. Soft, normoactive bowel sounds. No guarding, no rebound. No masses appreciated. : Deferred MUSCULOSKELETAL: Normal extremities with adequate strength and normal range of motion, no pitting or edema. No clubbing or cyanosis. NEUROLOGICAL: Patient is alert and oriented x 3. Motor and sensory are also intact. Cranial nerves II through XII grossly intact. Symmetrical smile. Normal speech, normal gait. PSYCH: Normal mood, normal affect. SKIN: Warm, Dry, normal turgor, no rashes or lesions noted. (Clementina Raymundo) Course Vital Signs 09/26/19 09/26/19 09:48 11:54 Temperature 98.3 F 97.2 F L Pulse Rate 82 63 Respiratory 18 18 Rate Blood Pressure 150/88 126/86 O2 Sat by Pulse 98 98 Oximetry Medical Decision Making - Lab Data Result diagrams: 09/26/19 10:30 09/26/19 10:30 <Laith Coronado - Last Filed: 09/26/19 13:02> - Lab Data Result diagrams: 09/26/19 10:30 09/26/19 10:30 <Clementina Raymundo - Last Filed: 09/26/19 13:19> - Medical Decision Making Patient reevaluated and reexamined by myself, Dr. Coronado. Patient resting comfortably bed with mild abdominal discomfort in the epigastric region. I agree. Findings. This includes diagnostic interpretation and treatment plan. [facility] physician group has been paged for admission. Case was discussed with Dr. Alegria, who will admit covering for Dr. Castelan. (Laith Coronado) Patient is a 39-year-old female here for epigastric pain with radiation into the back 2 days. She does have history of pancreatitis, last admission was in April. Her vital signs are stable, afebrile. Lab work shows a normal white count, lactic acid is 1.6, amylase is 1394, lipase is almost 15,000. CT does show signs for acute pancreatitis without complicating factors such as a cyst or abscess. Of note there is also a masslike fullness of the cervix, recommend pelvic ultrasound. Patient states she is not having any pelvic pain or discomfort, does admit to occasional vaginal bleeding. She states she knows she has to follow-up with [facility], but has not yet. Patient has been given fluids and pain control. She is stable at this time. Patient will be admitted for acute pancreatitis. is accepting. Will continue with fluids, pain control. Case discussed with Dr. Coronado. (Clementina Raymundo) - Lab Data Lab Results 08/21/20 08/21/20 08/21/20 Range/Units 10:30 10:30 10:30 WBC 9.5 (3.8-10.6) k/uL RBC 4.63 (3.80-5.40) m/uL Hgb 15.0 (11.4-16.0) gm/dL Hct 44.9 (34.0-46.0) % MCV 96.9 (80.0-100.0) fL MCH 32.5 (25.0-35.0) pg MCHC 33.5 (31.0-37.0) g/dL RDW 13.4 (11.5-15.5) % Plt Count 260 (150-450) k/uL Neutrophils % 73 % Lymphocytes % 16 % Monocytes % 4 % Eosinophils % 5 % Basophils % 1 % Neutrophils # 6.9 (1.3-7.7) k/uL Lymphocytes # 1.5 (1.0-4.8) k/uL Monocytes # 0.4 (0-1.0) k/uL Eosinophils # 0.5 (0-0.7) k/uL Basophils # 0.1 (0-0.2) k/uL PT 9.4 (9.0-12.0) sec INR 0.9 (<1.2) APTT 24.2 (22.0-30.0) sec Sodium (137-145) mmol/L Potassium (3.5-5.1) mmol/L Chloride (98-107) mmol/L Carbon Dioxide (22-30) mmol/L Anion Gap mmol/L BUN (7-17) mg/dL Creatinine (0.52-1.04) mg/dL Est GFR (CKD-EPI)AfAm (>60 ml/min/1.73 sqM) Est GFR (CKD-EPI)NonAf (>60 ml/min/1.73 sqM) Glucose (74-99) mg/dL Plasma Lactic Acid Tyree (0.7-2.0) mmol/L Calcium (8.4-10.2) mg/dL Total Bilirubin (0.2-1.3) mg/dL AST (14-36) U/L ALT (4-34) U/L Alkaline Phosphatase (38-126) U/L Total Protein (6.3-8.2) g/dL Albumin (3.5-5.0) g/dL Amylase (30-110) U/L Lipase (23-300) U/L Urine Color Yellow Urine Appearance Cloudy H (Clear) Urine pH 5.5 (5.0-8.0) Ur Specific [place] 1.031 (1.001-1.035) Urine Protein 1+ H (Negative) Urine Glucose (UA) Negative (Negative) Urine Ketones 1+ H (Negative) Urine Blood Large H (Negative) Urine Nitrite Negative (Negative) Urine Bilirubin Negative (Negative) Urine Urobilinogen 2.0 (<2.0) mg/dL Ur Leukocyte Esterase Negative (Negative) Urine RBC 22 H (0-5) /hpf Urine WBC 3 (0-5) /hpf Ur Squamous Epith Cells 15 H (0-4) /hpf Urine Bacteria Rare H (None) /hpf Urine Mucus Few H (None) /hpf Urine HCG, Qual (Not Detectd) 09/26/19 09/26/19 09/26/19 Range/Units 10:30 10:30 10:30 WBC (3.8-10.6) k/uL RBC (3.80-5.40) m/uL Hgb (11.4-16.0) gm/dL Hct (34.0-46.0) % MCV (80.0-100.0) fL MCH (25.0-35.0) pg MCHC (31.0-37.0) g/dL RDW (11.5-15.5) % Plt Count (150-450) k/uL Neutrophils % % Lymphocytes % % Monocytes % % Eosinophils % % Basophils % % Neutrophils # (1.3-7.7) k/uL Lymphocytes # (1.0-4.8) k/uL Monocytes # (0-1.0) k/uL Eosinophils # (0-0.7) k/uL Basophils # (0-0.2) k/uL PT (9.0-12.0) sec INR (<1.2) APTT (22.0-30.0) sec Sodium 138 (137-145) mmol/L Potassium 3.8 (3.5-5.1) mmol/L Chloride 105 (98-107) mmol/L Carbon Dioxide 22 (22-30) mmol/L Anion Gap 11 mmol/L BUN 14 (7-17) mg/dL Creatinine 0.65 (0.52-1.04) mg/dL Est GFR (CKD-EPI)AfAm >90 (>60 ml/min/1.73 sqM) Est GFR (CKD-EPI)NonAf >90 (>60 ml/min/1.73 sqM) Glucose 152 H (74-99) mg/dL Plasma Lactic Acid Tyree 1.6 (0.7-2.0) mmol/L Calcium 9.7 (8.4-10.2) mg/dL Total Bilirubin 0.8 (0.2-1.3) mg/dL AST 24 (14-36) U/L ALT 20 (4-34) U/L Alkaline Phosphatase 73 (38-126) U/L Total Protein 7.3 (6.3-8.2) g/dL Albumin 4.7 (3.5-5.0) g/dL Amylase 1394 H* (30-110) U/L Lipase 56970 H (23-300) U/L Urine Color Urine Appearance (Clear) Urine pH (5.0-8.0) Ur Specific [place] (1.001-1.035) Urine Protein (Negative) Urine Glucose (UA) (Negative) Urine Ketones (Negative) Urine Blood (Negative) Urine Nitrite (Negative) Urine Bilirubin (Negative) Urine Urobilinogen (<2.0) mg/dL Ur Leukocyte Esterase (Negative) Urine RBC (0-5) /hpf Urine WBC (0-5) /hpf Ur Squamous Epith Cells (0-4) /hpf Urine Bacteria (None) /hpf Urine Mucus (None) /hpf Urine HCG, Qual Not Detected (Not Detectd) Disposition <Laith Coronado - Last Filed: 09/26/19 13:02> Decision Date: 09/26/19 Decision Time: 12:56 <Clementina Raymundo - Last Filed: 09/26/19 13:19> Clinical Impression: Acute pancreatitis, Epigastric abdominal pain Disposition: ADMITTED IP TO THIS [facility] Condition: Stable Referrals: Juan Haney [Primary Care Provider] - 1-2 days
[2019-09-26 10:58] LABS: INR 0.9 (<1.2); Partial Thromboplastin Time 24.2 sec (22.0-30.0); Prothrombin Time 9.4 sec (9.0-12.0)
[2019-09-26 10:59] LABS: Appearance,Urine Cloudy (Clear); Bacteria,Urine Rare /hpf; Bilirubin,Urine Negative (Negative); Blood,Urine Large (Negative); Color,Urine Yellow; Glucose,Urine (UA) Negative (Negative); Ketones,Urine 1+ (Negative); Leukocyte Esterase,Urine Negative (Negative); Mucus,Urine Few /hpf; Nitrite,Urine Negative (Negative); PH, Urine 5.5 (5.0-8.0); Protein,Urine 1+ (Negative); RBC,Urine 22 /hpf (0-5); Specific Gravity,Urine 1.031 (1.001-1.035); Squamous Epithelial Cell,Urine 15 /hpf (0-4); WBC,Urine 3 /hpf (0-5)
[2019-09-26 11:02] LABS: ALT 20 U/L (4-34); AST 24 U/L (14-36); African American GFR (CKD) >90 (>60 ml/min/1.73 sqM); Albumin 4.7 g/dL (3.5-5.0); Alkaline Phosphatase 73 U/L (38-126); Anion Gap 11 mmol/L; Blood Urea Nitrogen 14 mg/dL (7-17); Calcium 9.7 mg/dL (8.4-10.2); Carbon Dioxide 22 mmol/L (22-30); Chloride 105 mmol/L (98-107); Glucose 152 mg/dL (74-99); Non-African American GFR(CKD) >90 (>60 ml/min/1.73 sqM); Potassium 3.8 mmol/L (3.5-5.1); Sodium 138 mmol/L (137-145); Total Bilirubin 0.8 mg/dL (0.2-1.3); Total Protein 7.3 g/dL (6.3-8.2)
[2019-09-26 11:25] LABS: Amylase 1394 U/L (30-110)
--- NOTE | 2019-09-26 11:29 | CT ---
EXAMINATION TYPE: CT abdomen pelvis w con DATE OF EXAM: 09/26/2019 COMPARISON: 05/03/2019 HISTORY: Epigastric pain, history of pancreatitis CT DLP: 1852.1 mGycm CONTRAST: CT scan of the abdomen and pelvis is performed without Oral Contrast and with IV Contrast, patient in jected with 100 mL of Isovue 300. FINDINGS: LUNG BASES-: No visible nodule. No infiltrate. LIVER/GB: The gallbladder surgically absent. Mild fatty liver. No space occupying hepatic lesion. Biliary tree is of normal caliber. PANCREAS: There is peripancreatic inflammatory change noted compatible with pancreatitis. Focal calci fications noted within the pancreatic head compatible with chronic pancreatitis component. There is m ild prominence of the pancreatic duct. SPLEEN: No splenic enlargement. No lesion seen. ADRENALS: No nodule. No thickening. KIDNEYS/BLADDER: No hydronephrosis. No nephrolithiasis. No distinct renal mass. Urinary bladder g rossly unremarkable. BOWEL: Normal appendix. Normal bowel caliber. No inflammation. GENITAL ORGANS: Masslike fullness of the cervix. Ultrasound correlation and clinical correlation adv ised. Suspicion for underlying leiomyomatous change on the uterus and fundus. No ovarian masses seen. LYMPH NODES: No greater than 1cm abdominal or pelvic lymph nodes are appreciated. AORTA: No significant abnormality. OSSEOUS STRUCTURES: No significant abnormality is seen. OTHER: No significant additional abnormality is seen. IMPRESSION: 1. Acute pancreatitis without complicating factors such as pseudocyst or abscess. 2. Mild fatty liver. 3. Masslike fullness of the cervix. Clinical correlation and pelvic ultrasound is advised.
[2019-09-26] MEDS ORDERED: HYDROmorphone 1 MG/ML 1 ML SYRINGE IVP STA (12:47)
[2019-09-26] MEDS ORDERED: HYDROmorphone 0.5 MG/0.5 ML SYRINGE IVP PRN (12:54)
[2019-09-26] MEDS ORDERED: HYDROmorphone 1 MG/ML 1 ML SYRINGE IVP PRN (12:54)
[2019-09-26] MEDS ORDERED: ONDANSETRON 4 MG/2 ML VIAL IVP PRN (12:54)
[2019-09-26] MEDS ORDERED: NALOXONE 0.4 MG/ML 1 ML VIAL IV PRN (12:54)
[2019-09-26] MEDS: SODIUM CHLORIDE 0.9% 1,000 ML IV SCH (13:54)
--- NOTE | 2019-09-26 16:34 | P.HPIM ---
History of Present Illness H&P Date: 09/26/19 Chief Complaint: Pancreatitis 39-year-old female with PMH of pancreatitis, and asthma presents the ED for epigastric pain. Patient reports epigastric discomfort that radiates to the back that started last night that has been progressively getting worse into this morning. Pain is 10 out of 10 in severity. She describes the pain as stabbing in nature. Pain was associated with multiple episodes of vomiting this morning. She reports decreased appetite. She reports one episode of nonbloody diarrhea this morning. These constellation of symptoms prompted her to come to the ED. She had one glass of wine last night and is not a daily drinker. She denies any headache, lower extremity edema, fever or chills, cough, chest pain, shortness of breath, palpitations, changes in urination. She denies any dizziness, numbness/weakness/tingling of the extremities. In the ED, her vital signs were stable except for mildly elevated blood pressure. CBC was unremarkable. CMP showed glucose of 152. Amylase was 1349. Lipase was 14,632. Urinalysis showed large blood. CT abdomen and pelvis showed acute pancreatitis and masslike fullness of the cervix. Patient is admitted for pancreatitis with GI on consult. Review of Systems Pertinent positives and negatives as discussed in HPI, a complete review of systems was performed and all other systems are negative. Past Medical History Past Medical History: Asthma, Thyroid Disorder Additional Past Medical History / Comment(s): Other HX: pancreatitis, hypokalemia, hypothyroidism, Anemia, vit D deficiency History of Any Multi-Drug Resistant Organisms: None Reported Past Surgical History: Section, Cholecystectomy, Orthopedic Surgery Additional Past Surgical History / Comment(s): RIGHT foot injury-Sx repair,c-sec t x 2 Past Anesthesia/Blood Transfusion Reactions: No Reported Reaction Additional Past Anesthesia/Blood Transfusion Reaction / Comment(s): Pt states she has never recieved blood,took awhile to come out of anesthesia with foot surg. Past Psychological History: ADD/ADHD, Anxiety Additional Psychological History / Comment(s): Pt resides with her spouse and children. She is independent. She drives. Homemaker Smoking Status: Current every day smoker Past Alcohol Use History: Occasional Additional Past Alcohol Use History / Comment(s): Pt states she started smoking at age 17yrs and is alittle less than a ppd smoker. Pt states she drinks less than 7 drinks per week. Past Drug Use History: Marijuana Additional Drug Use History / Comment(s): Pt smokes marijuana occasionally. - Past Family History Father Family Medical History: Congestive Heart Failure (CHF) Additional Family Medical History / Comment(s): Father has a pacer. Mother Family Medical History: Cancer Additional Family Medical History / Comment(s): Mother had uterine cancer. She is 59 yrs old. Medications and Allergies Home Medications Medication Instructions Recorded Confirmed Type Levothyroxine Sodium [Synthroid] 75 mcg PO DAILY 11/18/17 09/26/19 History Albuterol Sulfate [Proair Hfa] 2 puff INHALATION RT-Q4H PRN 04/03/18 09/26/19 History Montelukast [Singulair] 10 mg PO DAILY 04/03/18 09/26/19 History Allergies Allergy/AdvReac Type Severity Reaction Status Date / Time venom-honey bee Allergy Intermediate Swelling Verified 09/26/19 11:42 [bee venom (honey bee)] increasingly worse with each sting Physical Exam Vitals: Vital Signs Temp Pulse Pulse Resp BP BP Pulse Ox 09/26/19 14:00 98.0 F 84 16 134/77 99 09/26/19 11:54 97.2 F L 63 18 126/86 98 09/26/19 09:48 98.3 F 82 18 150/88 98 Intake and Output 09/26/19 09/26/19 09/26/19 06:59 14:59 22:59 Other: # Voids 1 Weight 92.941 kg General: [non toxic], [no distress], [appears at stated age] Derm: [warm], [dry] Head: [atraumatic], [normocephalic], [symmetric] Eyes: [EOMI], [no lid lag], [anicteric sclera] Mouth: [no lip lesion], [mucus membranes moist] Cardiovascular: [S1S2 reg], [no murmur], [positive posterior tibial pulse bilateral], Lungs: [CTA bilateral], [no rhonchi, no rales] , [no accessory muscle use] Abdominal: [soft], [tenderness to palpation without rebound in all 4 quadrants], [no guarding], [no appreciable organomegaly] Ext: [no gross muscle atrophy], [no edema], [no contractures] Neuro: [ CN II-XI grossly intact], [no focal neuro deficits] Psych: [Alert], [oriented], [appropriate affect] Results CBC & Chem 7: 09/26/19 10:30 09/26/19 10:30 Labs: Abnormal Lab Results - Last 24 Hours (Table) 09/26/19 09/26/19 Range/Units 10:30 10:30 Glucose 152 H (74-99) mg/dL Amylase 1394 H* (30-110) U/L Lipase 53933 H (23-300) U/L Urine Appearance Cloudy H (Clear) Urine Protein 1+ H (Negative) Urine Ketones 1+ H (Negative) Urine Blood Large H (Negative) Urine RBC 22 H (0-5) /hpf Ur Squamous Epith Cells 15 H (0-4) /hpf Urine Bacteria Rare H (None) /hpf Urine Mucus Few H (None) /hpf Thrombosis Risk Factor Assmnt - Choose All That Apply Each Factor Represents 1 point: Obesity (BMI >25) Thrombosis Risk Factor Assessment Total Risk Factor Score: 1 Thrombosis Risk Factor Assessment Level: Low Risk Assessment and Plan Assessment: Acute pancreatitis Cervix abnormality seen on CT Hyperglycemia Asthma Hypothyroidism Patient is admitted for acute pancreatitis. This is apparent on CT along with elevated amylase and lipase. She will be kept nothing by mouth. Pain control with Toradol or Dilaudid as needed. Continue normal saline at 75 mL per hour. Zofran as needed for nausea or vomiting. Repeat amylase and lipase tomorrow morning. Follow GI consultation. As seen on CT abdomen and pelvis. We will need to obtain pelvic ultrasound at some point during this admission. Follow A1c. Albuterol neb as needed for shortness of breath or wheezing. Not in acute exacerbation. Restart Synthroid. DVT prophylaxis: [Heparin] Discussed with: [Patient] Anticipated discharge: [2-3 days] Anticipated discharge place: [Home] A total of [45] minutes was spent on the care of this complex patient more than 50% of the time was spent in counseling and care coordination. Patient names her decision maker if she can't make decisions for herself. Patient would like to be full code.
[2019-09-26] MEDS: KETOROLAC 15 MG/ML 1 ML VIAL IVP PRN ×2 (16:43→23:13)
[2019-09-26] MEDS: HYDROmorphone 1 MG/ML 1 ML SYRINGE IVP PRN ×3 (17:56→22:20)
[2019-09-26] MEDS: HEPARIN SODIUM,PORCINE 5,000 UNIT/ML 1 ML VIAL SQ SCH (20:18)
--- NOTE | 2019-09-26 23:01 | CONS ---
CONSULTATION DATE OF DICTATION: 09/26/2019 REASON FOR CONSULTATION: Acute recurrent pancreatitis. HISTORY OF PRESENT ILLNESS: The patient is a 39-year-old pleasant white female who came into the emergency room complaining of severe epigastric pain that started yesterday morning. She had several episodes of nausea, vomiting. Pain continued to progressively get worse. She came into the emergency room and was noted to have elevated lipase consistent with acute pancreatitis. She was admitted to the hospital in April of this year for the same reason. She had at least 5 or 6 episodes of pancreatitis over the years. She has history of occasional alcohol use. During her last hospitalization she did have workup for other etiologies. IgG4 levels were normal. Fasting triglycerides were 254. The patient usually drinks 2 glasses of wine on a weekly basis. PAST MEDICAL HISTORY: Acute recurrent pancreatitis, hypothyroidism, asthma. PAST SURGICAL HISTORY: Gallbladder surgery that was done during one of the episodes of pancreatitis. MEDICATIONS: Medications at home include Synthroid, Singulair and ProAir. ALLERGIES: BEE VENOM. SOCIAL HISTORY: No smoking. Occasional alcohol use. She does have a remote history of alcohol use almost on a daily basis, which was about 5 or 6 years ago. REVIEW OF SYSTEMS: CARDIOPULMONARY: No chest pain or shortness of breath. GENITOURINARY: No dysuria or hematuria. MUSCULOSKELETAL: Unremarkable. SKIN: Unremarkable. ENDOCRINE: Unremarkable. PSYCHIATRIC: Unremarkable. NEUROLOGY: Unremarkable. ENT/VISION: Unremarkable. CONSTITUTIONAL: No recent weight loss. No fever, chills, night sweats. PHYSICAL EXAMINATION: Blood pressure 134/77, pulse rate 84, temperature 98. HEENT examination unremarkable. Conjunctivae pink. Sclerae anicteric. Oral cavity no lesions. NECK: No JVD or lymph node enlargement. CHEST: Clear to auscultation. HEART: Regular rate and rhythm. ABDOMEN: Soft. Bowel sounds are positive. Mild tenderness in the epigastric area. EXTREMITIES: No pedal edema. SKIN: No rashes. NEUROLOGIC: Alert and oriented x3. No focal deficits. LABS: WBC 9.5, hemoglobin 15, platelets normal. Basic metabolic panel is within normal limits. Amylase 1394, lipase is 14,632. AST, ALT, T-bilirubin, alkaline phosphatase are within normal limits. CT of the abdomen and pelvis done yesterday showed evidence of mild fatty liver, peripancreatic inflammatory changes consistent with acute pancreatitis. Focal calcification was noted in the pancreatic head consistent with chronic pancreatitis. Mild prominence of the pancreatic duct. IMPRESSION: Acute recurrent pancreatitis, this being the fifth or sixth episode. She has remote history of alcohol use but currently drinks only one glass of wine every other day. She has significant elevation of amylase and lipase consistent with acute pancreatitis. CT scan of the abdomen did show mild focal calcifications within the pancreatic head compatible with chronic pancreatitis. It appears the etiology is remote history of alcohol use, but other causes cannot be excluded. During her last hospitalization, serum IgG4 levels were done which were normal. Triglyceride levels were normal. RECOMMENDATIONS: 1. Continue with symptomatic and supportive care. 2. Clear liquid diet. 3. N.p.o. except ice chips today. 4. Aggressive IV hydration. 5. Repeat labs in the morning. 6. If she is better, will start her on a clear liquid diet. 7. Will follow with you closely. Thank you for this consultation. MMODL / IJN: [id number] /
[2019-09-27] MEDS: HYDROmorphone 1 MG/ML 1 ML SYRINGE IVP PRN ×9 (00:30→21:46)
[2019-09-27] MEDS: SODIUM CHLORIDE 0.9% 1,000 ML IV SCH ×3 (04:40→21:49)
[2019-09-27] MEDS: KETOROLAC 15 MG/ML 1 ML VIAL IVP PRN ×4 (05:12→23:31)
[2019-09-27] MEDS: LEVOTHYROXINE 75 MCG TAB PO SCH (06:48)
[2019-09-27 07:47] LABS: Basophils % (A) 1 %; Eosinophils # (A) 0.4 k/uL (0-0.7); Eosinophils % (A) 5 %; HCT 40.3 % (34.0-46.0); HGB 13.3 gm/dL (11.4-16.0); Lymphocytes # (A) 0.9 k/uL (1.0-4.8); Lymphocytes % (A) 11 %; MCH 32.3 pg (25.0-35.0); MCHC 32.9 g/dL (31.0-37.0); MCV 98.2 fL (80.0-100.0); Mean Platelet Volume 7.2; Monocytes # (A) 0.3 k/uL (0-1.0); Monocytes % (A) 4 %; Neutrophils # (A) 6.1 k/uL (1.3-7.7); Neutrophils % (A) 78 %; Platelet Count 181 k/uL (150-450); RBC 4.11 m/uL (3.80-5.40); RDW 13.4 % (11.5-15.5); WBC 7.9 k/uL (3.8-10.6)
[2019-09-27 07:52] LABS: ALT 19 U/L (4-34); AST 24 U/L (14-36); African American GFR (CKD) >90 (>60 ml/min/1.73 sqM); Albumin 3.7 g/dL (3.5-5.0); Alkaline Phosphatase 57 U/L (38-126); Anion Gap 6 mmol/L; Blood Urea Nitrogen 6 mg/dL (7-17); Calcium 8.2 mg/dL (8.4-10.2); Carbon Dioxide 25 mmol/L (22-30); Chloride 105 mmol/L (98-107); Glucose 97 mg/dL (74-99); Magnesium 1.8 mg/dL (1.6-2.3); Non-African American GFR(CKD) >90 (>60 ml/min/1.73 sqM); Potassium 3.7 mmol/L (3.5-5.1); Sodium 136 mmol/L (137-145); Total Bilirubin 0.7 mg/dL (0.2-1.3)
[2019-09-27 08:06] LABS: Amylase 1418 U/L (30-110)
[2019-09-27] MEDS: MONTELUKAST 10 MG TAB PO SCH (08:45)
[2019-09-27] MEDS: HEPARIN SODIUM,PORCINE 5,000 UNIT/ML 1 ML VIAL SQ SCH ×2 (08:50→20:39)
[2019-09-27] MEDS ORDERED: HYDROmorphone 1 MG/ML 1 ML SYRINGE IVP STA (10:05)
[2019-09-27] MEDS: NICOTINE 14MG/24HR PATCH TRANSDERM SCH (10:29)
--- NOTE | 2019-09-27 11:56 | P.PN ---
Subjective Progress Note Date: 09/27/19 Patient was seen and examined. No acute events overnight. Patient continues to report epigastric discomfort, 10 out of 10 in severity, unchanged from yesterday. No nausea or vomiting. No fever or chills. No chest pain, shortness breath or palpitations. States that Dilaudid works for 1 - 1 1/2 hours before the pain becomes excruciating again. Objective - Vital Signs Vital signs: Vital Signs Temp 97.5 F L 09/27/19 07:27 Pulse 82 09/27/19 07:27 Resp 18 09/27/19 07:27 BP 132/88 09/27/19 07:27 Pulse Ox 95 09/27/19 07:27 Intake & Output 09/26/19 09/27/19 09/27/19 18:59 06:59 18:59 Intake Total 600 Balance 600 Weight 92.941 kg Intake: Intake, IV Titration 600 Amount Sodium Chloride 0.9% 1, 600 000 ml @ 75 mls/hr IV . [id number] [facility] Rx#:[id number] Oral 0 Other: # Voids 1 1 - Exam General: [non toxic], [mild distress], [appears at stated age] Derm: [warm], [dry] Head: [atraumatic], [normocephalic], [symmetric] Eyes: [EOMI], [no lid lag], [anicteric sclera] Mouth: [no lip lesion], [mucus membranes moist] Cardiovascular: [S1S2 reg], [no murmur], [positive posterior tibial pulse bilateral], Lungs: [CTA bilateral], [no rhonchi, no rales] , [no accessory muscle use] Abdominal: [soft], [tenderness to palpation without rebound in all 4 quadrants worse in the epigastric area], [no guarding], [no appreciable organomegaly] Ext: [no gross muscle atrophy], [no edema], [no contractures] Neuro: [no focal neuro deficits] Psych: [Alert], [oriented], [appropriate affect] - Labs CBC & Chem 7: 09/27/19 07:10 09/27/19 07:10 Labs: Abnormal Lab Results - Last 24 Hours (Table) 09/27/19 09/27/19 Range/Units 07:10 07:10 Lymphocytes # 0.9 L (1.0-4.8) k/uL Sodium 136 L (137-145) mmol/L BUN 6 L (7-17) mg/dL Calcium 8.2 L (8.4-10.2) mg/dL Total Protein 6.0 L (6.3-8.2) g/dL Amylase 1418 H* (30-110) U/L Lipase 81442 H (23-300) U/L Assessment and Plan Assessment: Acute pancreatitis Smoker Cervix abnormality seen on CT Hyperglycemia Asthma Hypothyroidism Patient is admitted for acute pancreatitis. This is apparent on CT along with elevated amylase and lipase. She will be kept nothing by mouth. Pain control with Toradol or Dilaudid as needed. One-time dose of Dilaudid 2 mg IV stat. Continue normal saline at 75 mL per hour. Zofran as needed for nausea or vomiting. Repeat amylase and lipase tomorrow morning. Follow GI consultation. Add nicotine patch. As seen on CT abdomen and pelvis. We will need to obtain pelvic ultrasound at some point during this admission. Follow A1c. Albuterol neb as needed for shortness of breath or wheezing. Not in acute exacerbation. Restart Synthroid. [Patient admitted for acute pancreatitis. Continues to be an epigastric pain. Continues to be nothing by mouth. Continue IV pain control. She is pending clinical improvement. Likely DC in 2-3 days.]
--- NOTE | 2019-09-27 12:49 | PN ---
PROGRESS NOTE DATE OF SERVICE: 09/27/2019 INTERVAL HISTORY: Patient is a 39-year-old pleasant white female admitted to the hospital with acute recurrent pancreatitis. Has remote history of alcohol abuse which she quit drinking a few years ago. She consumes alcohol on a social basis. She came to the hospital yesterday with severe abdominal pain and acute pancreatitis. She states that all night she had severe pain. This morning she is feeling a little bit better. Labs from today showed an amylase of 1418 and lipase is 11,167. ALT, AST, T bilirubin, and alkaline phosphatase are within normal limits. PHYSICAL EXAMINATION: Appears slightly uncomfortable. VITAL SIGNS: Blood pressure 132/88, pulse 82, temperature 97.5. HEENT: Examination unremarkable. Conjunctivae are pink. Sclerae anicteric. Oral cavity no lesions. NECK: No JVD or lymph node enlargement. CHEST: Clear to auscultation. HEART: Regular rate and rhythm. ABDOMEN: Soft. There was severe tenderness in the epigastric area. EXTREMITIES: No pedal edema. SKIN: No rashes. NEUROLOGIC: Alert and oriented x3. No focal deficits. LABS: From today WBC 7.9, hemoglobin 13.3, platelets normal. Basic metabolic panel is within normal limits. Amylase is elevated at 1418 and lipase is 11,167. IMPRESSION: 1. Acute recurrent pancreatitis in this lady who has remote history of alcohol abuse. She quit drinking and consumes only on a social basis. She had at least 5 episodes of acute pancreatitis, the last one was in April of this year. CT scan did show evidence of focal calcifications in the head of the pancreas consistent with chronic pancreatitis. Most likely this is related to alcohol abuse in the past. 2. Persistent epigastric pain from ongoing pancreatitis. RECOMMENDATIONS: 1. Keep her n.p.o. for today. 2. Pain medications as needed. 3. Aggressive IV hydration. 4. IV Protonix. 5. Repeat labs in the morning. 6. We will follow with you closely. Thank you for this consultation. MMODL / IJN: [id number] /
[2019-09-27] MEDS: ACETAMINOPHEN TAB 325 MG TAB PO PRN (20:38)
[2019-09-28] MEDS: HYDROmorphone 1 MG/ML 1 ML SYRINGE IVP PRN ×8 (01:20→23:31)
[2019-09-28] MEDS: SODIUM CHLORIDE 0.9% 1,000 ML IV SCH ×3 (04:10→19:47)
[2019-09-28] MEDS: LEVOTHYROXINE 75 MCG TAB PO SCH (05:53)
[2019-09-28] MEDS: KETOROLAC 15 MG/ML 1 ML VIAL IVP PRN ×4 (05:59→19:46)
[2019-09-28] MEDS: NICOTINE 14MG/24HR PATCH TRANSDERM SCH (07:31)
[2019-09-28] MEDS: HEPARIN SODIUM,PORCINE 5,000 UNIT/ML 1 ML VIAL SQ SCH ×2 (07:31→20:29)
[2019-09-28 08:52] LABS: HCT 34.9 % (34.0-46.0); HGB 11.6 gm/dL (11.4-16.0); MCH 32.5 pg (25.0-35.0); MCHC 33.2 g/dL (31.0-37.0); Mean Platelet Volume 8.9; Platelet Count 170 k/uL (150-450); RBC 3.57 m/uL (3.80-5.40); RDW 13.4 % (11.5-15.5); WBC 7.6 k/uL (3.8-10.6)
[2019-09-28] MEDS: MONTELUKAST 10 MG TAB PO SCH (09:02)
[2019-09-28] MEDS: PANTOPRAZOLE 40 MG/10 ML VIAL IVP SCH ×2 (09:02→20:29)
[2019-09-28 09:07] LABS: ALT 16 U/L (4-34); AST 20 U/L (14-36); African American GFR (CKD) >90 (>60 ml/min/1.73 sqM); Albumin 3.4 g/dL (3.5-5.0); Alkaline Phosphatase 54 U/L (38-126); Anion Gap 9 mmol/L; Blood Urea Nitrogen 2 mg/dL (7-17); Calcium 7.8 mg/dL (8.4-10.2); Carbon Dioxide 23 mmol/L (22-30); Chloride 104 mmol/L (98-107); Glucose 77 mg/dL (74-99); Non-African American GFR(CKD) >90 (>60 ml/min/1.73 sqM); Potassium 3.2 mmol/L (3.5-5.1); Sodium 136 mmol/L (137-145); Total Bilirubin 0.6 mg/dL (0.2-1.3); Total Protein 5.7 g/dL (6.3-8.2)
[2019-09-28 09:18] LABS: Amylase 507 U/L (30-110)
[2019-09-28] MEDS ORDERED: Potassium Replacement Protocol 1 EACH MISC MISCELLANE PRN (10:55)
[2019-09-28] MEDS: POTASSIUM CHLORIDE ER 20 MEQ TAB.ER PO SCH ×2 (11:13→12:15)
[2019-09-28] MEDS: ACETAMINOPHEN TAB 325 MG TAB PO PRN (11:13)
--- NOTE | 2019-09-28 11:55 | P.PN ---
Subjective Progress Note Date: 09/28/19 Patient was seen and examined. No acute events overnight. Patient continues to report epigastric discomfort, slightly improved from yesterday. One episode of bilious vomiting today. No fever or chills. No chest pain, shortness breath or palpitations. Dilaudid dose changed to 2 mg every 3 hours as needed yesterday. States the pain is controlled for about 2 hours before it becomes 10 out of 10 excruciating pain again. Patient also reports vaginal spotting and changes in her menstrual cycle over the past year. She is underwent Pap smear without any detection of cervical cancer her HPV. She reports family history of endometrial and ovarian and breast cancer. Her last mammogram was 5 years ago normal according to patient. Objective - Vital Signs Vital signs: Vital Signs Temp 98.7 F 09/28/19 07:18 Pulse 94 09/28/19 07:18 Resp 18 09/28/19 07:18 BP 118/81 09/28/19 07:18 Pulse Ox 98 09/28/19 07:18 Intake & Output 09/27/19 09/28/19 09/28/19 18:59 06:59 18:59 Other: Voiding Method Toilet # Voids 3 3 # Emeses 1 - Exam General: [non toxic], [mild distress], [appears at stated age] Derm: [warm], [dry] Head: [atraumatic], [normocephalic], [symmetric] Eyes: [EOMI], [no lid lag], [anicteric sclera] Mouth: [no lip lesion], [mucus membranes moist] Cardiovascular: [S1S2 reg], [no murmur], [positive posterior tibial pulse bilateral], Lungs: [CTA bilateral], [no rhonchi, no rales] , [no accessory muscle use] Abdominal: [soft], [tenderness to palpation without rebound in all 4 quadrants worse in the epigastric area], [no guarding], [no appreciable organomegaly] Ext: [no gross muscle atrophy], [no edema], [no contractures] Neuro: [no focal neuro deficits] Psych: [Alert], [oriented], [appropriate affect] - Labs CBC & Chem 7: 09/28/19 08:42 09/28/19 08:42 Labs: Abnormal Lab Results - Last 24 Hours (Table) 09/28/19 09/28/19 Range/Units 08:42 08:42 RBC 3.57 L (3.80-5.40) m/uL Sodium 136 L (137-145) mmol/L Potassium 3.2 L (3.5-5.1) mmol/L BUN 2 L (7-17) mg/dL Calcium 7.8 L (8.4-10.2) mg/dL Total Protein 5.7 L (6.3-8.2) g/dL Albumin 3.4 L (3.5-5.0) g/dL Amylase 507 H* (30-110) U/L Lipase 2736 H (23-300) U/L Assessment and Plan Assessment: Acute pancreatitis Hypokalemia Smoker Cervix abnormality seen on CT Hyperglycemia Asthma Hypothyroidism Patient is admitted for acute pancreatitis. This is apparent on CT along with elevated amylase and lipase. She will be kept nothing by mouth. Continue Dilaudid 2 mg IV every 3 hours as needed with Toradol 15 mg every 3 hours as needed. Continue normal saline at 150 mL per hour. Zofran as needed for nausea or vomiting. Repeat amylase and lipase tomorrow morning. Follow GI consultation. Potassium 3.4. Replace via protocol. Repeat BMP tomorrow morning. Add nicotine patch. As seen on CT abdomen and pelvis. Patient reports abnormal spotting over the past year. Positive family history for endometrial, ovarian and breast cancer. Obtain pelvic ultrasound. Follow A1c. Albuterol neb as needed for shortness of breath or wheezing. Not in acute exacerbation. Restart Synthroid. [Patient admitted for acute pancreatitis. Continues to be an epigastric pain. Continues to be nothing by mouth. Continue IV pain control. She is pending clinical improvement. Likely DC in 2-3 days.]
--- NOTE | 2019-09-28 12:08 | US ---
EXAMINATION TYPE: US pelvis complete transvag DATE OF EXAM: 09/28/2019 COMPARISON: CT abdomen and pelvis 2 days ago. Pelvic ultrasound roughly one year ago. CLINICAL HISTORY: spotting, fullness. abn CT TECHNIQUE: TA/TV. Transabdominal sonographic images of the pelvis were acquired. Transvaginal sono graphic images were medically necessary to better assess the following anatomy: uterus Date of LMP: 09/12/2019 EXAM MEASUREMENTS: Uterus: 11.9 x 4.3 x 5.1 cm Endometrial Stripe: 1.1 cm Right Ovary: 3.6 x 3.2 x 1.9 cm Left Ovary: 3.0 x 2.6 x 1.9 cm 1. Uterus: Anteverted diffusely heterogeneous, hypoechoic area near cervix, only seen in one plane , = 1.7 x 1.6cm 2. Endometrium: only seen transabdominally 3. Right Ovary: wnl 4. Left Ovary: wnl 5. Bilateral Adnexa: wnl 6. Posterior cul-de-sac: wnl The exam remains suboptimal secondary to patient's large body habitus. Suspect few nabothian cysts in the cervix on transvaginal investigation. Poor visualization of the uterine myometrium on both trans abdominal and transvaginal imaging. Poor visualization of the endometrial stripe presumed not thicken ed. No free fluid. On today's study both ovaries are identified without suspicious adnexal mass. They are symmetric in s ize. IMPRESSION: Suboptimal study. No obvious mass or adenopathy.
--- NOTE | 2019-09-28 13:21 | PN ---
PROGRESS NOTE DATE OF SERVICE: 09/28/2019 INTERVAL HISTORY: Patient is a 39-year-old pleasant white female who was admitted to the hospital with acute pancreatitis. She is feeling somewhat better today. Still requiring pain medications every 3 hours. No nausea, no vomiting. Remains n.p.o. No fever, chills, night sweats. PHYSICAL EXAMINATION: Blood pressure is 118/81, pulse rate 94, temperature 97.7. HEENT: Examination unremarkable. Conjunctivae are pink. Sclerae anicteric. Oral cavity no lesions. NECK: No JVD or lymph node enlargement. CHEST: Clear to auscultation. HEART: Regular rate and rhythm. ABDOMEN: Soft. There was still moderate to severe tenderness in the epigastric area. Rest of the abdomen was benign. EXTREMITIES: No pedal edema. NEURO: She is alert and oriented x3. No focal deficits. LABS: WBC 7.6, hemoglobin 11.6, platelets 170. Amylase is down to 507, lipase is down to 2736. ALT, AST are within normal limits. IMPRESSION: 1. Chronic relapsing pancreatitis, probably related to remote history of heavy alcohol use. Lately she has been drinking on a social basis. Recent CT scan showed calcifications in the pancreatic head consistent with chronic pancreatitis. Her amylase and lipase are improving. Abdominal symptoms are gradually improving. 2. Remote history of heavy alcohol use. RECOMMENDATIONS: 1. We will start her on a clear liquid diet. 2. Pain medications as needed. 3. Continue with aggressive hydration. 4. Patient was advised to increase ambulation. 5. Repeat labs in the morning. Will follow with you closely. Thank you for this consultation. MMODL / IJN: [id number] /
[2019-09-28 13:23] LABS: Hemoglobin A1C 5.9 % (4.0-6.0)
[2019-09-28] MEDS ORDERED: POTASSIUM CHLORIDE ER 20 MEQ TAB.ER PO SCH (15:00)
[2019-09-29] MEDS: SODIUM CHLORIDE 0.9% 1,000 ML IV SCH ×4 (01:05→23:10)
[2019-09-29] MEDS: KETOROLAC 15 MG/ML 1 ML VIAL IVP PRN ×2 (01:38→07:54)
[2019-09-29] MEDS: HYDROmorphone 1 MG/ML 1 ML SYRINGE IVP PRN ×7 (02:37→22:04)
[2019-09-29] MEDS: LEVOTHYROXINE 75 MCG TAB PO SCH (05:41)
[2019-09-29] MEDS: NICOTINE 14MG/24HR PATCH TRANSDERM SCH (07:48)
[2019-09-29] MEDS: HEPARIN SODIUM,PORCINE 5,000 UNIT/ML 1 ML VIAL SQ SCH ×2 (07:48→21:21)
[2019-09-29] MEDS: MONTELUKAST 10 MG TAB PO SCH (07:48)
[2019-09-29] MEDS: PANTOPRAZOLE 40 MG/10 ML VIAL IVP SCH ×2 (07:48→21:19)
[2019-09-29 07:58] LABS: African American GFR (CKD) >90 (>60 ml/min/1.73 sqM); Anion Gap 8 mmol/L; Blood Urea Nitrogen 2 mg/dL (7-17); Calcium 8.2 mg/dL (8.4-10.2); Carbon Dioxide 23 mmol/L (22-30); Chloride 106 mmol/L (98-107); Glucose 79 mg/dL (74-99); Non-African American GFR(CKD) >90 (>60 ml/min/1.73 sqM); Potassium 3.9 mmol/L (3.5-5.1); Sodium 137 mmol/L (137-145)
[2019-09-29 10:18] LABS: Amylase 324 U/L (30-110)
--- NOTE | 2019-09-29 13:02 | P.PN ---
Subjective Progress Note Date: 09/29/19 Patient was seen and examined. No acute events overnight. Patient continues to report epigastric discomfort, considerably improved from yesterday. No nausea or vomiting. No fever or chills. No chest pain, shortness breath or palpitations. Patient also reports vaginal spotting and changes in her menstrual cycle over the past year. She is underwent Pap smear without any detection of cervical cancer her HPV. She reports family history of endometrial and ovarian and breast cancer. Her last mammogram was 5 years ago normal according to patient. Objective - Vital Signs Vital signs: Vital Signs Temp 98.3 F 09/29/19 07:00 Pulse 81 09/29/19 08:00 Resp 18 09/29/19 08:00 BP 123/83 09/29/19 07:00 Pulse Ox 98 09/29/19 07:00 Intake & Output 09/28/19 09/29/19 09/29/19 18:59 06:59 18:59 Intake Total 400 Balance 400 Intake: Oral 400 Other: Voiding Method Toilet Toilet Toilet # Voids 2 1 - Exam General: [non toxic], [mild distress], [appears at stated age] Derm: [warm], [dry] Head: [atraumatic], [normocephalic], [symmetric] Eyes: [EOMI], [no lid lag], [anicteric sclera] Mouth: [no lip lesion], [mucus membranes moist] Cardiovascular: [S1S2 reg], [no murmur], [positive posterior tibial pulse bilateral], Lungs: [CTA bilateral], [no rhonchi, no rales] , [no accessory muscle use] Abdominal: [soft], [tenderness to palpation without rebound in all 4 quadrants worse in the epigastric area], [no guarding], [no appreciable organomegaly] Ext: [no gross muscle atrophy], [no edema], [no contractures] Neuro: [no focal neuro deficits] Psych: [Alert], [oriented], [appropriate affect] - Labs CBC & Chem 7: 09/28/19 08:42 09/29/19 06:58 Labs: Abnormal Lab Results - Last 24 Hours (Table) 09/29/19 09/29/19 Range/Units 06:58 06:58 BUN 2 L (7-17) mg/dL Creatinine 0.51 L (0.52-1.04) mg/dL Calcium 8.2 L (8.4-10.2) mg/dL Amylase 324 H* (30-110) U/L Lipase 2273 H (23-300) U/L Assessment and Plan Assessment: Acute pancreatitis Smoker Cervix abnormality seen on CT with vaginal spotting Hyperglycemia Asthma Hypothyroidism Patient is admitted for acute pancreatitis. This is apparent on CT along with elevated amylase and lipase. She will be transitioned to clear liquid diet. Change Dilaudid 2 mg IV every 3 hours to 1 mg every 3 hours as needed with Toradol 15 mg every 3 hours as needed. Continue normal saline at 150 mL per hour. Zofran as needed for nausea or vomiting. Repeat amylase and lipase tomorrow morning. Follow GI consultation. Add nicotine patch. As seen on CT abdomen and pelvis. Patient reports abnormal spotting over the past year. Positive family history for endometrial, ovarian and breast cancer. Pelvic ultrasound shows nabothian cysts in the cervix. Given her strong family history of endometrial cancer, consult LOAN OPERATIONS SPECIALIST, will likely need follow-up. A1c 5.9. Advised dietary modifications. Albuterol neb as needed for shortness of breath or wheezing. Not in acute exacerbation. Restart Synthroid. [Patient admitted for acute pancreatitis. Continues to be an epigastric pain but improved. Start clear liquid diet. Decrease IV pain medication. She is pending clinical improvement. Likely DC in 1-2 days.]
[2019-09-29] MEDS: oxyCODONE-APAP 10-325MG 1 EACH TAB PO SCH ×3 (13:09→21:17)
[2019-09-29] MEDS ORDERED: HYDROmorphone 1 MG/ML 1 ML SYRINGE IVP STA (14:21)
--- NOTE | 2019-09-29 19:22 | P.OBCN ---
History of Present Illness Consult date: 09/29/19 Reason for consult: other (Dysfunctional uterine bleeding) Chief complaint: Pancreatitis, history of dysfunctional uterine bleeding History of present illness: This patient is a 39-year-old 4 para 4 female who is admitted through the emergency department on September 25 with complaints of abdominal pain. Patient has a history of pancreatitis and was diagnosed with an acute exacerbation. Patient indicated the etiology of this may be initially excessive alcohol use, however she reports that she has not really seen a handtools repairer in the past. Incidentally, patient reported on her admission history a 1-2 year history of dysfunctional uterine bleeding. She states that she has menstrual cycle about once a month but does have bleeding between her periods from time to time. Patient was evaluated Dr. Israel last October and had a transvaginal ultrasound which for the most part was unremarkable with an endometrial thickening of 1.4 cm. Patient was referred to Dr. Chu and had a scheduled appointment with her however did call the office approximately 6 weeks later and stated that she no longer needed then appointment. In talking to the patient she really doesn't have any recollection of most of this stuff and feels that she did not follow through secondary to COVID (although this was not o ccurring at that time.) Patient had a repeat transvaginal ultrasound on this admission which shows endometrium which is not thickened (1.1 cm) and has no significant changes from her ultrasound approximately 1 year ago. Patient did have a Pap smear and examination approximately 1 year ago which was normal by Dr. Israel. Patient does not report any heavy vaginal bleeding at this time. Past gynecologic history is significant for 2 vaginal deliveries and 2 sections. Her first child was given up for adoption. Her has had a vasectomy and this is what they use for control. Patient's mother apparently was diagnosed with uterine cancer approximately 10 years ago. Review of Systems Genitourinary: Reports as per HPI Past Medical History Past Medical History: Asthma, Thyroid Disorder Additional Past Medical History / Comment(s): Other HX: pancreatitis, hypokalemi a, hypothyroidism, Anemia, vit D deficiency History of Any Multi-Drug Resistant Organisms: None Reported Past Surgical History: Section, Cholecystectomy, Orthopedic Surgery Additional Past Surgical History / Comment(s): RIGHT foot injury-Sx repair,c- sect x 2 Past Anesthesia/Blood Transfusion Reactions: No Reported Reaction Additional Past Anesthesia/Blood Transfusion Reaction / Comm: Pt states she has never recieved blood,took awhile to come out of anesthesia with foot surg. Past Psychological History: ADD/ADHD, Anxiety Additional Psychological History / Comment(s): Pt resides with her spouse and children. She is independent. She drives. Homemaker Smoking Status: Current every day smoker Past Alcohol Use History: Occasional Additional Past Alcohol Use History / Comment(s): Pt states she started smoking at age 17yrs and is alittle less than a ppd smoker. Pt states she drinks less than 7 drinks per week. Past Drug Use History: Marijuana Additional Drug Use History / Comment(s): Pt smokes marijuana occasionally. - Past Family History Father Family Medical History: Congestive Heart Failure (CHF) Additional Family Medical History / Comment(s): Father has a pacer. Mother Family Medical History: Cancer Additional Family Medical History / Comment(s): Mother had uterine cancer. She is 59 yrs old. Medications and Allergies Home Medications Medication Instructions Recorded Confirmed Type Levothyroxine Sodium [Synthroid] 75 mcg PO DAILY 11/18/17 09/26/19 History Albuterol Sulfate [Proair Hfa] 2 puff INHALATION RT-Q4H PRN 04/03/18 09/26/19 History Montelukast [Singulair] 10 mg PO DAILY 04/03/18 09/26/19 History Allergies Allergy/AdvReac Type Severity Reaction Status Date / Time venom-honey bee Allergy Intermediate Swelling Verified 09/26/19 11:42 [bee venom (honey bee)] increasingly worse with each sting Exam Vital Signs Temp Pulse Resp BP Pulse Ox 09/29/19 16:34 98.0 F 78 18 143/86 97 09/29/19 16:00 78 18 09/29/19 14:29 97.6 F 120 H 22 186/117 98 09/29/19 08:00 81 18 09/29/19 07:00 98.3 F 81 18 123/83 98 09/29/19 01:30 98.6 F 88 20 152/88 99 09/28/19 19:10 97.8 F 86 14 150/90 99 Intake and Output 09/29/19 09/29/19 09/29/19 06:59 14:59 22:59 Intake Total 100 Balance 100 Intake: Oral 100 Other: Voiding Method Toilet Toilet # Voids 1 4 Results Result Diagrams: 09/28/19 08:42 09/29/19 06:58 Abnormal Lab Results - Last 24 Hours (Table) 09/29/19 09/29/19 Range/Units 06:58 06:58 BUN 2 L (7-17) mg/dL Creatinine 0.51 L (0.52-1.04) mg/dL Calcium 8.2 L (8.4-10.2) mg/dL Amylase 324 H* (30-110) U/L Lipase 2273 H (23-300) U/L Assessment and Plan Assessment: This is a 39-year-old 4 para 4 female with long-standing dysfunctional uterine bleeding. At this time her evaluation has included 2 ultrasounds and a CAT scan. None of these are concerning for neoplasm at this time. Given the patient's age, this is very common and usually secondary to benign etiologies, although does warrant evaluation with an endometrial biopsy or perhaps a D&C.. Patient has had this going on for at least 2 years or so. At this time there is no acute processes going on therefore she is certainly stable for discharge from a gynecology standpoint and she can call our office and reschedule her appoint ment with either Dr. Chu or myself. I explained to her that although she certainly does have some risk factors for endometrial carcinoma in the future, there is no evidence of that at this time. I also emphasized to the patient that it appears she has chronic pancreatitis and should establish herself with a handtools repairer. (1) Dysfunctional uterine bleeding Current Visit: Yes Status: Chronic Code(s): N93.8 - OTHER SPECIFIED ABNORMAL UTERINE AND VAGINAL BLEEDING SNOMED Code(s): 67976021361007
[2019-09-30] MEDS: oxyCODONE-APAP 10-325MG 1 EACH TAB PO SCH ×4 (00:36→12:57)
[2019-09-30 00:46] VITALS: RESP 18
[2019-09-30] MEDS: HYDROmorphone 1 MG/ML 1 ML SYRINGE IVP PRN ×2 (01:44→05:40)
[2019-09-30] MEDS: SODIUM CHLORIDE 0.9% 1,000 ML IV SCH ×2 (05:40→12:45)
[2019-09-30] MEDS: LEVOTHYROXINE 75 MCG TAB PO SCH (06:26)
[2019-09-30 08:32] VITALS: BP 123/85; PULSE 84; TEMP 97.5
[2019-09-30] MEDS: MONTELUKAST 10 MG TAB PO SCH (09:01)
[2019-09-30] MEDS: HEPARIN SODIUM,PORCINE 5,000 UNIT/ML 1 ML VIAL SQ SCH (09:01)
[2019-09-30] MEDS: PANTOPRAZOLE 40 MG/10 ML VIAL IVP SCH (09:01)
[2019-09-30] MEDS: NICOTINE 14MG/24HR PATCH TRANSDERM SCH (09:01)
[2019-09-30] MEDS ORDERED: ONDANSETRON 4 MG/2 ML VIAL IVP PRN (10:06)
[2019-09-30] MEDS ORDERED: NALOXONE 0.4 MG/ML 1 ML VIAL IV PRN (10:06)
[2019-09-30 11:45] LABS: ALT 18 U/L (4-34); AST 26 U/L (14-36); African American GFR (CKD) >90 (>60 ml/min/1.73 sqM); Albumin 3.7 g/dL (3.5-5.0); Alkaline Phosphatase 46 U/L (38-126); Anion Gap 9 mmol/L; Blood Urea Nitrogen 2 mg/dL (7-17); Calcium 8.5 mg/dL (8.4-10.2); Carbon Dioxide 21 mmol/L (22-30); Chloride 106 mmol/L (98-107); Glucose 81 mg/dL (74-99); Non-African American GFR(CKD) >90 (>60 ml/min/1.73 sqM); Potassium 4.2 mmol/L (3.5-5.1); Sodium 136 mmol/L (137-145); Total Bilirubin 0.6 mg/dL (0.2-1.3); Total Protein 6.2 g/dL (6.3-8.2)
--- NOTE | 2019-09-30 11:47 | P.PN ---
<Ailyn Caruso - Last Filed: 09/30/19 16:38> Subjective Progress Note Date: 09/30/19 The patient is a 39-year-old pleasant white female who was admitted in the hospital with acute pancreatitis. She is feeling much better this morning. She has transient incision to oral pain medication which seems to be helping, has been able to cut down on the amount of IV pain medication. She denies any nausea or vomiting. Has been on a clear liquid diet, would like to increase to full liquids. Denies any fevers, chills, or night sweats. Objective - Vital Signs Vital signs: Vital Signs Temp 97.5 F L 09/30/19 08:30 Pulse 84 09/30/19 08:30 Resp 18 09/30/19 08:30 BP 123/85 09/30/19 08:30 Pulse Ox 98 09/30/19 08:30 Intake & Output 09/29/19 09/30/19 09/30/19 18:59 06:59 18:59 Other: Voiding Method Toilet # Voids 4 2 - Exam Blood pressure is 123/85, pulse rate 84, temperature 97.5 General appearance: The patient is alert, oriented, in no acute distress. HEENT: Examination unremarkable. Conjunctiva are pink. Sclera anicteric. Oral cavity mucous membranes moist no lesions Neck: Supple, no JVD or lymph node enlargement Heart: S1 S2. Regular rate and rhythm. CHEST: Clear to auscultation Abdomen: Soft, nontender, nondistended with bowel sounds. Mild tenderness in the epigastric area. Extremities: No pedal edema. Neurological: She is alert and oriented 3. No focal deficits - Labs CBC & Chem 7: 09/28/19 08:42 09/30/19 11:10 Assessment and Plan Assessment: 1. Chronic relapsing pancreatitis, probably related to remote history of heavy alcohol use. Lately she's been drinking on a social basis. Recent computed tomography scan showed ossifications in the pancreatic head consistent with chronic pancreatitis. Her amylase and lipase are improving. Abdominal symptoms are gradually improving. 2. Remote history of heavy alcohol use. Plan: 1. We will start her on a full liquid diet 2. Pain medications as needed. 3. Continue with aggressive hydration 4. Patient advised to continue with increased ambulation. 5. Repeat labs pending 6. If patient tolerates full liquid diet and pain remains controlled, she may be discharged home with follow-up in our office. Thank you for this consultation. The above dictated assessment and findings were discussed with Dr. Ovalles. The impression and plan of care have been directed as dictated. <Cassius Ovalles - Last Filed: 10/01/19 06:49> Objective - Vital Signs Vital signs: Vital Signs Temp 97.5 F L 09/30/19 08:30 Pulse 84 09/30/19 08:30 Resp 18 09/30/19 08:30 BP 123/85 09/30/19 08:30 Pulse Ox 98 09/30/19 08:30 Intake & Output 09/30/19 09/30/19 10/01/19 06:59 18:59 06:59 Intake Total 1350 Balance 1350 Intake: Intake, IV Titration 850 Amount Sodium Chloride 0.9% 1, 850 000 ml @ 150 mls/hr IV . [id number] [facility] Rx#:[id number] Oral 500 Other: # Voids 2 - Labs CBC & Chem 7: 09/28/19 08:42 09/30/19 11:10 Labs: Abnormal Lab Results - Last 24 Hours (Table) 09/30/19 Range/Units 11:10 Sodium 136 L (137-145) mmol/L Carbon Dioxide 21 L (22-30) mmol/L BUN 2 L (7-17) mg/dL Creatinine 0.51 L (0.52-1.04) mg/dL Total Protein 6.2 L (6.3-8.2) g/dL Assessment and Plan (1) Acute pancreatitis Status: Acute Code(s): K85.9 - ACUTE PANCREATITIS, UNSPECIFIED * DO NOT USE * SNOMED Code(s): 773321485 (2) Epigastric abdominal pain Status: Acute Code(s): R10.13 - EPIGASTRIC PAIN SNOMED Code(s): 45614956 Plan: 39-year-old female admitted with abdominal pain and acute pancreatitis. Pain is improved and patient has been able to tolerate advancement in diet and plan is for discharge today.
[2019-09-30] MEDS: KETOROLAC 15 MG/ML 1 ML VIAL IVP PRN (12:44)
--- NOTE | 2019-09-30 13:02 | P.DS ---
Providers Date of admission: 09/26/19 12:48 Expected date of discharge: 09/30/19 Attending physician: Jamal Aviles MD Consults: 09/26/19 12:54 Consult Physician Stat Consulting Provider: Harmony Mars Consult Reason/Comments: Acute on chronic pancreatitis Do you want consulting provider notified?: Yes 09/29/19 11:29 Consult Physician Urgent Consulting Provider: Kristopher Lopez Consult Reason/Comments: spotting Do you want consulting provider notified?: Yes Primary care physician: [facility] Course: 39-year-old female with PMH of pancreatitis, and asthma presents the ED for epigastric pain. Patient reports epigastric discomfort that radiates to the back that started last night that has been progressively getting worse into this morning. Pain is 10 out of 10 in severity. She describes the pain as stabbing in nature. Pain was associated with multiple episodes of vomiting this morning. She reports decreased appetite. She reports one episode of nonbloody diarrhea this morning. These constellation of symptoms prompted her to come to the ED. She had one glass of wine last night and is not a daily drinker. She denies any headache, lower extremity edema, fever or chills, cough, chest pain, shortness of breath, palpitations, changes in urination. She denies any dizziness, numbness/weakness/tingling of the extremities. In the ED, her vital signs were stable except for mildly elevated blood pressure. CBC was unremarkable. CMP showed glucose of 152. Amylase was 1349. Lipase was 14,632. Urinalysis showed large blood. CT abdomen and pelvis showed acute pancreatitis and masslike fullness of the cervix. Patient is admitted for pancreatitis with GI on consult. GI follow the patient during her hospitalization. Her amylase and lipase trended down to amylase 324 and amylase 2273. Her pain was controlled with Dilaudid and Percocet. She was given Zofran as needed for nausea or vomiting. She was hydrated with normal saline at 150 mL per hour. She was transitioned from clear liquid diet to full liquid diet and tolerated well. She did complain of some vaginal spotting for which pelvic ultrasound was ordered. Pelvic ultrasound showed nabothian cysts on the cervix. TUBE DRAWER was consulted and recommended outpatient follow-up. Patient was seen and examined this morning. No acute events overnight. Patient reports considerable improvement in her epigastric discomfort. No nausea or vomiting. Tolerating clear liquid diet well. Would like to go home. General: [non toxic], [mild distress], [appears at stated age] Derm: [warm], [dry] Head: [atraumatic], [normocephalic], [symmetric] Eyes: [EOMI], [no lid lag], [anicteric sclera] Mouth: [no lip lesion], [mucus membranes moist] Cardiovascular: [S1S2 reg], [no murmur], [positive posterior tibial pulse bilateral], Lungs: [CTA bilateral], [no rhonchi, no rales] , [no accessory muscle use] Abdominal: [soft], [tenderness to palpation without rebound in all 4 quadrants worse in the epigastric area, improved], [no guarding], [no appreciable organomegaly] Ext: [no gross muscle atrophy], [no edema], [no contractures] Neuro: [no focal neuro deficits] Psych: [Alert], [oriented], [appropriate affect] Acute pancreatitis Smoker Cervix abnormality seen on CT with vaginal spotting Hyperglycemia Asthma Hypothyroidism Patient is admitted for acute pancreatitis. This is apparent on CT along with elevated amylase and lipase. She will be transitioned to full liquid diet. Continue Dilaudid 1 mg every 3 hours as needed with Toradol 15 mg every 3 hours as needed. Decrease IVF to 50 mL per hour normal saline. Zofran as needed for nausea or vomiting. Add nicotine patch. As seen on CT abdomen and pelvis. Patient reports abnormal spotting over the past year. Positive family history for endometrial, ovarian and breast cancer. Pelvic ultrasound shows nabothian cysts in the cervix. Given her strong family history of endometrial cancer, consult TUBE DRAWER, will likely need follow-up. A1c 5.9. Advised dietary modifications. Albuterol neb as needed for shortness of breath or wheezing. Not in acute exacerbation. Restart Synthroid. [Patient admitted for acute pancreatitis. Continues to be an epigastric pain but improved. Start full liquid diet. Anticipated DC home today if pain improves this afternoon on full liquid diet. Follow GI in the outpatient setting. Follow TUBE DRAWER in the outpatient setting. This complex discharge took about 35 minutes to complete.] Pertinent Studies: CT abdomen and pelvis, pelvic ultrasound Patient Condition at Discharge: Stable Plan - Discharge Summary New Discharge Prescriptions: New oxyCODONE-APAP 10-325MG [Percocet 10-325 mg] 1 each PO Q4H #18 tab Continue Levothyroxine Sodium [Synthroid] 75 mcg PO DAILY Montelukast [Singulair] 10 mg PO DAILY Albuterol Sulfate [Proair Hfa] 2 puff INHALATION RT-Q4H PRN PRN Reason: Shortness Of Breath Discharge Medication List Levothyroxine Sodium [Synthroid] 75 mcg PO DAILY 11/18/17 [History] Albuterol Sulfate [Proair Hfa] 2 puff INHALATION RT-Q4H PRN 04/03/18 [History] Montelukast [Singulair] 10 mg PO DAILY 04/03/18 [History] oxyCODONE-APAP 10-325MG [Percocet 10-325 mg] 1 each PO Q4H #18 tab 09/30/19 [Rx] Follow up Appointment(s)/Referral(s): Juan Haney [Primary Care Provider] - 1-2 days Cassius Ovalles MD [STAFF PHYSICIAN] - 4 Weeks Activity/Diet/Wound Care/Special Instructions: Diet: Low-fat Follow-up PCP within 3 days of discharge Follow-up with GI within 1 week of discharge. Follow-up with TUBE DRAWER within 1 week of discharge. Take all medications as advised. Come back to the ED for worsening abdominal pain, intractable nausea or vomiting, chest pain, shortness of breath or palpitations. Discharge Disposition: HOME SELF-CARE
--- NOTE | 2019-09-30 14:07 | P.PN ---
Subjective Progress Note Date: 09/29/19 Principal diagnosis: Acute uncomplicated pancreatitis, abdominal pain 39-year-old female admitted to the hospital with complaints of abdominal pain and being treated for acute complicated pancreatitis. She still reports some abdominal pain. She has been able to tolerate on a liquid diet. No nausea or vomiting today. Objective - Vital Signs Vital signs: Vital Signs Temp 97.6 F 09/29/19 14:29 Pulse 120 H 09/29/19 14:29 Resp 22 09/29/19 14:29 BP 186/117 09/29/19 14:29 Pulse Ox 98 09/29/19 14:29 Intake & Output 09/28/19 09/29/19 09/29/19 18:59 06:59 18:59 Intake Total 400 Balance 400 Intake: Oral 400 Other: Voiding Method Toilet Toilet Toilet # Voids 2 1 4 - Exam On physical examination, patient appears comfortable in no apparent distress. HEAD: Normocephalic, atraumatic. EYES: No scleral icterus. No conjunctival injection. MOUTH: No lesions, tongue midline. NECK: Trachea midline, no gross abnormalities. ABDOMEN: Soft, obese, non tender to palpation. Bowel sounds are positive. No organomegaly. No guarding or rigidity. EXTREMITIES: No pedal edema. SKIN: No rashes, no jaundice. NEUROLOGIC: Alert and oriented x3. No focal deficits. - Labs CBC & Chem 7: 09/28/19 08:42 09/30/19 11:10 Labs: Abnormal Lab Results - Last 24 Hours (Table) 09/29/19 09/29/19 Range/Units 06:58 06:58 BUN 2 L (7-17) mg/dL Creatinine 0.51 L (0.52-1.04) mg/dL Calcium 8.2 L (8.4-10.2) mg/dL Amylase 324 H* (30-110) U/L Lipase 2273 H (23-300) U/L Assessment and Plan (1) Acute pancreatitis Narrative/Plan: 39-year-old female presenting with abdominal pain and currently receiving treatment for acute pancreatitis. Patient had been tolerating liquid diet but otherwise reporting persistent abdominal pain when trying to cut back on pain medications. Patient has had relapsing episodes of acute pancreatitis has a history of heavy alcohol use which she is currently only using on a social basis. She also uses tobacco. Current Visit: No Status: Acute Code(s): K85.9 - ACUTE PANCREATITIS, UNSPECIFIED * DO NOT USE * SNOMED Code(s): 130129061 (2) Epigastric abdominal pain Current Visit: Yes Status: Acute Code(s): R10.13 - EPIGASTRIC PAIN SNOMED Code(s): 35277853 Plan: Supportive care Okay for liquid diet as tolerated, advance to low-fat as symptoms improve Continue pain medications as needed, patient advised to try of her use of narcotics Ambulation as tolerated Continue to monitor clinically and labs strict alcohol and tobacco avoidance Thank you for allowing us to participate in the care of the patient
--- NOTE | 2019-10-02 07:55 | CDI ---
Documentation Clarification Form Date: 10/02/2019 07:40:05 AM From: Char Crisitna Phone: If you have a question about this query, please contact Mariia Fuller Window Cleaner at [phone] between 8am and 5pm. Admit Date: 09/26/2019 12:48:00 PM Patient Name: Randi Giron Visit Number: [id number] Discharge Date: 09/30/2019 03:07:00 PM ATTENTION: The Clinical Documentation Specialists (CDI) and [facility] Coding Staff appreciate your assistance in clarifying documentation. Please respond to the clarification below the line at the bottom and electronically sign. The CDI & [facility] Coding staff will review the response and follow-up if needed. Please note: Queries are made part of the Legal Health Record. If you have any questions, please contact the author of this message via ITS. Dr. Jamal Aviles Asthma is documented in the H and P, consults, PN's and DCS. Please clarify type of asthma for specificity of code. History/risk factors: asthma, patient with acute/chronic pancreatitis, smoker Vital Signs: 98.3 F, 82 bpm, 150/88, 98% RA down to 94% RA on 09/26 Treatment: Albuterol neb as needed for SOB or wheezing Medication: Albuterol Sulfate In your professional opinion, can you please further specify the following, if known? Severity Mild intermittent Mild persistent Moderate persistent Severe persistent Other, please specify ____ Unable to determine Form or Type Cough variant Childhood Exercise induced bronchospasm Extrinsic allergic Idiosyncratic Intrinsic nonallergic Late-onset Mixed Other, please specify____ Unable to determine unable to determine patient was not admitted for exacerbation of asthma MTDD
== END 2019-09-30 15:07 | disposition home or self-care (01) | DRG 440 ==
LOC: EC 09:39 → 4SSUR 12:48 → 6PED 09-29 16:53 → UNDODISIN 09-30 10:54
PROVIDERS: ADMIT Family Medicine; ATTEND Family Medicine
DX: K85.90 Acute pancreatitis without necrosis or infection, unspecified (principal); K86.1 Other chronic pancreatitis; N88.8 Other specified noninflammatory disorders of cervix uteri; F41.9 Anxiety disorder, unspecified; F90.9 Attention-deficit hyperactivity disorder, unspecified type; J45.909 Unspecified asthma, uncomplicated; E03.9 Hypothyroidism, unspecified; E87.6 Hypokalemia; F17.210 Nicotine dependence, cigarettes, uncomplicated; N93.8 Other specified abnormal uterine and vaginal bleeding; Z79.890 Hormone replacement therapy; Z79.899 Other long term (current) drug therapy; Z80.3 Family history of malignant neoplasm of breast; Z80.49 Family history of malignant neoplasm of other genital organs; Z82.49 Family history of ischemic heart disease and other diseases of the circulatory system; Z90.49 Acquired absence of other specified parts of digestive tract; R73.9 Hyperglycemia, unspecified; E55.9 Vitamin D deficiency, unspecified; Z91.030 Bee allergy status
CPT/HCPCS: 36415; 74177; 76830; 76856; 80048; 80053; 81001; 81025; 82150; 83036; 83605; 83690; 83735; 84132; 85025; 85027; 85610; 85730; 96361; 96374; 96375; 96376; 99285

== ENCOUNTER → 2020-06-10 | Outpatient (CLI) | payer BC ==
[2020-06-10 09:50] LABS: Basophils # (A) 0.1 k/uL (0-0.2); Basophils % (A) 1 %; Eosinophils # (A) 0.9 k/uL (0-0.7); Eosinophils % (A) 12 %; HCT 43.8 % (34.0-46.0); HGB 15.2 gm/dL (11.4-16.0); Lymphocytes # (A) 1.7 k/uL (1.0-4.8); Lymphocytes % (A) 23 %; MCHC 34.8 g/dL (31.0-37.0); MCV 97.9 fL (80.0-100.0); Mean Platelet Volume 7.1; Monocytes # (A) 0.4 k/uL (0-1.0); Monocytes % (A) 5 %; Neutrophils # (A) 4.1 k/uL (1.3-7.7); Neutrophils % (A) 57 %; Platelet Count 305 k/uL (150-450); RBC 4.48 m/uL (3.80-5.40); RDW 13.2 % (11.5-15.5); WBC 7.3 k/uL (3.8-10.6)
== END | disposition home or self-care (01) ==
LOC: LABPAT 09:06
PROVIDERS: ATTEND Obstetrics & Gynecology
DX: Z01.812 Encounter for preprocedural laboratory examination (principal); N92.0 Excessive and frequent menstruation with regular cycle
CPT/HCPCS: 36415; 85025

== ENCOUNTER 2020-06-26 23:45 | Inpatient (IN) | payer BC ==
[2020-06-27] MEDS ORDERED: HYDROmorphone 1 MG/ML 1 ML SYRINGE IVP STA (00:19)
[2020-06-27] MEDS ORDERED: ONDANSETRON 4 MG/2 ML VIAL IVP STA (00:19)
[2020-06-27] MEDS ORDERED: LORazepam 2 MG/ML INJ IV STA (00:19)
[2020-06-27] MEDS ORDERED: SODIUM CHLORIDE 0.9% 500 ML 500 ML IV STA (00:19)
[2020-06-27] MEDS ORDERED: diphenhydrAMINE 50 MG/ML 1 ML VIAL IVP STA (00:19)
[2020-06-27] MEDS ORDERED: SODIUM CHLORIDE 0.9% 1,000 ML IV STA ×2 (00:19)
--- NOTE | 2020-06-27 00:20 | ED ---
Abdominal Pain HPI - General Chief Complaint: Abdominal Pain Stated Complaint: Abdominal pain Time Seen by Provider: 06/27/20 00:18 Source: patient, RN notes reviewed, old records reviewed Mode of arrival: wheelchair Limitations: no limitations - History of Present Illness Initial Comments: This is a 4-year-old female DF for evaluation patient Dese for evaluation of severe abdominal pain epigastric abdominal pain positive nausea vomiting. No fevers she has acute on chronic pancreatitis history of same. This pain is severely uncontrolled she's. Anxious and not feeling well MD Complaint: abdominal pain -: hour(s) Location: epigastric Radiation: epigastric Migration to: epigastric, R flank Severity: severe Severity scale (1-10): 10 Quality: aching, sharp Consistency: constant Improves With: nothing Worsens With: nothing Context: other (none) Associated Symptoms: nausea, vomiting Treatments Prior to Arrival: other (none) - Related Data Home Medications Medication Instructions Recorded Confirmed Levothyroxine Sodium [Synthroid] 75 mcg PO DAILY 11/18/17 06/27/20 Albuterol Sulfate [Proair Hfa] 2 puff INHALATION RT-Q4H PRN 04/03/18 06/27/20 Latanoprost/Pf [Latanoprost 0.005% 1 drop BOTH EYES HS 06/24/20 06/27/20 Eye Drop] Allergies Allergy/AdvReac Type Severity Reaction Status Date / Time venom-honey bee Allergy Intermediate Swelling Verified 06/27/20 09:58 [bee venom (honey bee)] increasingly worse with each sting Review of Systems ROS Statement: Those systems with pertinent positive or pertinent negative responses have been documented in the HPI. ROS Other: All systems not noted in ROS Statement are negative. Past Medical History Past Medical History: Asthma, Eye Disorder, Thyroid Disorder Additional Past Medical History / Comment(s): Hx of Pancreatitis, Hypokalemia, Hypothyroidism, Anemia and Vitamin D Deficiency. Increased eye pressure. History of Any Multi-Drug Resistant Organisms: None Reported Past Surgical History: Section, Cholecystectomy, Orthopedic Surgery Additional Past Surgical History / Comment(s): Section X2, right foot surgery. Past Anesthesia/Blood Transfusion Reactions: No Reported Reaction Additional Past Anesthesia/Blood Transfusion Reaction / Comment(s): Has never received blood, took a while to come out of anesthesia with foot surgery. Past Psychological History: ADD/ADHD, Anxiety Smoking Status: Current every day smoker Past Alcohol Use History: Occasional Past Drug Use History: Marijuana - Past Family History Father Family Medical History: Congestive Heart Failure (CHF) Additional Family Medical History / Comment(s): Father has a pacemaker. Mother Family Medical History: Cancer Additional Family Medical History / Comment(s): Mother had uterine cancer. General Exam Limitations: no limitations General appearance: alert, in no apparent distress Head exam: Present: atraumatic, normocephalic, normal inspection Eye exam: Present: normal appearance, PERRL, EOMI. Absent: scleral icterus, conjunctival injection, periorbital swelling ENT exam: Present: normal exam, mucous membranes moist Neck exam: Present: normal inspection. Absent: tenderness, meningismus, ly mphadenopathy Respiratory exam: Present: normal lung sounds bilaterally. Absent: respiratory distress, wheezes, rales, rhonchi, stridor Cardiovascular Exam: Present: regular rate, normal rhythm, normal heart sounds. Absent: systolic murmur, diastolic murmur, rubs, gallop, clicks GI/Abdominal exam: Present: soft, distended, tenderness, normal bowel sounds. Absent: guarding, rebound, rigid Extremities exam: Present: normal inspection, full ROM, normal capillary refill. Absent: tenderness, pedal edema, joint swelling, calf tenderness Back exam: Present: normal inspection Neurological exam: Present: alert, oriented X3, CN II-XII intact Psychiatric exam: Present: normal affect, normal mood Skin exam: Present: warm, dry, intact, normal color. Absent: rash Course Vital Signs 06/27/20 06/27/20 06/27/20 00:01 01:05 02:03 Temperature 97.5 F L 97.8 F Pulse Rate 87 75 Pulse Rate [ 65 Pulse Oximetery ] Respiratory 20 18 16 Rate Blood Pressure 151/103 123/78 Blood Pressure 141/92 [Right Arm] O2 Sat by Pulse 97 98 97 Oximetry - Reevaluation(s) Reevaluation #1: Medical record is reviewed Symptoms improved here significantly in the emergency room Patient informed results and questions answered Still with abdominal pain Medical Decision Making - Medical Decision Making 40 female with abdominal pain acute on chronic pancreatitis. Patient be admitted for symptom management and feeling pain control - Lab Data Result diagrams: 06/27/20 00:26 06/28/20 06:56 Lab Results 05/06/27/20 06/27/20 Range/Units 00:26 00:26 00:26 WBC 13.6 H (3.8-10.6) k/uL RBC 4.63 (3.80-5.40) m/uL Hgb 15.4 (11.4-16.0) gm/dL Hct 45.2 (34.0-46.0) % MCV 97.5 (80.0-100.0) fL MCH 33.3 (25.0-35.0) pg MCHC 34.1 (31.0-37.0) g/dL RDW 13.2 (11.5-15.5) % Plt Count 308 (150-450) k/uL MPV 7.3 Neutrophils % 65 % Lymphocytes % 22 % Monocytes % 5 % Eosinophils % 6 % Basophils % 1 % Neutrophils # 8.8 H (1.3-7.7) k/uL Lymphocytes # 3.0 (1.0-4.8) k/uL Monocytes # 0.6 (0-1.0) k/uL Eosinophils # 0.8 H (0-0.7) k/uL Basophils # 0.1 (0-0.2) k/uL Sodium 137 (137-145) mmol/L Potassium 3.6 (3.5-5.1) mmol/L Chloride 105 (98-107) mmol/L Carbon Dioxide 20 L (22-30) mmol/L Anion Gap 12 mmol/L BUN 17 (7-17) mg/dL Creatinine 0.81 (0.52-1.04) mg/dL Est GFR (CKD-EPI)AfAm >90 (>60 ml/min/1.73 sqM) Est GFR (CKD-EPI)NonAf >90 (>60 ml/min/1.73 sqM) Glucose 154 H (74-99) mg/dL Plasma Lactic Acid Tyree 1.9 (0.7-2.0) mmol/L Calcium 10.2 (8.4-10.2) mg/dL Total Bilirubin 0.6 (0.2-1.3) mg/dL AST 26 (14-36) U/L ALT 23 (4-34) U/L Alkaline Phosphatase 81 (38-126) U/L Total Protein 7.4 (6.3-8.2) g/dL Albumin 4.9 (3.5-5.0) g/dL Triglycerides (0.0-149.0) mg/dL Cholesterol (0-200) mg/dL LDL Cholesterol, Calc (0.0-131.0) mg/dL VLDL Cholesterol, Calc (5.00-40.00) mg/dL HDL Cholesterol (40.0-60.0) mg/dL Cholesterol/HDL Ratio Amylase 2559 H* (30-110) U/L Lipase 28757 H (23-300) U/L Coronavirus (PCR) (Not Detectd) 06/27/20 06/27/20 Range/Units 00:26 01:10 WBC (3.8-10.6) k/uL RBC (3.80-5.40) m/uL Hgb (11.4-16.0) gm/dL Hct (34.0-46.0) % MCV (80.0-100.0) fL MCH (25.0-35.0) pg MCHC (31.0-37.0) g/dL RDW (11.5-15.5) % Plt Count (150-450) k/uL MPV Neutrophils % % Lymphocytes % % Monocytes % % Eosinophils % % Basophils % % Neutrophils # (1.3-7.7) k/uL Lymphocytes # (1.0-4.8) k/uL Monocytes # (0-1.0) k/uL Eosinophils # (0-0.7) k/uL Basophils # (0-0.2) k/uL Sodium (137-145) mmol/L Potassium (3.5-5.1) mmol/L Chloride (98-107) mmol/L Carbon Dioxide (22-30) mmol/L Anion Gap mmol/L BUN (7-17) mg/dL Creatinine (0.52-1.04) mg/dL Est GFR (CKD-EPI)AfAm (>60 ml/min/1.73 sqM) Est GFR (CKD-EPI)NonAf (>60 ml/min/1.73 sqM) Glucose (74-99) mg/dL Plasma Lactic Acid Tyree (0.7-2.0) mmol/L Calcium (8.4-10.2) mg/dL Total Bilirubin (0.2-1.3) mg/dL AST (14-36) U/L ALT (4-34) U/L Alkaline Phosphatase (38-126) U/L Total Protein (6.3-8.2) g/dL Albumin (3.5-5.0) g/dL Triglycerides 305.0 H (0.0-149.0) mg/dL Cholesterol 215 H (0-200) mg/dL LDL Cholesterol, Calc 93.0 (0.0-131.0) mg/dL VLDL Cholesterol, Calc 61.00 H (5.00-40.00) mg/dL HDL Cholesterol 61.0 H (40.0-60.0) mg/dL Cholesterol/HDL Ratio 3.52 Amylase (30-110) U/L Lipase (23-300) U/L Coronavirus (PCR) Not Detected (Not Detectd) Disposition Clinical Impression: Pancreatitis, Acute pancreatitis, Chronic pancreatitis Disposition: ADMITTED IP TO THIS [facility] Condition: Good Is patient prescribed a controlled substance at d/c from ED?: No
[2020-06-27 00:42] LABS: Basophils # (A) 0.1 k/uL (0-0.2); Basophils % (A) 1 %; Eosinophils # (A) 0.8 k/uL (0-0.7); Eosinophils % (A) 6 %; HCT 45.2 % (34.0-46.0); HGB 15.4 gm/dL (11.4-16.0); Lymphocytes % (A) 22 %; MCH 33.3 pg (25.0-35.0); MCHC 34.1 g/dL (31.0-37.0); MCV 97.5 fL (80.0-100.0); Mean Platelet Volume 7.3; Monocytes # (A) 0.6 k/uL (0-1.0); Monocytes % (A) 5 %; Neutrophils # (A) 8.8 k/uL (1.3-7.7); Neutrophils % (A) 65 %; Platelet Count 308 k/uL (150-450); RBC 4.63 m/uL (3.80-5.40); RDW 13.2 % (11.5-15.5); WBC 13.6 k/uL (3.8-10.6)
[2020-06-27 01:02] LABS: ALT 23 U/L (4-34); AST 26 U/L (14-36); African American GFR (CKD) >90 (>60 ml/min/1.73 sqM); Albumin 4.9 g/dL (3.5-5.0); Alkaline Phosphatase 81 U/L (38-126); Anion Gap 12 mmol/L; Blood Urea Nitrogen 17 mg/dL (7-17); Calcium 10.2 mg/dL (8.4-10.2); Carbon Dioxide 20 mmol/L (22-30); Chloride 105 mmol/L (98-107); Glucose 154 mg/dL (74-99); Non-African American GFR(CKD) >90 (>60 ml/min/1.73 sqM); Potassium 3.6 mmol/L (3.5-5.1); Sodium 137 mmol/L (137-145); Total Bilirubin 0.6 mg/dL (0.2-1.3); Total Protein 7.4 g/dL (6.3-8.2)
[2020-06-27 01:36] LABS: Lipase 17928 U/L (23-300)
[2020-06-27 01:53] LABS: Amylase 2559 U/L (30-110)
[2020-06-27] MEDS ORDERED: HYDROmorphone 1 MG/ML 1 ML SYRINGE IVP PRN (02:03)
[2020-06-27] MEDS ORDERED: NALOXONE 0.4 MG/ML 1 ML VIAL IV PRN (02:03)
[2020-06-27] MEDS ORDERED: ONDANSETRON 4 MG/2 ML VIAL IVP PRN (02:03)
[2020-06-27] MEDS: SODIUM CHLORIDE 0.9% 1,000 ML IV SCH ×4 (04:16→21:40)
[2020-06-27] MEDS: HYDROmorphone 1 MG/ML 1 ML SYRINGE IVP PRN ×8 (06:50→22:25)
[2020-06-27] MEDS: NICOTINE 21MG/24HR PATCH TRANSDERM SCH (14:18)
[2020-06-27 16:36] LABS: Chol/HDL Ratio 3.52
--- NOTE | 2020-06-27 17:30 | P.HPIM ---
History of Present Illness 39-year-old female came in with the epigastric abdominal pain severe associated with nausea no vomiting. Symptoms started yesterday patient is found to have an pancreatitis with highly elevated lipase and amylase. Patient has history of pancreatitis in the past multiple episodes about 6 episodes in the past patient had cholecystectomy in the past. Patient used to drink alcohol heavily which she cut down. Patient did drink a glass of wine couple days ago. (Will be obtained patient is on IV fluids Review of Systems REVIEW OF SYSTEMS: CONSTITUTIONAL: No fever, no malaise, no fatigue. HEENT: No recent visual problems or hearing problems. Denied any sore throat. CARDIOVASCULAR: No chest pain, orthopnea, PND, no palpitations, no syncope. PULMONARY: No shortness of breath, no cough, no hemoptysis. GASTROINTESTINAL: As mentioned in HPI NEUROLOGICAL: No headaches, no weakness, no numbness. HEMATOLOGICAL: Denies any bleeding or petechiae. GENITOURINARY: Denies any burning micturition, frequency, or urgency. MUSCULOSKELETAL/RHEUMATOLOGICAL: Denies any joint pain, swelling, or any muscle pain. ENDOCRINE: Denies any polyuria or polydipsia. The rest of the 14-point review of systems is negative. Past Medical History Past Medical History: Asthma, Eye Disorder, Thyroid Disorder Additional Past Medical History / Comment(s): Hx of Pancreatitis, Hypokalemia, Hypothyroidism, Anemia and Vitamin D Deficiency. Increased eye pressure. History of Any Multi-Drug Resistant Organisms: None Reported Past Surgical History: Section, Cholecystectomy, Orthopedic Surgery Additional Past Surgical History / Comment(s): Section X2, right foot surgery. Past Anesthesia/Blood Transfusion Reactions: No Reported Reaction Additional Past Anesthesia/Blood Transfusion Reaction / Comment(s): Has never received blood, took a while to come out of anesthesia with foot surgery. Past Psychological History: ADD/ADHD, Anxiety Smoking Status: Current every day smoker Past Alcohol Use History: Occasional Past Drug Use History: Marijuana - Past Family History Father Family Medical History: Congestive Heart Failure (CHF) Additional Family Medical History / Comment(s): Father has a pacemaker. Mother Family Medical History: Cancer Additional Family Medical History / Comment(s): Mother had uterine cancer. Medications and Allergies Home Medications Medication Instructions Recorded Confirmed Type Levothyroxine Sodium [Synthroid] 75 mcg PO DAILY 11/18/17 06/27/20 History Albuterol Sulfate [Proair Hfa] 2 puff INHALATION RT-Q4H PRN 04/03/18 06/27/20 History Latanoprost/Pf [Latanoprost 0.005% 1 drop BOTH EYES HS 06/24/20 06/27/20 History Eye Drop] Allergies Allergy/AdvReac Type Severity Reaction Status Date / Time venom-honey bee Allergy Intermediate Swelling Verified 06/27/20 09:58 [bee venom (honey bee)] increasingly worse with each sting Physical Exam Vitals: Vital Signs Temp Pulse Pulse Resp BP BP Pulse Ox 06/27/20 14:20 97.5 F L 64 16 154/95 96 06/27/20 10:22 97.0 F L 06/27/20 07:45 73 18 134/87 99 06/27/20 02:03 97.8 F 65 16 141/92 97 06/27/20 01:05 75 18 123/78 98 06/27/20 00:01 97.5 F L 87 20 151/103 97 Intake and Output 06/27/20 06/27/20 06/27/20 06:59 14:59 22:59 Other: Weight 83.6 kg PHYSICAL EXAMINATION: GENERAL: The patient is alert and oriented x3, not in any acute distress. Well developed, well nourished. HEENT: Pupils are round and equally reacting to light. EOMI. No scleral icterus. No conjunctival pallor. Normocephalic, atraumatic. No pharyngeal erythema. No thyromegaly. CARDIOVASCULAR: S1 and S2 present. No murmurs, rubs, or gallops. PULMONARY: Chest is clear to auscultation, no wheezing or crackles. ABDOMEN: Soft, nontender, nondistended, normoactive bowel sounds. No palpable organomegaly. MUSCULOSKELETAL: No joint swelling or deformity. EXTREMITIES: No cyanosis, clubbing, or pedal edema. NEUROLOGICAL: Gross neurological examination did not reveal any focal deficits. SKIN: No rashes. Results CBC & Chem 7: 06/27/20 00:26 06/27/20 00:26 Labs: Abnormal Lab Results - Last 24 Hours (Table) 06/27/20 06/27/20 06/27/20 Range/Units 00:26 00: 00:26 WBC 13.6 H (3.8-10.6) k/uL Neutrophils # 8.8 H (1.3-7.7) k/uL Eosinophils # 0.8 H (0-0.7) k/uL Carbon Dioxide 20 L (22-30) mmol/L Glucose 154 H (74-99) mg/dL Triglycerides 305.0 H (0.0-149.0) mg/dL Cholesterol 215 H (0-200) mg/dL VLDL Cholesterol, Calc 61.00 H (5.00-40.00) mg/dL HDL Cholesterol 61.0 H (40.0-60.0) mg/dL Amylase 2559 H* (30-110) U/L Lipase 31429 H (23-300) U/L Thrombosis Risk Factor Assmnt - Choose All That Apply Each Factor Represents 1 point: Obesity (BMI >25) Thrombosis Risk Factor Assessment Total Risk Factor Score: 1 Thrombosis Risk Factor Assessment Level: Low Risk Assessment and Plan Plan: Acute pancreatitis: Possibly idiopathic patient had history of alcohol abuse in the past. We'll obtain lipid panel patient the symptoms started after eating fatty diet. Gastric polyp was consulted and continue with IV fluids patient will remain nothing by mouth. -Asthma without any acute exacerbation -Nicotine abuse: Counseling was provided -Hypothyroidism continue with levothyroxine and her she can tolerate by mouth diet -DVT prophylaxis Lovenox. GI prophylaxis with Protonix
[2020-06-27] MEDS ORDERED: LACTATED RINGERS 1,000 ML IV ONE (19:15)
--- NOTE | 2020-06-27 19:16 | P.CONS ---
History of Present Illness - Reason for Consult Consult date: 06/27/20 pancreatitis Requesting physician: Ijeoma Hinson - Chief Complaint aabdominal pain - History of Present Illness 39-year-old female with a medical history significant for hypothyroidism and prior hospitalizations for pancreatitis presented to the hospital due to compla ints of abdominal pain. The patient reports epigastric and periumbilical abdominal pain described as sharp, crampy, achy and severe. She reports radiation of the pain into her back. She has a prior history of pancreatitis and reports approximately 6 prior hospitalizations for pancreatitis. It is been a few years since her last hospitalization. She is status post cholecystectomy in the past. She denies any new medications, heavy alcohol use at this time but reports previously she drank heavily. She was found to have markedly elevated amylase and lipase on presentation to the hospital. Review of Systems REVIEW OF SYSTEMS: CONSTITUTIONAL: Denies any fevers, chills, weight change or fatigue. CARDIOVASCULAR: Denies any chest pain, palpitations high or low blood pressures RESPIRATORY: Denies any shortness of breath, hemoptysis or cough. GENITOURINARY: No dysuria or hematuria. MUSCULOSKELETAL: No weakness reported. SKIN: Denies any new rashes or lesions, jaundice or pallor. PSYCHIATRIC: Denies any depression or anxiety. NEUROLOGY: Denies headache, denies any new focal deficits. EARS/NOSE/THROAT: No recent hearing change, congestion, nasal discharge or sore throat. EYES: No pain in eyes, discharge or change in vision. GASTROINTESTINAL: As per HPI. Past Medical History Past Medical History: Asthma, Eye Disorder, Thyroid Disorder Additional Past Medical History / Comment(s): Hx of Pancreatitis, Hypokalemia, Hypothyroidism, Anemia and Vitamin D Deficiency. Increased eye pressure. History of Any Multi-Drug Resistant Organisms: None Reported Past Surgical History: Section, Cholecystectomy, Orthopedic Surgery Additional Past Surgical History / Comment(s): Section X2, right foot surgery. Past Anesthesia/Blood Transfusion Reactions: No Reported Reaction Additional Past Anesthesia/Blood Transfusion Reaction / Comm: Has never received blood, took a while to come out of anesthesia with foot surgery. Past Psychological History: ADD/ADHD, Anxiety Smoking Status: Current every day smoker Past Alcohol Use History: Occasional Past Drug Use History: Marijuana - Past Family History Father Family Medical History: Congestive Heart Failure (CHF) Additional Family Medical History / Comment(s): Father has a pacemaker. Mother Family Medical History: Cancer Additional Family Medical History / Comment(s): Mother had uterine cancer. Medications and Allergies Home Medications Medication Instructions Recorded Confirmed Type Levothyroxine Sodium [Synthroid] 75 mcg PO DAILY 11/18/17 06/27/20 History Albuterol Sulfate [Proair Hfa] 2 puff INHALATION RT-Q4H PRN 04/03/18 06/27/20 History Latanoprost/Pf [Latanoprost 0.005% 1 drop BOTH EYES HS 06/24/20 06/27/20 History Eye Drop] Allergies Allergy/AdvReac Type Severity Reaction Status Date / Time venom-honey bee Allergy Intermediate Swelling Verified 06/27/20 09:58 [bee venom (honey bee)] increasingly worse with each sting Physical Exam Vitals: Vital Signs Temp Pulse Pulse Resp BP BP Pulse Ox 06/27/20 10:22 97.0 F L 06/27/20 07:45 73 18 134/87 99 06/27/20 02:03 97.8 F 65 16 141/92 97 06/27/20 01:05 75 18 123/78 98 06/27/20 00:01 97.5 F L 87 20 151/103 97 Intake and Output 06/26/20 06/27/20 06/27/20 22:59 06:59 14:59 Other: Weight 83.6 kg On physical examination, patient appears comfortable in no apparent distress. HEAD: Normocephalic, atraumatic. EYES: No scleral icterus. No conjunctival injection. MOUTH: No lesions, tongue midline. NECK: Trachea midline, no gross abnormalities. CHEST: Clear to auscultation with no wheezing or rhonchi appreciated. HEART: Regular rate and rhythm. ABDOMEN: Soft, moderate tenderness to palpation. Bowel sounds are positive. No organomegaly. No guarding or rigidity. EXTREMITIES: No pedal edema. SKIN: No rashes, no jaundice. NEUROLOGIC: Alert and oriented x3. No focal deficits. Results CBC & Chem 7: 06/27/20 00:26 06/27/20 00:26 Labs: Abnormal Lab Results - Last 24 Hours (Table) 06/27/20 06/27/20 Range/Units 00: 00:26 WBC 13.6 H (3.8-10.6) k/uL Neutrophils # 8.8 H (1.3-7.7) k/uL Eosinophils # 0.8 H (0-0.7) k/uL Carbon Dioxide 20 L (22-30) mmol/L Glucose 154 H (74-99) mg/dL Amylase 2559 H* (30-110) U/L Lipase 20037 H (23-300) U/L US - abdomen: report reviewed (ultrasound of the abdomen ordered and pending) Assessment and Plan (1) Acute pancreatitis Narrative/Plan: 39-year-old female presented with abdominal pain found to have markedly elevated amylase and lipase. Currently hospitalized for acute pancreatitis. No imaging available at this time. She has had multiple hospitalizations in the past for pancreatitis. Previously she was having drinker but reports that she only drinks socially now. She is status post cholecystectomy in the past. Current Visit: Yes Status: Acute Code(s): K85.9 - ACUTE PANCREATITIS, UNSPECIFIED * DO NOT USE * SNOMED Code(s): 568172450 (2) Epigastric abdominal pain Current Visit: No Status: Acute Code(s): R10.13 - EPIGASTRIC PAIN SNOMED Code(s): 50213250 Plan: supportive care Nothing by mouth except for ice chips JIMY and IgG levels ordered Ultrasound of the abdomen ordered 1 L of lactated Ringer's ordered, continue maintenance fluids after bolus Continue pain control Encourage ambulation as tolerated Continue to monitor CBC, BMP, LFTs Thank you for allowing us to participate in the care of the patient
[2020-06-27] MEDS: HYDROcodone/APAP 5-325MG 1 EACH TAB PO PRN (20:04)
[2020-06-28] MEDS: HYDROmorphone 1 MG/ML 1 ML SYRINGE IVP PRN ×11 (02:23→21:59)
[2020-06-28] MEDS: SODIUM CHLORIDE 0.9% 1,000 ML IV SCH ×4 (05:00→22:51)
--- NOTE | 2020-06-28 07:59 | US ---
EXAMINATION TYPE: US abdomen limited DATE OF EXAM: 06/28/2020 COMPARISON: 11/18/2017 CLINICAL HISTORY: Pancreatitis. Pain. Abnormal labs. GB removed. EXAM MEASUREMENTS: Liver Length: 17.7 cm CBD: 0.5 cm. This is within normal limits. Right Kidney: 10.5 x 4.5 x 4.2 cm Pancreas: Head and tail not well visualized. Main pancreatic duct dilated= 7.1 mm. This is grossly dilated. An obstructing lesion or mass is not excluded. An MRCP is recommended for further evaluation . Liver: upper limits of normal Gallbladder: Surgically absent CBD: wnl Right Kidney: No hydronephrosis or masses seen IMPRESSION: 1. The head and tail of the pancreas are poorly visualized due to overlying bowel gas.. The pancreati c duct measures 7.1 mm, which is grossly dilated. Although this may represent sequela from pancreatit is, this is larger than prior ultrasound from 2018. An obstructing lesion or mass is not excluded. An d MRCP is recommended for further evaluation.
[2020-06-28] MEDS: PANTOPRAZOLE 40 MG/10 ML VIAL IVP SCH (08:22)
[2020-06-28] MEDS: ENOXAPARIN 40 MG/0.4 ML SYRINGE SQ SCH (08:22)
[2020-06-28] MEDS: NICOTINE 21MG/24HR PATCH TRANSDERM SCH (08:23)
[2020-06-28] MEDS: HYDROcodone/APAP 5-325MG 1 EACH TAB PO PRN ×3 (08:27→19:53)
[2020-06-28 09:20] LABS: ALT 15 U/L (4-34); AST 20 U/L (14-36); African American GFR (CKD) >90 (>60 ml/min/1.73 sqM); Albumin 3.4 g/dL (3.5-5.0); Alkaline Phosphatase 56 U/L (38-126); Anion Gap 4 mmol/L; Blood Urea Nitrogen 3 mg/dL (7-17); Calcium 8.2 mg/dL (8.4-10.2); Carbon Dioxide 27 mmol/L (22-30); Chloride 103 mmol/L (98-107); Glucose 86 mg/dL (74-99); Non-African American GFR(CKD) >90 (>60 ml/min/1.73 sqM); Potassium 3.7 mmol/L (3.5-5.1); Sodium 134 mmol/L (137-145); Total Bilirubin 0.5 mg/dL (0.2-1.3); Total Protein 5.7 g/dL (6.3-8.2)
[2020-06-28 09:27] LABS: Amylase 544 U/L (30-110)
[2020-06-28 09:28] LABS: Lipase 2048 U/L (23-300)
--- NOTE | 2020-06-28 14:28 | P.PN ---
Subjective Progress Note Date: 06/28/20 Patient reports improvement in her abdominal pain, did have an episode of nausea, vomiting. She has minimal appetite at this time. Liver function tests and lipase are improving. Objective - Vital Signs Vital signs: Vital Signs Temp 98.2 F 06/28/20 10:14 Pulse 69 06/28/20 10:14 Resp 16 06/28/20 10:14 BP 145/87 06/28/20 10:14 Pulse Ox 97 06/28/20 10:14 Intake & Output 06/27/20 06/28/20 06/28/20 18:59 06:59 18:59 Output Total 1 Balance -1 Output: Urine 1 Other: Voiding Method Toilet Toilet # Voids 1 3 - Exam Gen: awake, alert HEENT: normocephalic, atraumatic, good hearing acuity, moist mucous membranes Resp: good air exchange, breathing comfortably with no accessory muscle use, clear to auscultation bilaterally CVS: good distal perfusion x 4, regular rate and rhythm without murmurs GI: soft, tenderness to palpation in the epigastrium and right upper quadrant, nondistended : no SPT, no CVAT, ribera catheter not present MSK: no pitting edema, no clubbing Neuro: non-focal, moving all extremities Psych: cooperative, euthymic mood - Labs CBC & Chem 7: 06/27/20 00:26 06/28/20 06:56 Labs: Abnormal Lab Results - Last 24 Hours (Table) 06/27/20 06/28/20 Range/Units 00:26 06:56 Sodium 134 L (137-145) mmol/L BUN 3 L (7-17) mg/dL Calcium 8.2 L (8.4-10.2) mg/dL Total Protein 5.7 L (6.3-8.2) g/dL Albumin 3.4 L (3.5-5.0) g/dL Triglycerides 305.0 H (0.0-149.0) mg/dL Cholesterol 215 H (0-200) mg/dL VLDL Cholesterol, Calc 61.00 H (5.00-40.00) mg/dL HDL Cholesterol 61.0 H (40.0-60.0) mg/dL Amylase 544 H* (30-110) U/L Lipase 2048 H (23-300) U/L Assessment and Plan Assessment: Acute pancreatitis -Admitted to inpatient -Nothing by mouth -IV fluids -Pain control -Nausea control -Clear liquid diet tomorrow -Abdominal ultrasound demonstrates dilation of pancreatic duct, recommends MRCP -GI consult, appreciate recommendations: JIMY, IgG levels are pending -MRCP pending Asthma without exacerbation -DuoNeb's when necessary Nicotine abuse -Cessation counseling Hypothyroidism -Continue levothyroxine DVT prophylaxis with Lovenox GI prophylaxis with Protonix
--- NOTE | 2020-06-28 15:59 | P.PN ---
Subjective Progress Note Date: 06/28/20 Principal diagnosis: Abdominal pain, pancreatitis Patient seen and examined for follow-up of pancreatitis. Repeat amylase and lipase trending down. Patient states she still having significant abdominal pain, with some nausea and vomiting. She is nothing by mouth with ice chips. States she has not had any follow-up for her history of pancreatitis. JIMY and IgG ordered and pending. Triglycerides came back at 305. She has a previous history of heavy alcohol abuse, still drinks currently but not daily. She denies any outpatient follow-up with MRI or EUS. Objective - Vital Signs Vital signs: Vital Signs Temp 97.4 F L 06/28/20 08:19 Pulse 120 H 06/28/20 08:19 Resp 18 06/28/20 08:19 BP 133/93 06/28/20 08:19 Pulse Ox 95 06/28/20 08:19 Intake & Output 06/27/20 06/28/20 06/28/20 18:59 06:59 18:59 Output Total 1 Balance -1 Output: Urine 1 Other: Voiding Method Toilet # Voids 1 3 - Exam General appearance: The patient is alert, oriented, appears in no acute distress. HET: Head is normocephalic and atraumatic. Conjunctiva pink. Sclera anicteric. Neck: Supple without lymphadenopathy. Abdomen: Soft, abdominal tenderness, nondistended with bowel sounds. No guarding or rigidity. Extremities: Normal skin color and turgor. No pedal edema Skin: No rashes, no jaundice Neurological: No focal deficits. Alert and oriented 3. - Labs CBC & Chem 7: 06/27/20 00:26 06/28/20 06:56 Labs: Abnormal Lab Results - Last 24 Hours (Table) 06/27/20 Range/Units 00:26 Triglycerides 305.0 H (0.0-149.0) mg/dL Cholesterol 215 H (0-200) mg/dL VLDL Cholesterol, Calc 61.00 H (5.00-40.00) mg/dL HDL Cholesterol 61.0 H (40.0-60.0) mg/dL Assessment and Plan (1) Acute pancreatitis Narrative/Plan: 9-year-old female presented with abdominal pain, have markedly elevated amylase and lipase. Currently has place for acute pancreatitis. No imaging available at this time. She has had multiple hospitalizations in the past for pancreat itis. Previously she was a heavy drinker but reports that she is really drinking socially now. She is status post cholecystectomy in the past. Current Visit: Yes Status: Acute Code(s): K85.9 - ACUTE PANCREATITIS, UNSPEC IFIED * DO NOT USE * SNOMED Code(s): 319727347 (2) Chronic pancreatitis Current Visit: Yes Status: Acute Code(s): K86.1 - OTHER CHRONIC PANCREATITIS SNOMED Code(s): 873687138 (3) Epigastric abdominal pain Current Visit: No Status: Acute Code(s): R10.13 - EPIGASTRIC PAIN SNOMED Code(s): 82712803 Plan: 1. Continue symptomatic and supportive care 2. Nothing by mouth except ice chips and meds 3. Obtain a IgG level ordered, pending 4. Ultrasound ordered and reviewed 5. Continue IV hydration 6. Continue pain control per primary medicine team 7. Repeat lipase 8. Discussed with patient importance of outpatient follow-up, patient will likely need MRI of the pancreas in 6-8 weeks. Thank you for this consultation, we will continue to follow its Dr. Paulo Mars I agree with the dictator's note, documented as a scribe by Ailyn Haro.
[2020-06-29] MEDS: HYDROmorphone 1 MG/ML 1 ML SYRINGE IVP PRN ×7 (00:01→20:18)
[2020-06-29] MEDS: HYDROcodone/APAP 5-325MG 1 EACH TAB PO PRN ×4 (01:57→22:55)
--- NOTE | 2020-06-29 05:18 | MR ---
EXAMINATION TYPE: MR pancreas wo/w con DATE OF EXAM: 06/28/2020 COMPARISON: CT scan 09/26/2019 HISTORY: Dilated pancreatic duct CONTRAST: Standard multiplanar, multisequence MRI departmental protocol utilizing 7.5 mL intravenous gadolinium contrast. Liver shows no focal defect. The bile ducts are not dilated. Spleen is intact. There is mild ectasia of the mid and distal pancreatic duct. I see no pancreatic mass. Proximal pancreatic duct appears nor mal. There is no evidence of a pseudocyst. The stomach is intact. There is no sign of pleural effusio n. Gallbladder appears absent. There is no evidence of adrenal mass. Kidneys show normal size and contour. There is no hydronephrosi s. Contrast images show no pathologic enhancement. There is fairly uniform enhancement of the pancrea s without a discrete mass. There is normal enhancement of the portal venous system. There is no ascites. There is no evidence of retroperitoneal adenopathy. IMPRESSION: Mildly dilated pancreatic duct measures up to almost 7 mm and is probably the sequela of chronic panc reatitis that is evident on the old CT scan. No evidence of a pseudocyst. No obstructing mass. No meneses creatic solid mass identified.
[2020-06-29] MEDS: SODIUM CHLORIDE 0.9% 1,000 ML IV SCH ×3 (05:44→23:46)
[2020-06-29] MEDS: PANTOPRAZOLE 40 MG/10 ML VIAL IVP SCH (07:50)
[2020-06-29] MEDS: ENOXAPARIN 40 MG/0.4 ML SYRINGE SQ SCH (07:51)
[2020-06-29] MEDS: NICOTINE 21MG/24HR PATCH TRANSDERM SCH (07:51)
[2020-06-29 13:27] LABS: IgG Subclass 3 51.1 mg/dL (11.0-85.0); IgG Subclass 4 32.1 mg/dL (3.0-175.0)
--- NOTE | 2020-06-29 15:02 | P.PN ---
Subjective Progress Note Date: 06/29/20 Principal diagnosis: Abdominal pain, pancreatitis Patient seen and examined for follow-up of pancreatitis. Repeat lipase continues to trend down. Patient states her abdominal pain is improving, she is trying to spread out the time between taking pain medication. She tolerating a clear liquid diet and would like to be advanced. States she has not had any follow-up for her history of pancreatitis. JIMY negative, IgG pending. Triglycerides came back at 305. She has a previous history of heavy alcohol abuse, still drinks currently but not daily. Primary medicine order MRI of the pancreas that showed mildly dilated pancreatic duct measuring up to almost 7 mm is probably the sequela of chronic pancreatitis that is evident on the old computed tomography scan. No evidence of a pseudocyst. No obstructing mass. No pancreatic solid mass identified. Objective - Vital Signs Vital signs: Vital Signs Temp 97.7 F 06/29/20 08:10 Pulse 80 06/29/20 08:10 Resp 16 06/29/20 08:10 BP 120/76 06/29/20 08:10 Pulse Ox 96 06/29/20 08:10 Intake & Output 06/28/20 06/29/20 06/29/20 18:59 06:59 18:59 Output Total 2 Balance -2 Output: Emesis 2 Other: Voiding Method Toilet # Voids 3 2 - Exam General appearance: The patient is alert, oriented, appears in no acute distress. HET: Head is normocephalic and atraumatic. Conjunctiva pink. Sclera anicteric. Neck: Supple without lymphadenopathy. Abdomen: Soft, mild abdominal tenderness, nondistended with bowel sounds. No guarding or rigidity. Extremities: Normal skin color and turgor. No pedal edema Skin: No rashes, no jaundice Neurological: No focal deficits. Alert and oriented 3. - Labs CBC & Chem 7: 06/27/20 00:26 06/28/20 06:56 Labs: Abnormal Lab Results - Last 24 Hours (Table) 06/28/20 06/29/20 Range/Units 06:56 05:02 Sodium 134 L (137-145) mmol/L BUN 3 L (7-17) mg/dL Calcium 8.2 L (8.4-10.2) mg/dL Total Protein 5.7 L (6.3-8.2) g/dL Albumin 3.4 L (3.5-5.0) g/dL Amylase 544 H* (30-110) U/L Lipase 2048 H 1028 H (23-300) U/L Assessment and Plan (1) Acute pancreatitis Narrative/Plan: 9-year-old female presented with abdominal pain, have markedly elevated amylase and lipase. Currently has place for acute pancreatitis. No imaging available at this time. She has had multiple hospitalizations in the past for pancreatitis. Previously she was a heavy drinker but reports that she is really drinking socially now. She is status post cholecystectomy in the past. Patient's symptoms improving, dilated. Pancreatic enzymes trending down. Current Visit: Yes Status: Acute Code(s): K85.9 - ACUTE PANCREATITIS, UNSPECIFIED * DO NOT USE * SNOMED Code(s): 604456674 (2) Chronic pancreatitis Current Visit: Yes Status: Acute Code(s): K86.1 - OTHER CHRONIC PANCREATITIS SNOMED Code(s): 897791183 (3) Epigastric abdominal pain Current Visit: No Status: Acute Code(s): R10.13 - EPIGASTRIC PAIN SNOMED Code(s): 31376424 Plan: 1. Continue symptomatic and supportive care 2. Increase to full liquid diet, advance as tolerated 3. IgG level ordered, pending 4. Ultrasound ordered and reviewed 5. Continue IV hydration 6. Continue pain control per primary medicine team 8. MRI ordered per primary medicine team, reviewed 8. Discussed with patient importance of outpatient follow-up, patient will likely need MRI of the pancreas in 6-8 weeks. Thank you for this consultation, she may be discharged home with outpatient follow-up with gastroenterology Dr. Paulo Mars I agree with the dictator's note, documented as a scribe by Ailyn Haro.
--- NOTE | 2020-06-29 16:21 | P.DS ---
Providers Date of admission: 06/27/20 02:03 Expected date of discharge: 06/29/20 Attending physician: Olga Trinh MD Consults: 06/27/20 10:28 Consult Physician Routine Consulting Provider: Cassius Ovalles Consult Reason/Comments: Pancreatitis recurrent Do you want consulting provider notified?: Yes Primary care physician: [facility] Course: Acute pancreatitis Asthma without exacerbation Nicotine abuse Hypothyroidism Patient presented with abdominal pain with blood work demonstrating acute pancreatitis. Patient is placed on nothing by mouth with IV fluids with pain control and nausea control, and improved with conservative management. Ultrasound of the abdomen did demonstrate pancreatitis duct dilatation which was followed up with MRCP which did not demonstrate a mass in the pancreas. GI was consulted and recommended an JIMY, IgG levels were pending at the time of discharge. Patient was able tolerate a GI soft diet at the time of discharge, will follow-up with PCP and GI as needed. Nicotine cessation counseling was given, alcohol cessation counseling was given. Home meds were all continued with no changes. Assessment: Gen: awake, alert HEENT: normocephalic, atraumatic, good hearing acuity, moist mucous membranes Resp: good air exchange, breathing comfortably with no accessory muscle use CVS: good distal perfusion x 4, GI: soft, NTTP, ND : no SPT, no CVAT, ribera catheter not present MSK: no pitting edema, no clubbing Neuro: non-focal, moving all extremities Psych: cooperative, euthymic mood Patient Condition at Discharge: Good Plan - Discharge Summary New Discharge Prescriptions: Continue Levothyroxine Sodium [Synthroid] 75 mcg PO DAILY Albuterol Sulfate [Proair Hfa] 2 puff INHALATION RT-Q4H PRN PRN Reason: Shortness Of Breath Latanoprost/Pf [Latanoprost 0.005% Eye Drop] 1 drop BOTH EYES HS Discharge Medication List Levothyroxine Sodium [Synthroid] 75 mcg PO DAILY 11/18/17 [History] Albuterol Sulfate [Proair Hfa] 2 puff INHALATION RT-Q4H PRN 04/03/18 [History] Latanoprost/Pf [Latanoprost 0.005% Eye Drop] 1 drop BOTH EYES HS 06/24/20 [History] Follow up Appointment(s)/Referral(s): Neva Childs NPC [Nurse Practitioner] - 07/20/20 9:15 am Juan Haney [Primary Care Provider] - 07/01/20 8:00 am Discharge Disposition: HOME SELF-CARE
[2020-06-29] MEDS ORDERED: ONDANSETRON 4 MG/2 ML VIAL IVP PRN (22:23)
[2020-06-29] MEDS ORDERED: HYDROmorphone 1 MG/ML 1 ML SYRINGE IVP STA (23:15)
[2020-06-30] MEDS: HYDROmorphone 1 MG/ML 1 ML SYRINGE IVP PRN (02:19)
[2020-06-30] MEDS: HYDROcodone/APAP 5-325MG 1 EACH TAB PO PRN (04:26)
[2020-06-30] MEDS: SODIUM CHLORIDE 0.9% 1,000 ML IV SCH (05:39)
[2020-06-30] MEDS ORDERED: HYDROmorphone 1 MG/ML 1 ML SYRINGE IVP STA (06:20)
[2020-06-30] MEDS: NICOTINE 21MG/24HR PATCH TRANSDERM SCH (08:51)
[2020-06-30] MEDS: ENOXAPARIN 40 MG/0.4 ML SYRINGE SQ SCH (08:52)
[2020-06-30] MEDS: PANTOPRAZOLE 40 MG/10 ML VIAL IVP SCH (08:52)
[2020-06-30 09:05] VITALS: BP 156/92; PULSE 64; RESP 18; TEMP 98.2
== END 2020-06-30 10:45 | disposition home or self-care (01) | DRG 440 ==
LOC: EC 23:45 → 6PED 06-27 02:03
PROVIDERS: ADMIT Internal Medicine; ATTEND Internal Medicine
DX: K85.90 Acute pancreatitis without necrosis or infection, unspecified (principal); E03.9 Hypothyroidism, unspecified; K86.1 Other chronic pancreatitis; Z20.822 Contact with and (suspected) exposure to COVID-19; K86.81 Exocrine pancreatic insufficiency; E55.9 Vitamin D deficiency, unspecified; J45.909 Unspecified asthma, uncomplicated; K31.7 Polyp of stomach and duodenum; F90.9 Attention-deficit hyperactivity disorder, unspecified type; F41.9 Anxiety disorder, unspecified; F10.10 Alcohol abuse, uncomplicated; F17.210 Nicotine dependence, cigarettes, uncomplicated; Z71.6 Tobacco abuse counseling; Z79.890 Hormone replacement therapy; Z79.899 Other long term (current) drug therapy; Z90.49 Acquired absence of other specified parts of digestive tract; Z98.891 History of uterine scar from previous surgery; Z86.69 Personal history of other diseases of the nervous system and sense organs; Z86.2 Personal history of diseases of the blood and blood-forming organs and certain disorders involving the immune mechanism; Z98.890 Other specified postprocedural states; Z91.030 Bee allergy status; Z71.41 Alcohol abuse counseling and surveillance of alcoholic; Z82.49 Family history of ischemic heart disease and other diseases of the circulatory system; Z80.49 Family history of malignant neoplasm of other genital organs
CPT/HCPCS: 36415; 74183; 76705; 80053; 80061; 82150; 82787; 83605; 83690; 85025; 86038; 87635; 96361; 96374; 96375; 99285

== ENCOUNTER 2020-09-30 09:07 | Emergency (ER) | payer BC ==
[2020-09-30 09:11] VITALS: TEMP 98.1
[2020-09-30] MEDS ORDERED: methylPREDNISolone SOD SUCCI 125 MG/2 ML VIAL IV STA (09:16)
[2020-09-30] MEDS ORDERED: IPRATROPIUM 0.5 MG/2.5 ML NEBU INHALATION STA (09:16)
[2020-09-30] MEDS ORDERED: ALBUTEROL NEBULIZED 2.5 MG/3 ML INHALATION STA (09:16)
[2020-09-30] MEDS ORDERED: MAGNESIUM SULFATE-D5W PMX 1 GM in DEXTROSE/WATER 1 100ML.BAG IVPB STA (09:16)
[2020-09-30] MEDS ORDERED: TERBUTALINE 1 MG/ML VIAL SQ STA (09:16)
--- NOTE | 2020-09-30 09:19 | ED ---
General Adult HPI - General Chief complaint: Shortness of Breath Stated complaint: GEOFFREY Time Seen by Provider: 09/30/20 09:10 Source: patient, RN notes reviewed, old records reviewed Mode of arrival: ambulatory Limitations: no limitations - History of Present Illness Initial comments: This is a 40-year-old female with a past medical history significant for asthma. Patient states on Sunday she aspirated some of ever since she's been having hard time breathing. Patient states the breathing is gotten considerably worse. Patient states she's used her nebulizer multiple times and it has not helped. Patient denies any fever chills or cough per patient denies chest pain or palpitations. Patient denies any lightheadedness or dizziness. Patient denies any back pain. Patient denies abdominal pain patient denies nausea vomiting diarrhea. Patient denies any swelling to the legs or calf tenderness. - Related Data Home Medications Medication Instructions Recorded Confirmed Levothyroxine Sodium [Synthroid] 75 mcg PO DAILY 11/18/17 09/30/20 Albuterol Sulfate [Proair Hfa] 2 puff INHALATION RT-Q4H PRN 04/03/18 09/30/20 Latanoprost/Pf [Latanoprost 0.005% 1 drop BOTH EYES HS 06/24/20 09/30/20 Eye Drop] Allergies Allergy/AdvReac Type Severity Reaction Status Date / Time venom-honey bee Allergy Intermediate Swelling Verified 09/30/20 10:24 [bee venom (honey bee)] increasingly worse with each sting Review of Systems ROS Statement: Those systems with pertinent positive or pertinent negative responses have been documented in the HPI. ROS Other: All systems not noted in ROS Statement are negative. Past Medical History Past Medical History: Asthma, Eye Disorder, Thyroid Disorder Additional Past Medical History / Comment(s): Hx of Pancreatitis, Hypokalemia, Hypothyroidism, Anemia and Vitamin D Deficiency. Increased eye pressure. History of Any Multi-Drug Resistant Organisms: None Reported Past Surgical History: Section, Cholecystectomy, Orthopedic Surgery Additional Past Surgical History / Comment(s): Section X2, right foot surgery. Past Anesthesia/Blood Transfusion Reactions: No Reported Reaction Additional Past Anesthesia/Blood Transfusion Reaction / Comment(s): Has never received blood, took a while to come out of anesthesia with foot surgery. Past Psychological History: ADD/ADHD, Anxiety Smoking Status: Current every day smoker Past Alcohol Use History: Occasional Past Drug Use History: Marijuana - Past Family History Father Family Medical History: Congestive Heart Failure (CHF) Additional Family Medical History / Comment(s): Father has a pacemaker. Mother Family Medical History: Cancer Additional Family Medical History / Comment(s): Mother had uterine cancer. General Exam - General Exam Comments Initial Comments: GENERAL: Patient is well-developed and well-nourished. Patient is nontoxic and well- hydrated and is in moderate distress. ENT: Neck is soft and supple. No significant lymphadenopathy is noted. Oropharynx is clear. Moist mucous membranes. Neck has full range of motion without eliciting any pain. EYES: The sclera were anicteric and conjunctiva were pink and moist. Extraocular movements were intact and pupils were equal round and reactive to light. Eyelids were unremarkable. PULMONARY: Patient is not moving much air and respiratory wheezing diffusely CARDIOVASCULAR: Patient is tachycardic at 120 beats a minute ABDOMEN: Soft and nontender with normal bowel sounds. SKIN: Skin is clear with no lesions or rashes and otherwise unremarkable. NEUROLOGIC: Patient is alert and oriented x3. Cranial nerves II through XII are grossly intact. Motor and sensory are also intact. Normal speech, volume and content. Symmetrical smile. MUSCULOSKELETAL: Normal extremities with adequate strength and full range of motion. LYMPHATICS: No significant lymphadenopathy is noted PSYCHIATRIC: Normal psychiatric evaluation. Limitations: no limitations Course Vital Signs 09/30/20 09/30/20 09/30/20 09:08 09:24 09:39 Temperature 98.1 F Pulse Rate 122 H 100 102 H Respiratory 24 Rate Blood Pressure 128/80 O2 Sat by Pulse 95 Oximetry 09/30/20 09/30/20 09/30/20 09:45 10:54 13:12 Temperature Pulse Rate 104 H 115 H 99 Respiratory 16 18 Rate Blood Pressure 132/89 131/88 O2 Sat by Pulse 96 96 Oximetry Medical Decision Making - Medical Decision Making Chest x-ray shows no acute normalities. Patient received 3 breathing treatments in the emergency department steroids terbutaline and magnesium. She was feeling considerably better however when I listen to her she was very tight still and wheezing. Patient stated that she was doing better but nowhere near her baseline and she didn't feel comfortable going home. I spoke with Dr. Mason and he agreed to admit the patient I admitted the patient wrote admitting orders. I continue the albuterol steroids on the floor. After patient was admitted patient decided she wanted to go home even though I told her I prefer to stay she was insistent so I discharged home with some oral steroids. - Lab Data Result diagrams: 09/30/20 09:24 09/30/20 09:24 Lab Results 09/30/20 09/30/20 09/30/20 Range/Units 09:24 09:24 09:24 WBC 9.9 (3.8-10.6) k/uL RBC 4.44 (3.80-5.40) m/uL Hgb 15.0 (11.4-16.0) gm/dL Hct 44.5 (34.0-46.0) % MCV 100.2 H (80.0-100.0) fL MCH 33.8 (25.0-35.0) pg MCHC 33.8 (31.0-37.0) g/dL RDW 14.0 (11.5-15.5) % Plt Count 284 (150-450) k/uL MPV 7.5 Neutrophils % 77 % Lymphocytes % 10 % Monocytes % 4 % Eosinophils % 6 % Basophils % 1 % Neutrophils # 7.6 (1.3-7.7) k/uL Lymphocytes # 1.0 (1.0-4.8) k/uL Monocytes # 0.4 (0-1.0) k/uL Eosinophils # 0.6 (0-0.7) k/uL Basophils # 0.1 (0-0.2) k/uL Macrocytosis Slight PT 10.0 (9.0-12.0) sec INR 0.9 (<1.2) APTT 25.2 (22.0-30.0) sec Sodium 137 (137-145) mmol/L Potassium 3.9 (3.5-5.1) mmol/L Chloride 107 (98-107) mmol/L Carbon Dioxide 19 L (22-30) mmol/L Anion Gap 11 mmol/L BUN 7 (7-17) mg/dL Creatinine 0.63 (0.52-1.04) mg/dL Est GFR (CKD-EPI)AfAm >90 (>60 ml/min/1.73 sqM) Est GFR (CKD-EPI)NonAf >90 (>60 ml/min/1.73 sqM) Glucose 141 H (74-99) mg/dL Plasma Lactic Acid Tyree (0.7-2.0) mmol/L Calcium 9.5 (8.4-10.2) mg/dL Magnesium 1.8 (1.6-2.3) mg/dL Total Bilirubin 0.8 (0.2-1.3) mg/dL AST 23 (14-36) U/L ALT 17 (4-34) U/L Alkaline Phosphatase 91 (38-126) U/L Troponin I (0.000-0.034) ng/mL Total Protein 7.5 (6.3-8.2) g/dL Albumin 4.8 (3.5-5.0) g/dL 09/30/20 09/30/20 Range/Units 09:24 09:24 WBC (3.8-10.6) k/uL RBC (3.80-5.40) m/uL Hgb (11.4-16.0) gm/dL Hct (34.0-46.0) % MCV (80.0-100.0) fL MCH (25.0-35.0) pg MCHC (31.0-37.0) g/dL RDW (11.5-15.5) % Plt Count (150-450) k/uL MPV Neutrophils % % Lymphocytes % % Monocytes % % Eosinophils % % Basophils % % Neutrophils # (1.3-7.7) k/uL Lymphocytes # (1.0-4.8) k/uL Monocytes # (0-1.0) k/uL Eosinophils # (0-0.7) k/uL Basophils # (0-0.2) k/uL Macrocytosis PT (9.0-12.0) sec INR (<1.2) APTT (22.0-30.0) sec Sodium (137-145) mmol/L Potassium (3.5-5.1) mmol/L Chloride (98-107) mmol/L Carbon Dioxide (22-30) mmol/L Anion Gap mmol/L BUN (7-17) mg/dL Creatinine (0.52-1.04) mg/dL Est GFR (CKD-EPI)AfAm (>60 ml/min/1.73 sqM) Est GFR (CKD-EPI)NonAf (>60 ml/min/1.73 sqM) Glucose (74-99) mg/dL Plasma Lactic Acid Tyree 1.4 (0.7-2.0) mmol/L Calcium (8.4-10.2) mg/dL Magnesium (1.6-2.3) mg/dL Total Bilirubin (0.2-1.3) mg/dL AST (14-36) U/L ALT (4-34) U/L Alkaline Phosphatase (38-126) U/L Troponin I <0.012 (0.000-0.034) ng/mL Total Protein (6.3-8.2) g/dL Albumin (3.5-5.0) g/dL Critical Care Time Critical Care Time: Yes Total Critical Care Time: 35 Disposition Clinical Impression: Asthma with status asthmaticus Disposition: HOME SELF-CARE Is patient prescribed a controlled substance at d/c from ED?: No Time of Disposition: 11:23
[2020-09-30 09:36] LABS: Basophils # (A) 0.1 k/uL (0-0.2); Basophils % (A) 1 %; Eosinophils # (A) 0.6 k/uL (0-0.7); Eosinophils % (A) 6 %; HCT 44.5 % (34.0-46.0); Lymphocytes % (A) 10 %; MCH 33.8 pg (25.0-35.0); MCHC 33.8 g/dL (31.0-37.0); MCV 100.2 fL (80.0-100.0); Macrocytosis Slight; Mean Platelet Volume 7.5; Monocytes # (A) 0.4 k/uL (0-1.0); Monocytes % (A) 4 %; Neutrophils # (A) 7.6 k/uL (1.3-7.7); Neutrophils % (A) 77 %; Platelet Count 284 k/uL (150-450); RBC 4.44 m/uL (3.80-5.40); WBC 9.9 k/uL (3.8-10.6)
[2020-09-30 09:47] LABS: INR 0.9 (<1.2); Partial Thromboplastin Time 25.2 sec (22.0-30.0)
[2020-09-30 09:51] LABS: ALT 17 U/L (4-34); AST 23 U/L (14-36); African American GFR (CKD) >90 (>60 ml/min/1.73 sqM); Albumin 4.8 g/dL (3.5-5.0); Alkaline Phosphatase 91 U/L (38-126); Anion Gap 11 mmol/L; Blood Urea Nitrogen 7 mg/dL (7-17); Calcium 9.5 mg/dL (8.4-10.2); Carbon Dioxide 19 mmol/L (22-30); Chloride 107 mmol/L (98-107); Glucose 141 mg/dL (74-99); Magnesium 1.8 mg/dL (1.6-2.3); Non-African American GFR(CKD) >90 (>60 ml/min/1.73 sqM); Potassium 3.9 mmol/L (3.5-5.1); Sodium 137 mmol/L (137-145); Total Bilirubin 0.8 mg/dL (0.2-1.3); Total Protein 7.5 g/dL (6.3-8.2)
--- NOTE | 2020-09-30 10:29 | XR ---
EXAMINATION TYPE: XR chest 2V DATE OF EXAM: 09/30/2020 COMPARISON: Chest x-ray 04/03/2018 HISTORY: Difficulty breathing, shortness of breath and cough TECHNIQUE: Frontal and lateral views of the chest are obtained. FINDINGS: There is no focal air space opacity, pleural effusion, or pneumothorax seen. The cardiac silhouette size is within normal limits. There are overlying artifacts. The osseous structures are i ntact. IMPRESSION: No acute cardiopulmonary process, follow-up as indicated.
[2020-09-30] MEDS ORDERED: IPRATROPIUM-ALBUTEROL 3 ML NEB INHALATION PRN (11:24)
[2020-09-30] MEDS ORDERED: methylPREDNISolone SOD SUCCI 125 MG/2 ML VIAL IV SCH ×2 (12:00→15:00)
[2020-09-30 13:13] VITALS: RESP 18
[2020-09-30 13:54] VITALS: BP 128/88; PULSE 98
== END 2020-09-30 13:54 | disposition home or self-care (01) ==
LOC: EC 09:07 → 4SSUR 11:24 → UNDOADMIN 11:24 → EC 13:54
DX: J45.902 Unspecified asthma with status asthmaticus (principal); E03.9 Hypothyroidism, unspecified; F90.9 Attention-deficit hyperactivity disorder, unspecified type; F41.9 Anxiety disorder, unspecified; F12.90 Cannabis use, unspecified, uncomplicated; F17.200 Nicotine dependence, unspecified, uncomplicated; Z79.899 Other long term (current) drug therapy; E87.6 Hypokalemia
CPT/HCPCS: 36415; 94640 ×2; 93005; 80053; 83605; 83735; 84484; 85025; 85610; 85730; 71046; 99291; 96365; 96366; 96375; 96372; J3105; J2930; J3475

== ENCOUNTER → 2021-06-29 | Outpatient (CLI) | payer BC ==
--- NOTE | 2021-06-29 13:19 | MM ---
Reason for Exam: Clinical finding. Last mammogram was performed 6 year(s) and 11 month(s) ago. Patient History: Menarche at age 11. First Full-Term at age 17. Premenopausal. Hormonal Contraceptives for 6 months. Maternal grandmother had breast cancer, age 40. Maternal aunt had breast cancer, age 40. Last menstrual period: 06/22/2021 Risk Values: Elizabeth 5 year model risk: 0.4%. NCI Lifetime model risk: 8.0%. Film Views: Bilateral CC views were taken. Bilateral MLO views were taken. Tissue Density: The breast tissue is heterogeneously dense. This may lower the sensitivity of mammography. Findings: Analyzed By CAD. Pattern is Stable. No significant interval change is evident. No suspicious spiculated or lobular masses are evident. No suspicious mammographic abnormality to account for right breast pain. Overall Assessment: Benign, BI-RAD 2 Management: Screening Mammogram of both breasts in 1 year. Clinical Correlation A clinical breast exam by your physician is recommended on an annual basis and results should be correlated with mammographic findings. This exam should not preclude additional follow-up of suspicious palpable abnormalities. Results were given to the patient verbally at the time of exam. Clinical management patient's reported breast pain. Electronically signed and approved by: Jag Armenta D.O. Radiologis
== END | disposition home or self-care (01) ==
LOC: RADMAMWWP 12:51
PROVIDERS: ATTEND Internal Medicine
DX: R92.8 Other abnormal and inconclusive findings on diagnostic imaging of breast (principal); Z80.3 Family history of malignant neoplasm of breast
CPT/HCPCS: 77062; 77066

== ENCOUNTER → 2023-11-26 | Outpatient (CLI) | payer BC ==
--- NOTE | 2023-11-27 19:18 | MM ---
Reason for Exam: Screening (asymptomatic). Last mammogram was performed 2 year(s) and 5 month(s) ago. Patient History: Menarche at age 11. First Full-Term at age 17. Premenopausal. Hormonal Contraceptives for 6 months. Maternal grandmother had breast cancer, age 40. Maternal aunt had breast cancer, age 40. Last menstrual period: 11/15/2023 Risk Values: Elizabeth 5 year model risk: 0.6%. NCI Lifetime model risk: 7.8%. Prior Study Comparison: 08/03/2014 Bilateral Diagnostic Mammogram, [facility]. 06/29/2021 Bilateral MG 3D diag mammo w/cad [facility], [facility]. Tissue Density: The breasts are heterogeneously dense, which may obscure small masses. Findings: Analyzed By CAD. Unchanged areas of asymmetric density. No persisting abnormality on 3 images. There is no suspicious group of microcalcifications or new suspicious mass in either breast. Overall Assessment: Benign, BI-RAD 2 Management: Screening Mammogram of both breasts in 1 year. . Patient should continue monthly self-breast exams. A clinical breast exam by your physician is recommended on an annual basis. This exam should not preclude additional follow-up of suspicious palpable abnormalities. Note on Elizabeth scores and lifetime risk: 1. A Elizabeth score greater than 3% is considered moderate risk. If this is the case, consider specialist referral to assess eligibility for a risk reducing agent. 2. If overall lifetime risk for the development of breast cancer is 20% or higher, the patient may qualify for future screening with alternating mammogram and breast MRI. [facility], , 11/27/2023 7:15 PM. Electronically signed and approved by: Rita Putnam M.D. Radiologist
== END | disposition home or self-care (01) ==
LOC: RADMAMWWP 10:42
PROVIDERS: ATTEND Internal Medicine
CPT/HCPCS: 77063; 77067